=== PATIENT | female | born 1945 | race Caucasian/White ===

== ENCOUNTER 2017-05-26 23:23 | Emergency (ER) | payer MEDICARE, MEDICAID ==
[~2017-05-26] VITALS: Ht 165.1 cm; Wt 113.4 kg
[~2017-05-26 23:23] MED LIST: AC325T PO; AC500T PO; ALBU17AE3 INH; ALBU8.5H2 IH; ASCO500T20 PO; ASP81TEC PO; ATRV10T PO; BIMA2.5D4 OP; BRIM5DRO7 OS; CALC-760 PO; CALC-80 PO; CARB10DR OD; CARB15DR75 OD; CEFD300C3 PO; CEFP500T4 PO; CEFU500T PO; CEPH500C PO; CIPR500T78 PO; CLC500CT PO; CLIN-62 PO; CLIN300C3 PO; CLOT15CR5 TP; DILT180C PO; DILT180C55 PO; DLT120CCR PO; DLT90CCR PO; FLT05NA16; HYDR-34 PO; HYDR-3730 PO; HYDR-3816 PO; HYDR-707 PO; HYDR1TAB PO; LECI400C PO; LECITHIN 1200 MG PO; LEVO500T78 PO; LOSA25TA21 PO; MAGN200T3 PO; MAGNESIUM PO; MECL-124 PO; MELO-195 PO; MELO-198 PO; MELO15TA14 PO; METF500T4 PO; METH4TAB PO; METR500T17 PO; MNTL10T PO; MTF500T PO; MTP25TSR PO; MULT-974 PO; MULT1CAP27 PO; NITR-65 PO; NTR.4SL SL; OMEG1CAP51 PO; OMEG1CAP74 PO; OMG1KC PO; OXYC-12 PO; OXYC1TAB25 PO; PANT40TA PO; PENI500T PO; PNT40TEC PO; PRAS10TA6 PO; PRAV80TA2 PO; PRM25T PO; PRV20T PO; SCR1T1 PO; TIAZAC; [UNRECOGNIZED DRUG - CODE] PO; [UNRECOGNIZED DRUG - OTHER] PO
[2017-05-26] MEDS ORDERED: NS IV 1000 ML 1,000 ML IV ONE (23:39)
[2017-05-26] MEDS ORDERED: ACETAMINOPHEN 500 MG TAB (TYLENOL) PO PRN (23:45)
[2017-05-26 23:46] LABS: BILIRUBIN,URINE NEGATIVE (NEGATIVE); KETONES,URINE NEGATIVE (NEGATIVE); LEUKOCYTE ESTERASE ,URINE 2+ (NEGATIVE); NITRITE,URINE NEGATIVE (NEGATIVE); PH,URINE 6 (5-9); PROTEIN,URINE NEGATIVE (NEGATIVE); UROBILINOGEN,URINE NORMAL (NORMAL)
[2017-05-26 23:56] LABS: WBC,URINE 25-50 /HPF
[2017-05-26 23:56] LABS: BASOPHILS % (AUTO) 0 % (0-10); EOSINOPHILS # (AUTO) 0.1 10^3/uL (0.0-0.3); EOSINOPHILS % (AUTO) 1 % (0-10); LYMPHOCYTES # (AUTO) 0.9 X 10^3 (1.0-4.0); LYMPHOCYTES % (AUTO) 6 % (12-44); MEAN CORPUSCULAR HEMOGLOBIN 31 PG (25-34); MEAN CORPUSCULAR HGB CONC 34 G/DL (32-36); MEAN CORPUSCULAR VOLUME 91 FL (80-99); MEAN PLATELET VOLUME 8.8 FL (7.4-10.4); MONOCYTES # (AUTO) 0.8 X 10^3 (0.0-1.0); MONOCYTES % (AUTO) 5 % (0-12); NEUTROPHILS # (AUTO) 12.7 X 10^3 (1.8-7.8); NEUTROPHILS % (AUTO) 88 % (42-75); PLATELET COUNT 305 10^3/uL (130-400); RED BLOOD COUNT 4.61 10^6/uL (4.35-5.85); RED CELL DISTRIBUTION WIDTH 13.2 % (10.0-14.5); WHITE BLOOD COUNT 14.5 10^3/uL (4.3-11.0)
[2017-05-27 00:05] LABS: INR 0.9 (0.8-1.4); PROTHROMBIN TIME PATIENT 12.2 SEC (12.2-14.7)
[2017-05-27 00:12] LABS: BAND NEUTROPHILS 4 %; BASOPHILS % (MANUAL) 0 %; EOSINOPHILS % (MANUAL) 1 %; LYMPHOCYTES % (MANUAL) 3 %; NEUTROPHILS % (MANUAL) 89 %; REACTIVE LYMPHOCYTES 1 %
[2017-05-27 00:16] LABS: ALANINE AMINOTRANSFERASE 19 U/L (0-55); ANION GAP 14 MMOL/L (5-14); ASPARTATE AMINO TRANSFERASE 18 U/L (5-34); BILIRUBIN,TOTAL 0.8 MG/DL (0.1-1.0); BLOOD UREA NITROGEN 11 MG/DL (7-18); BUN/CREATININE RATIO 15; CALCIUM 9.3 MG/DL (8.5-10.1); CARBON DIOXIDE 21 MMOL/L (21-32); CHLORIDE 101 MMOL/L (98-107); CREATININE SERUM 0.71 MG/DL (0.60-1.30); GFR ESTIMATED > 60; GLUCOSE 164 MG/DL (70-105); POTASSIUM 4.2 MMOL/L (3.6-5.0); SODIUM 136 MMOL/L (135-145); TOTAL PROTEIN 7.1 GM/DL (6.4-8.2)
--- NOTE | 2017-05-27 00:18 | ED General ---
General Stated Complaint: VOMITING,BLOOD IN URINE,FEVER Source of Information: Patient, Family Exam Limitations: No Limitations History of Present Illness Time Seen by Provider: 23:35 Initial Comments Here with report of nausea and vomiting and difficulty with urination. Also reports fever today. Overall not been feeling well for the last 18-24 hours. States that she is feeling weak. Denies diarrhea. Does have increasing back pain that is typical for worse and normal. Also complains of headache. Timing/Duration: 12-24 Hours Severity: Moderate Associated Systoms: No Chest Pain, No Cough, Fever/Chills, Nausea/Vomiting, No Shortness of Air, Weakness Allergies and Home Medications Allergies Coded Allergies: sulfabenzamide (Unverified Allergy, Mild, 03/27/12) erythromycin base (Verified Allergy, Unknown, 10/17/06) penicillin G (Verified Allergy, Unknown, 10/17/06) nitrofurantoin (Verified Adverse Reaction, Unknown, 07/02/16) Possible cause of acute hepatitis Home Medications Acetaminophen 325 Mg Tab, 650 MG PO Q4H PRN for PAIN, (Reported) PRN PAIN Albuterol 8.5 Gm Hfa.aer.ad, 2 PUFF IH QID PRN for SHORTNESS OF BREATH, ( Reported) NEEDED FOR SHORTNESS OF BREATH Ascorbic Acid 500 Mg Tablet, 500 MG PO DAILY, (Reported) Aspirin 81 Mg Tabec, 81 MG PO DAILY, (Reported) Bimatoprost 2.5 Ml Drops, 2.5 ML OP DAILY, (Reported) Calcium Carbonate 500 Mg Tab.chew, 500-1,000 MG PO TID PRN for INDIGESTION, ( Reported) TAKES 1 TO 2 (500MG) TABLETS THREE TIMES DAILY AFTER MEALS NEEDED FOR INDIGESTION Calcium Carbonate/Vitamin D3 1 Each Tablet, 1 TAB PO DAILY, (Reported) Carboxymethylcellulose Sodium 15 Ml Drops, 1 DROP OD BID, (Reported) Cefuroxime Axetil 500 Mg Tablet, 500 MG PO BID, #14 Prescribed by: HEATHER UMANA on 09/14/16 1327 Diltiazem Hcl 180 Mg Cap.sr.24h, 180 MG PO DAILY, (Reported) Fluticasone Propionate 16 Gm [place], 2 SPRAYS NA BID PRN for ALLERGIES, (Reported ) Hydrocodone/Acetaminophen 1 Each Tablet, 1 EACH PO Q6H PRN for ABDOMINAL PAIN, # 30 Ref 0 Prescribed by: MARIN JIN on 08/28/15 2235 Losartan Potassium 25 Mg Tablet, 25 MG PO DAILY, (Reported) Magnesium 200 Mg Tablet, 200 MG PO HS, (Reported) Meloxicam 15 Mg Tablet, 15 MG PO HS, (Reported) Montelukast Sodium 10 Mg Tab, 10 MG PO HS, (Reported) Multivitamin 1 Each Tablet, 1 TAB PO DAILY, (Reported) Nitroglycerin 0.4 Mg Subl, SL UD PRN for CHEST PAIN, (Reported) 1 TABLET EVERY 5 MINUTES X 3 DOSES NEEEDED FOR CHEST PAIN [place] 3 Polyunsat Fatty Acids 1,000 Mg Cap, 1,000 MG PO HS, (Reported) [place]-3/Dha/Epa/Fish Oil 1,000 Mg Capsule, 2,000 MG PO DAILY, (Reported) TAKES 2 (1000MG) CAPSULE Pantoprazole Sodium 40 Mg Tablet.dr, 80 MG PO BID, (Reported) 40 MG IN AM 40 MG AT HS [Lecithin 1200MG] , 1,200 MG PO BID, (Reported) Constitutional: see HPI, chills, No diaphoresis, fever, weakness EENTM: no symptoms reported Respiratory: No cough, No short of breath Cardiovascular: No chest pain, No edema Gastrointestinal: No abdominal pain, No diarrhea, nausea, vomiting Genitourinary: see HPI, dysuria, hematuria Musculoskeletal: see HPI, back pain, muscle pain Skin: no symptoms reported All Other Systems Reviewed Negative Unless Noted: Yes Past Tjrghzy-Gnsdxi-Enczog Hx Patient Social History Alcohol Use: Denies Use Recreational Drug Use: No Smoking Status: Never a Smoker 2nd Hand Smoke Exposure: Yes Recent Foreign Travel: No Contact w/Someone Who Travel: No Recent Hopitalizations: No Immunizations Up To Date Tetanus Booster (TDap): Less than 5yrs Date of Pneumonia Vaccine: Jul 18, 2012 Date of Influenza Vaccine: Sep 04, 2015 Seasonal Allergies Seasonal Allergies: No Surgeries HX Surgeries: Yes (CATH 2011,[id number], D&C 80', CHOLY 78', UMB HERNIA REPAIR) Surgeries: Coronary Stent, Eye Surgery, Gallbladder Respiratory Hx Respiratory Disorders: Yes (WEARS CPAP AT HOME) Respiratory Disorders: Asthma, Sleep Apnea, COPD Cardiovascular Hx Cardiac Disorders: Yes (STENT x1) Cardiac Disorders: Coronary Artery Disease, High Cholesterol, Hypertension Neurological Hx Neurological Disorders: Yes Neurological Disorders: Headaches /Migraines 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 System Hx 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 Disorders: No Sexually Transmitted Disease: No HIV/AIDS: No Female 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 Disorders: 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 Genitourinary Hx Genitourinary Disorders: No Gastrointestinal Hx Gastrointestinal Disorders: Yes (SOME CONSTIPATION) Gastrointestinal Disorders: Abdominal Hernia, Gastroesophageal Reflux Musculoskeletal Hx Musculoskeletal Disorders: Yes (ARTHRITIS) Musculoskeletal Disorders: Rheumatoid Arthritis Endocrine Hx Endocrine Disorders: Yes Endocrine Disorders: Diabetes, Non-Insulin dep HEENT HX ENT Disorders: No HEENT Disorders: Glaucoma Cancer Hx Cancer: No Psychosocial Hx Psychiatric Problems: No Integumentary HX Skin/Integumentary Disorder: Yes Skin/Integumentary Disorders: Psoriasis Blood Transfusions Hx Blood Disorders: No Adverse Reaction to a Blood Tr: No Reviewed Nursing Assessment Reviewed/Agree w Nursing PMH: Yes Family Medical History Family Medial History: Cancer 03 MOTHER, Cataract 03 MOTHER, Chest pain 03 FATHER, Congenital heart disease 03 FATHER, Congestive heart failure 03 FATHER, Family history: Arthritis 03 MOTHER, Family history: Asthma 03 MOTHER, Family history: Cardiovascular disease 03 FATHER, Family history: Coronary thrombosis 03 MOTHER, Family history: Diabetes mellitus 09 SISTER Family history: Hypertension 03 FATHER, 03 MOTHER, 09 SISTER 09 SISTER 09 SISTER 09 SISTER Family history: Thyroid disorder 03 MOTHER, Headache 03 FATHER, 03 MOTHER, 09 SISTER 09 SISTER 09 SISTER 09 SISTER Hearing loss 09 SISTER Heart disease 03 FATHER, Hypercholesterolemia 03 FATHER, 09 SISTER Myocardial infarction 03 FATHER, Parkinson's disease 03 MOTHER, Psychotic disorder 09 SISTER Stroke 09 SISTER Visual impairment 03 FATHER, 03 MOTHER, 09 SISTER 09 SISTER 09 SISTER 09 SISTER Physical Exam-Suspected Sepsis Physical Exam Vital Signs Capillary Refill : General Appearance: No Apparent Distress, WD/WN HEENT: PERRL/EOMI, Pharynx Normal Neck: Non Tender, Supple Respiratory: Lungs Clear, Normal Breath Sounds Cardiovascular: Regular Rate, Rhythm, No Murmur Gastrointestinal: Non Tender, Soft Back: Normal Inspection, No CVA Tenderness, No Vertebral Tenderness Extremity: Non Tender, No Calf Tenderness Neurologic/Psychiatric: Alert, Oriented x3 Skin: normal color, warm/dry Focused Exam Lactic Acid Level Laboratory Tests Test 05/26/17 23:43 Lactic Acid Level 1.89 MMOL/L (0.50-2.00) Progress/Results/Core Measures Suspected Sepsis SIRS Temperature: Pulse: Respiratory Rate: Laboratory Tests 05/26/17 23:43: White Blood Count 14.5H Blood Pressure / Mean: Laboratory Tests 05/26/17 23:43: Creatinine 0.71, INR Comment 0.9, Platelet Count 305, Total Bilirubin 0.8 Results/Orders Lab Results Laboratory Tests Test 05/26/17 23:38 05/26/17 23:43 Range/Units Urine Color YELLOW Urine Clarity SLIGHTLY CLOUDY Urine pH 6 5-9 Urine Specific [place] 1.015 L 1.016-1.022 Urine Protein NEGATIVE NEGATIVE Urine Glucose (UA) NEGATIVE NEGATIVE Urine Ketones NEGATIVE NEGATIVE Urine Nitrite NEGATIVE NEGATIVE Urine Bilirubin NEGATIVE NEGATIVE Urine Urobilinogen NORMAL NORMAL MG/DL Urine Leukocyte Esterase 2+ H NEGATIVE Urine RBC (Auto) 1+ H NEGATIVE Urine RBC 0-2 /HPF Urine WBC 25-50 H /HPF Urine Squamous Epithelial Cells 10-25 H /HPF Urine Crystals NONE /LPF Urine Bacteria TRACE /HPF Urine Casts NONE /LPF Urine Mucus MODERATE H /LPF Urine Culture Indicated YES White Blood Count 14.5 H 4.3-11.0 10^3/uL Red Blood Count 4.61 4.35-5.85 10^6/uL Hemoglobin 14.1 11.5-16.0 G/DL Hematocrit 42 35-52 % Mean Corpuscular Volume 91 80-99 FL Mean Corpuscular Hemoglobin 31 25-34 PG Mean Corpuscular Hemoglobin Concent 34 32-36 G/DL Red Cell Distribution Width 13.2 10.0-14.5 % Platelet Count 305 130-400 10^3/uL Mean Platelet Volume 8.8 7.4-10.4 FL Neutrophils (%) (Auto) 88 H 42-75 % Lymphocytes (%) (Auto) 6 L 12-44 % Monocytes (%) (Auto) 5 0-12 % Eosinophils (%) (Auto) 1 0-10 % Basophils (%) (Auto) 0 0-10 % Neutrophils # (Auto) 12.7 H 1.8-7.8 X 10^3 Lymphocytes # (Auto) 0.9 L 1.0-4.0 X 10^3 Monocytes # (Auto) 0.8 0.0-1.0 X 10^3 Eosinophils # (Auto) 0.1 0.0-0.3 10^3/uL Basophils # (Auto) 0.0 0.0-0.1 10^3/uL Neutrophils % (Manual) 89 % Lymphocytes % (Manual) 3 % Monocytes % (Manual) 2 % Eosinophils % (Manual) 1 % Basophils % (Manual) 0 % Band Neutrophils 4 % Reactive Lymphocytes 1 % Blood Morphology Comment NORMAL Prothrombin Time 12.2 12.2-14.7 SEC INR Comment 0.9 0.8-1.4 Activated Partial Thromboplast Time 28 24-35 SEC Sodium Level 136 135-145 MMOL/L Potassium Level 4.2 3.6-5.0 MMOL/L Chloride Level 101 98-107 MMOL/L Carbon Dioxide Level 21 21-32 MMOL/L Anion Gap 14 5-14 MMOL/L Blood Urea Nitrogen 11 7-18 MG/DL Creatinine 0.71 0.60-1.30 MG/DL Estimat Glomerular Filtration Rate > 60 BUN/Creatinine Ratio 15 Glucose Level 164 H 70-105 MG/DL Lactic Acid Level 1.89 0.50-2.00 MMOL/L Calcium Level 9.3 8.5-10.1 MG/DL Total Bilirubin 0.8 0.1-1.0 MG/DL Aspartate Amino Transf (AST/SGOT) 18 5-34 U/L Alanine Aminotransferase (ALT/SGPT) 19 0-55 U/L Alkaline Phosphatase 71 40-136 U/L Total Protein 7.1 6.4-8.2 GM/DL Albumin 4.0 3.2-4.5 GM/DL My Orders Orders - TRAM JENSEN MD Cbc With Automated Diff (05/26/17 23:39) Comprehensive Metabolic Panel (05/26/17 23:39) Lactic Acid Analyzer (05/26/17 23:39) Blood Culture (05/26/17 23:39) Sputum Culture (05/26/17 23:39) Ua Culture If Indicated (05/26/17 23:39) Protime With Inr (05/26/17 23:39) Partial Thromboplastin Time (05/26/17 23:39) Chest 1 View, Ap/Pa Only (05/26/17 23:39) O2 (05/26/17 23:39) Acetaminophen Tablet (Tylenol Tablet) (05/26/17 23:45) Saline Lock/Iv-Start (05/26/17 23:39) Vital Signs Adult Sepsis Patie Q1HR (05/26/17 23:39) Remove Rings In Anticipation O (05/26/17 23:39) Ns Iv 1000 Ml (Sodium Chloride 0.9%) (05/26/17 23:39) Urine Culture (05/26/17 23:38) Manual Differential (05/26/17 23:43) Ceftriaxone Injection (Rocephin Injectio (05/27/17 01:00) Ketorolac Injection (Toradol Injection) (05/27/17 00:54) Medications Given in ED Current Medications Medications Dose Ordered Sig/Tyra Route Start Time Stop Time Status Last Admin Dose Admin Acetaminophen 1,000 mg ONCE PRN PO 05/26/17 23:45 05/26/17 23:53 DC 05/26/17 23:53 1,000 MG Ceftriaxone Sodium 1000 mg/ Sodium Chloride 50 ml @ 100 mls/hr ONCE ONCE IV 05/27/17 01:00 05/27/17 01:29 DC 05/27/17 01:08 100 MLS/HR Sodium Chloride 1,000 ml @ 0 mls/hr Q0M ONCE IV 05/26/17 23:39 05/26/17 23:42 DC 05/26/17 23:53 1,000 MLS/HR Vital Signs/I&O Capillary Refill : Progress Note : Progress Note Seen and evaluated. IV, labs, UA, normal saline 1 L bolus, lactic acid and blood cultures ordered. Tylenol 1 g by mouth given. Monitor patient. Rocephin 1 g IV for UTI. Toradol 30 mg IV for pain. Monitor patient. Improved at 0155: Discharged home with return precautions. Patient verbalize understanding instructions and agreement with plan. Diagnostic Imaging Diagonstic Imaging: Xray Plain Films/CT/US/NM/MRI: chest Comments No acute findings Reviewed: Reviewed by Me Departure Impression Impression: Primary Impression: Urinary tract infection Qualified Codes: N30.00 - Acute cystitis without hematuria Disposition: HOME, SELF-CARE Condition: Stable Departure-Patient Inst. Decision time for Depature: 01:57 Referrals: VERO VERDUGO DO (PCP) Primary Care Physician REESE HEBERT (Family) Primary Care Physician Patient Instructions: Low Back Pain (DC), Urinary Tract Infection, Adult (DC) Add. Discharge Instructions: Take medications as directed. Drink plenty of fluids. Follow-up with your DrYael in a few days for recheck. Return for worse pain, fever, vomiting, weakness, breathing problems or other concerns as needed. Scripts Hydrocodone/Acetaminophen (Hydrocodon -Acetaminophen 5-325) 1 Each Tablet 1 EACH PO Q4H Y for PAIN-MODERATE, #10 TAB 0 Refills Prov: TRAM JENSEN MD 05/27/17 Ciprofloxacin HCl (Ciprofloxacin HCl) 500 Mg Tablet 500 MG PO BID, #14 TAB Prov: TRAM JENSEN MD 05/27/17 TRAM JENSEN MD May 27, 2017 00:18
[2017-05-27] MEDS ORDERED: KETOROLAC 30 MG/ML VIAL IVP STA (00:54)
[2017-05-27] MEDS ORDERED: cefTRIAXone INJECTION 1,000 MG in NS (IVPB) 50 ML IV ONE (01:00)
[2017-05-27] MEDS ORDERED: HYDR-3812 PO (01:59)
[2017-05-27] MEDS ORDERED: CIPR500T4 PO (01:59)
[2017-05-27] MEDS ORDERED: RX-HYDROCODONE/APAP 5/325 MG #4 TAB PK PO PRN (02:00)
[2017-05-27 02:08] VITALS: BP 133/72
--- NOTE | 2017-05-27 07:02 | Diagnostic Imaging Report ---
INDICATION: Chest pain Portable chest 1:33 PM Heart size and pulmonary vascularity are normal. Lungs are clear. There are no effusions or pneumothoraces. IMPRESSION: Negative chest Dictated by: Dictated on workstation # [id number]
== END 2017-05-27 02:08 | disposition home or self-care (01) ==
LOC: EDUNIT# 23:23 → ER 23:26
DX: N39.0 Urinary tract infection, site not specified (principal); J44.9 Chronic obstructive pulmonary disease, unspecified; I25.10 Atherosclerotic heart disease of native coronary artery without angina pectoris; I10 Essential (primary) hypertension; E78.00 Pure hypercholesterolemia, unspecified; G43.909 Migraine, unspecified, not intractable, without status migrainosus; K21.9 Gastro-esophageal reflux disease without esophagitis; M06.9 Rheumatoid arthritis, unspecified; G47.30 Sleep apnea, unspecified; Z79.82 Long term (current) use of aspirin; Z82.49 Family history of ischemic heart disease and other diseases of the circulatory system; Z87.19 Personal history of other diseases of the digestive system; Z95.5 Presence of coronary angioplasty implant and graft
CPT/HCPCS: 36415; 71010; 80053; 81000; 83605; 85007; 85027; 85610; 85730; 87040; 87088; 96361; 96365; 96375

== ENCOUNTER 2018-02-13 22:33 | Emergency (ER) | payer MEDICARE, MEDICAID ==
[~2018-02-13] VITALS: Ht 165.1 cm; Wt 113.4 kg
[~2018-02-13 22:33] MED LIST changes: +ACET325T49 PO; +ACHD5005 PO; +ASCO500T7 PO; +ASPI-983 PO; -BIMA2.5D4 OP; +BIMA2.5D4 OU; +CALC-9 PO; +CALC500T3 PO; +CARB15DR74 OU; +CIPR500T4 PO; +FLUT16SP22 NS; +MAGN200T PO; +MAGN250T13 PO; +MELO15TA39 PO; +MONT10TA24 PO; +MULT-35 PO; +NITR0.4T39 SL; +PANT40TA3 PO; +RT-ALBUINH IH; +[UNRECOGNIZED DRUG - CODE] PO
--- OUTSIDE RECORDS SUMMARY | 2018-02-13 22:38 | XMS REPORT | Encounter Summary ---
Author Author [facility] Organization [facility] Address Unknown Phone Unavailable Care Team Providers Care Civil Lawyer Name Role Phone Aroldo Rios NP PCP Encounter Details Date Type Department Care Team Description 06/13/2017 [facility] [address] [place] [address] Social History Tobacco Use Types Packs/Day Years Used Date Never Smoker Smokeless Tobacco: Never Used Alcohol Use Drinks/Week oz/Week Comments No 0 Standard 0.0 drinks or equivalent Sex Assigned at Date Recorded Not on file as of this encounter Functional Status Functional Status Response Date of Assessment Does the patient have a hearing impairment: No 06/13/2017 Does the patient have a visual impairment: Yes 06/13/2017 Does the patient have impaired ambulation: Yes 06/13/2017 Does the patient have an activity of daily living No 06/13/2017 (ADL) impairment: Does the patient have an instrumental activity of No 06/13/2017 daily living (IADL) impairment: Cognitive Status Response Date of Assessment Does the patient have a cognitive impairment: No 06/13/2017 as of this encounter Plan of Treatment Date Type Specialty Care Team Description 06/13/2017 Procedure Pass Neurosurgery as of this encounter Visit Diagnoses Not on filein this encounter
--- OUTSIDE RECORDS SUMMARY | 2018-02-13 22:38 | XMS REPORT | Clinical Summary ---
Author Author [facility] Organization [facility] Address Unknown Phone Unavailable Care Team Providers Care Lamination Assembler Name Role Phone Aroldo Rios NP PCP Source Comments Some departments are not documenting in the electronic medical record. If you do not see the information that you expected, contact Release of Information in the Health Information Management department at [phone] for further assistance in locating additional records.[facility] Allergies Active Allergy Reactions Severity Noted Date Comments Ampicillin RASH, AGITATION Medium 01/03/2017 Sulfa (Sulfonamide UNKNOWN Low 01/03/2017 Antibiotics) Current Medications Prescription Sig. Disp. Refills Start End Date Status Date Magnesium 200 mg tab Take by mouth. Active FLAXSEED OIL (OMEGA 3 PO) Take by mouth. Active metFORMIN (GLUCOPHAGE) Take 500 mg by mouth Active 500 mg tabletIndications: twice daily with meals. 750 MG IN THE MORNING, Indications: 750 MG IN 500 MG AT BEDTIME. THE MORNING, 500 MG AT BEDTIME. meloxicam (MOBIC) 15 mg Take 15 mg by mouth Active tablet daily. acetaminophen (TYLENOL) Take 325 mg by mouth Active 325 mg tablet every 4 hours as needed for Pain. calcium carbonate (TUMS) Chew 500 mg by mouth Active 500 mg (200 mg elemental daily. calcium) chewable tablet Carboxymethylcellulose Place into or around Active Sodium drop eye(s). MULTIVITAMINS WITH Take by mouth. Active FLUORIDE (MULTI-VITAMIN PO) diltiazem CD (CARDIZEM Take 180 mg by mouth Active CD) 180 mg capsule daily. ascorbic acid (VITAMIN C) Take 500 mg by mouth Active 500 mg tablet daily. Lecithin 1,200 mg cap Take by mouth. Active BRIMONIDINE TARTRATE Place into or around Active (BRIMONIDINE OP) eye(s). pravastatin (PRAVACHOL) Take 20 mg by mouth at Active 20 mg tablet bedtime daily. nitroglycerin (NITRODUR) Apply 1 Patch to top of Active 0.4 mg/hr patch skin as directed daily. DOCOSAHEXANOIC ACID/EPA Take by mouth. Active (FISH OIL PO) aspirin 81 mg chewable Chew 81 mg by mouth Active tablet daily. Take with food. ALBUTEROL IN Inhale by mouth into the Active lungs. FLUTICASONE PROPIONATE Use as directed. Active (BULK) MISC montelukast (SINGULAIR) Take 10 mg by mouth at Active 10 mg tablet bedtime daily. ROSUVASTATIN CALCIUM Take by mouth. Active (CRESTOR PO) Active Problems Problem Noted Date Meningioma (HCC) 01/03/2017 Family History Medical History Relation Name Comments Hypertension Daughter Heart Failure Father Arthritis Mother Cancer Mother Hypertension Mother Melanoma Mother Stroke Mother Hypertension Son Relation Name Status Comments Daughter Father Mother Son Social History Tobacco Use Types Packs/Day Years Used Date Never Smoker Smokeless Tobacco: Never Used Alcohol Use Drinks/Week oz/Week Comments No 0 Standard 0.0 drinks or equivalent Sex Assigned at Date Recorded Not on file Last Filed Vital Signs Vital Sign Reading Time Taken Blood Pressure 156/96 06/13/2017 4:18 PM CDT Pulse 77 06/13/2017 4:18 PM CDT Temperature 36.4 C (97.5 F) 06/13/2017 4:18 PM CDT Respiratory Rate 20 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 Oxygen Saturation 98% 06/13/2017 4:18 PM CDT Inhaled Oxygen - - Concentration Weight 116.1 kg (256 lb) 06/13/2017 4:18 PM CDT Height 162.6 cm (5' 4") 06/13/2017 4:18 PM CDT Body Mass Index 43.94 06/13/2017 4:18 PM CDT Plan of Treatment Date Type Specialty Care Team Description 06/13/2017 Procedure Pass Neurosurgery Health Maintenance Due Date Last Done Comments HEPATITIS C SCREENING 1945 PHYSICAL (COMPREHENSIVE) 1952 EXAM PERTUSSIS VACCINE 1956 TETANUS VACCINE 1962 BREAST CANCER SCREENING 1985 COLORECTAL CANCER 1995 SCREENING SHINGLES VACCINE 2005 OSTEOPOROSIS SCREENING 2010 PREVNAR/PNEUMOVAX (#1) 2010 INFLUENZA VACCINE 08/06/2018 Results Not on filefrom Last 3 Months
--- OUTSIDE RECORDS SUMMARY | 2018-02-13 22:48 | XMS REPORT | Continuity of Care Document ---
Author Author [facility] Address Unknown Phone Unavailable Allergies Active Description Code Type Severity Reaction Onset Reported/Identified Relationship to Patient Clinical Status Yes erythromycin base [id number] Drug Allergy Unknown N/A 10/17/2006 Yes penicillin G [id number] Drug Allergy Unknown N/A 10/17/2006 Yes ampicillin Drug Allergy N/A N/A 03/23/2009 Yes erythromycin Drug Allergy N/ A N/A 03/23/2009 Yes ampicillin Drug Allergy 03/23/2009 Yes erythromycin Drug Allergy 03/23/2009 Yes sulfa drug Drug Allergy 05/13/2011 Yes sulfabenzamide [id number] Drug Allergy Mild N/A 03/27/2012 Yes nitrofurantoin [id number] Drug Allergy Unknown N/A 07/02/2016 Medications There is no data. Problems Date Dx Coded Attending Type Code Diagnosis Diagnosed By 08/07/2008 JAG NEWELL MD 401.1 ESSENTIAL HYPERTENSION BENIGN 08/07/2008 JAG NEWELL MD 786.07 WHEEZING 08/07/2008 JAG NEWELL MD 840.9 SPRAIN/STRAIN SHOULDER/ARM 08/07/2008 JAG NEWELL MD 401.1 ESSENTIAL HYPERTENSION BENIGN 08/07/2008 JAG NEWELL MD 786.07 WHEEZING 08/07/2008 JAG NEWELL MD 840.9 SPRAIN/STRAIN SHOULDER/ARM 08/07/2008 401.1 ESSENTIAL HYPERTENSION BENIGN 08/07/2008 786.07 WHEEZING 08/07/2008 840.9 SPRAIN/STRAIN SHOULDER/ARM 08/07/2008 JAG NEWELL MD 401.1 ESSENTIAL HYPERTENSION BENIGN 08/07/2008 JAG NEWELL MD 786.07 WHEEZING 08/07/2008 JAG NEWELL MD 840.9 SPRAIN/STRAIN SHOULDER/ARM 08/07/2008 401.1 ESSENTIAL HYPERTENSION BENIGN 08/07/2008 786.07 WHEEZING 08/07/2008 840.9 SPRAIN/STRAIN SHOULDER/ARM 08/07/2008 401.1 ESSENTIAL HYPERTENSION BENIGN 08/07/2008 786.07 WHEEZING 08/07/2008 840.9 SPRAIN/STRAIN SHOULDER/ARM 08/07/2008 401.1 ESSENTIAL HYPERTENSION BENIGN 08/07/2008 786.07 WHEEZING 08/07/2008 840.9 SPRAIN/STRAIN SHOULDER/ARM 08/07/2008 JAG NEWELL MD 401.1 ESSENTIAL HYPERTENSION BENIGN 08/07/2008 REECE THIBODEAUX, JAG 786.07 WHEEZING 08/07/2008 JAG NEWELL MD 840.9 SPRAIN/STRAIN SHOULDER/ARM 08/07/2008 401.1 ESSENTIAL HYPERTENSION BENIGN 08/07/2008 786.07 WHEEZING 08/07/2008 840.9 SPRAIN/STRAIN SHOULDER/ARM 08/07/2008 401.1 ESSENTIAL HYPERTENSION BENIGN 08/07/2008 786.07 WHEEZING 08/07/2008 840.9 SPRAIN/STRAIN SHOULDER/ARM 08/07/2008 401.1 ESSENTIAL HYPERTENSION BENIGN 08/07/2008 786.07 WHEEZING 08/07/2008 840.9 SPRAIN/STRAIN SHOULDER/ARM 08/07/2008 KARTIK GREY VERO K 401.1 ESSENTIAL HYPERTENSION BENIGN 08/07/2008 KARTIK GREY VERO K 786.07 WHEEZING 08/07/2008 VERDUGO DO VERO K 840.9 SPRAIN/STRAIN SHOULDER/ARM 08/07/2008 HAILE RENDON DDS 401.1 ESSENTIAL HYPERTENSION BENIGN 08/07/2008 HAILE RENDON DDS 786.07 WHEEZING 08/07/2008 HAILE RENDON DDS 840.9 SPRAIN/STRAIN SHOULDER/ARM 08/07/2008 KARTIK GREY VERO K 401.1 ESSENTIAL HYPERTENSION BENIGN 08/07/2008 KARTIK GREY VERO K 786.07 WHEEZING 08/07/2008 VERDUGO DO VERO K 840.9 SPRAIN/STRAIN SHOULDER/ARM 08/07/2008 REESE HEBERT APRN 401.1 ESSENTIAL HYPERTENSION BENIGN 08/07/2008 REESE HEBERT APRN 786.07 WHEEZING 08/07/2008 REESE HEBERT APRN 840.9 SPRAIN/STRAIN SHOULDER/ARM 08/07/2008 HAILE RENDON DDS 401.1 ESSENTIAL HYPERTENSION BENIGN 08/07/2008 HAILE RENDON DDS 786.07 WHEEZING 08/07/2008 HAILE RENDON DDS 840.9 SPRAIN/STRAIN SHOULDER/ARM 08/07/2008 VERDUGO DO, VERO K 401.1 ESSENTIAL HYPERTENSION BENIGN 08/07/2008 VERDUGO DO, VERO K 786.07 WHEEZING 08/07/2008 VERDUGO DO, VERO K 840.9 SPRAIN/STRAIN SHOULDER/ARM 08/07/2008 VERDUGO DO, VERO K 401.1 ESSENTIAL HYPERTENSION BENIGN 08/07/2008 VERDUGO DO, VERO K 786.07 WHEEZING 08/07/2008 VERDUGO DO, VERO K 840.9 SPRAIN/STRAIN SHOULDER/ARM 08/07/2008 REESE HEBERT APRN R 401.1 ESSENTIAL HYPERTENSION BENIGN 08/07/2008 REESE HEBERT APRN R 786.07 WHEEZING 08/07/2008 REESE HEBERT APRN R 840.9 SPRAIN/STRAIN SHOULDER/ARM 08/07/2008 REESE HEBERT APRN R 401.1 ESSENTIAL HYPERTENSION BENIGN 08/07/2008 REESE HEBERT APRN 786.07 WHEEZING 08/07/2008 REESE HEBERT APRN 840.9 SPRAIN/STRAIN SHOULDER/ARM 08/07/2008 KARTIK DO VERO K 401.1 ESSENTIAL HYPERTENSION BENIGN 08/07/2008 KARTIK DO, VERO K 786.07 WHEEZING 08/07/2008 VERDUGO DO VERO K 840.9 SPRAIN/STRAIN SHOULDER/ARM 08/07/2008 REESE HEBERT APRN R 401.1 ESSENTIAL HYPERTENSION BENIGN 08/07/2008 REESE HEBERT APRN R 786.07 WHEEZING 08/07/2008 REESE HEBERT APRN 840.9 SPRAIN/STRAIN SHOULDER/ARM 08/07/2008 VERDUGO DO, VERO K 401.1 ESSENTIAL HYPERTENSION BENIGN 08/07/2008 VERDUGO DO, VERO K 786.07 WHEEZING 08/07/2008 VERDUGO DO, VERO K 840.9 SPRAIN/STRAIN SHOULDER/ARM 08/07/2008 REESE HEBERT APRN R 401.1 ESSENTIAL HYPERTENSION BENIGN 08/07/2008 REESE HEBERT APRN R 786.07 WHEEZING 08/07/2008 REESE HEBERT APRN R 840.9 SPRAIN/STRAIN SHOULDER/ARM 08/07/2008 VERDUGO DO, VERO K 401.1 ESSENTIAL HYPERTENSION BENIGN 08/07/2008 VERDUGO DO VERO K 786.07 WHEEZING 08/07/2008 VERO VERDUGO DO 840.9 SPRAIN/STRAIN SHOULDER/ARM 08/07/2008 REESE HEBERT APRN 401.1 ESSENTIAL HYPERTENSION BENIGN 08/07/2008 REESE HEBERT APRN 786.07 WHEEZING 08/07/2008 REESE HEBERT APRN 840.9 SPRAIN/STRAIN SHOULDER/ARM 08/07/2008 DELLA AGUILAR MD 401.1 ESSENTIAL HYPERTENSION BENIGN 08/07/2008 DELLA AGUILAR MD 786.07 WHEEZING 08/07/2008 DELLA AGUILAR MD 840.9 SPRAIN/STRAIN SHOULDER/ARM 11/21/2008 JAG NEWELL MD 477.9 RHINITIS ALLERGIC 11/21/2008 JAG NEWELL MD 493.90 ASTHMA UNSPECIFIED 11/21/2008 JAG NEWELL MD 477.9 RHINITIS ALLERGIC 11/21/2008 JAG NEWELL MD 493.90 ASTHMA UNSPECIFIED 11/21/2008 477.9 RHINITIS ALLERGIC 11/21/2008 493.90 ASTHMA UNSPECIFIED 11/21/2008 JAG NEWELL MD 477.9 RHINITIS ALLERGIC 11/21/2008 JAG NEWELL MD 493.90 ASTHMA UNSPECIFIED 11/21/2008 477.9 RHINITIS ALLERGIC 11/21/2008 493.90 ASTHMA UNSPECIFIED 11/21/2008 477.9 RHINITIS ALLERGIC 11/21/2008 493.90 ASTHMA UNSPECIFIED 11/21/2008 477.9 RHINITIS ALLERGIC 11/21/2008 493.90 ASTHMA UNSPECIFIED 11/21/2008 JAG NEWELL MD 477.9 RHINITIS ALLERGIC 11/21/2008 JAG NEWELL MD 493.90 ASTHMA UNSPECIFIED 11/21/2008 477.9 RHINITIS ALLERGIC 11/21/2008 493.90 ASTHMA UNSPECIFIED 11/21/2008 477.9 RHINITIS ALLERGIC 11/21/2008 493.90 ASTHMA UNSPECIFIED 11/21/2008 477.9 RHINITIS ALLERGIC 11/21/2008 493.90 ASTHMA UNSPECIFIED 11/21/2008 VERO VERDUGO DO 477.9 RHINITIS ALLERGIC 11/21/2008 VERO VERDUGO DO 493.90 ASTHMA UNSPECIFIED 11/21/2008 HAILE RENDON DDS 477.9 RHINITIS ALLERGIC 11/21/2008 HAILE RENDON DDS 493.90 ASTHMA UNSPECIFIED 11/21/2008 VERDUGO DO, VERO K 477.9 RHINITIS ALLERGIC 11/21/2008 VERDUGO DO, VERO K 493.90 ASTHMA UNSPECIFIED 11/21/2008 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, REESE R 477.9 RHINITIS ALLERGIC 11/21/2008 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, REESE R 493.90 ASTHMA UNSPECIFIED 11/21/2008 JUSTICE DDS, HAILE D 477.9 RHINITIS ALLERGIC 11/21/2008 JUSTICE DDS, HALIE D 493.90 ASTHMA UNSPECIFIED 11/21/2008 VERDUGO DO, VERO K 477.9 RHINITIS ALLERGIC 11/21/2008 VERDUGO DO, VERO K 493.90 ASTHMA UNSPECIFIED 11/21/2008 VERDUGO DO, VERO K 477.9 RHINITIS ALLERGIC 11/21/2008 VERDUGO DO, VERO K 493.90 ASTHMA UNSPECIFIED 11/21/2008 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, REESE R 477.9 RHINITIS ALLERGIC 11/21/2008 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, REESE R 493.90 ASTHMA UNSPECIFIED 11/21/2008 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, REESE R 477.9 RHINITIS ALLERGIC 11/21/2008 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, REESE R 493.90 ASTHMA UNSPECIFIED 11/21/2008 VERDUGO DO, VERO K 477.9 RHINITIS ALLERGIC 11/21/2008 VERDUGO DO, VERO K 493.90 ASTHMA UNSPECIFIED 11/21/2008 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, REESE R 477.9 RHINITIS ALLERGIC 11/21/2008 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, REESE R 493.90 ASTHMA UNSPECIFIED 11/21/2008 VERDUGO DO, VERO K 477.9 RHINITIS ALLERGIC 11/21/2008 VERDUGO DO, VERO K 493.90 ASTHMA UNSPECIFIED 11/21/2008 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, REESE R 477.9 RHINITIS ALLERGIC 11/21/2008 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, REESE R 493.90 ASTHMA UNSPECIFIED 11/21/2008 VERDUGO DO, VERO K 477.9 RHINITIS ALLERGIC 11/21/2008 VERDUGO DO, VERO K 493.90 ASTHMA UNSPECIFIED 11/21/2008 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, REESE R 477.9 RHINITIS ALLERGIC 11/21/2008 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, REESE R 493.90 ASTHMA UNSPECIFIED 11/21/2008 LAUREN THIBODEAUX, DELLA 477.9 RHINITIS ALLERGIC 11/21/2008 LAUREN THIBODEAUX, DELLA 493.90 ASTHMA UNSPECIFIED 03/23/2009 JAG NEWELL MD 682.2 SKIN ABSCESS OF THE TRUNK - BACK 03/23/2009 JAG NEWELL MD 780.60 fever [as symptom] 03/23/2009 JAG NEWELL MD 682.2 SKIN ABSCESS OF THE TRUNK - BACK 03/23/2009 JAG NEWELL MD 780.60 fever [as symptom] 03/23/2009 682.2 SKIN ABSCESS OF THE TRUNK - BACK 03/23/2009 780.60 fever [as symptom] 03/23/2009 JAG NEWELL MD 682.2 SKIN ABSCESS OF THE TRUNK - BACK 03/23/2009 JAG NEWELL MD 780.60 fever [as symptom] 03/23/2009 682.2 SKIN ABSCESS OF THE TRUNK - BACK 03/23/2009 780.60 fever [as symptom] 03/23/2009 682.2 SKIN ABSCESS OF THE TRUNK - BACK 03/23/2009 780.60 fever [as symptom] 03/23/2009 682.2 SKIN ABSCESS OF THE TRUNK - BACK 03/23/2009 780.60 fever [as symptom] 03/23/2009 JAG NEWELL MD 682.2 SKIN ABSCESS OF THE TRUNK - BACK 03/23/2009 JAG NEWELL MD 780.60 fever [as symptom] 03/23/2009 682.2 SKIN ABSCESS OF THE TRUNK - BACK 03/23/2009 780.60 fever [as symptom] 03/23/2009 682.2 SKIN ABSCESS OF THE TRUNK - BACK 03/23/2009 780.60 fever [as symptom] 03/23/2009 682.2 SKIN ABSCESS OF THE TRUNK - BACK 03/23/2009 780.60 fever [as symptom] 03/23/2009 VERO VERDUGO DO 682.2 SKIN ABSCESS OF THE TRUNK - BACK 03/23/2009 VERO VERDUGO DO 780.60 fever [as symptom] 03/23/2009 HAILE RENDON DDS 682.2 SKIN ABSCESS OF THE TRUNK - BACK 03/23/2009 HAILE RENDON DDS 780.60 fever [as symptom] 03/23/2009 VERDUGO VERO GREY K 682.2 SKIN ABSCESS OF THE TRUNK - BACK 03/23/2009 VERDUGO KAREN GREYA K 780.60 fever [as symptom] 03/23/2009 REESE HEBERT APRN 682.2 SKIN ABSCESS OF THE TRUNK - BACK 03/23/2009 HEBERTREESE CROW APRN R 780.60 fever [as symptom] 03/23/2009 JUSTICE DDS, HAILE D 682.2 SKIN ABSCESS OF THE TRUNK - BACK 03/23/2009 JUSTICE DDS, HAILE D 780.60 fever [as symptom] 03/23/2009 VERDUGO DO, VERO K 682.2 SKIN ABSCESS OF THE TRUNK - BACK 03/23/2009 VERDUGO DO, VERO K 780.60 fever [as symptom] 03/23/2009 VERDUGO DO, VERO K 682.2 SKIN ABSCESS OF THE TRUNK - BACK 03/23/2009 VERDUGO DO, VERO K 780.60 fever [as symptom] 03/23/2009 HEBERT REESE GALEAS R 682.2 SKIN ABSCESS OF THE TRUNK - BACK 03/23/2009 HEBERT ADAL, REESE R 780.60 fever [as symptom] 03/23/2009 REESE HEBERT APRN R 682.2 SKIN ABSCESS OF THE TRUNK - BACK 03/23/2009 REESE HEBERT APRN R 780.60 fever [as symptom] 03/23/2009 VERDUGO DOKARENA K 682.2 SKIN ABSCESS OF THE TRUNK - BACK 03/23/2009 VERDUGO DO, VERO K 780.60 fever [as symptom] 03/23/2009 REESE HEBERT APRN R 682.2 SKIN ABSCESS OF THE TRUNK - BACK 03/23/2009 HEBERT REESE GALEAS R 780.60 fever [as symptom] 03/23/2009 VERDUGO DOKARENA K 682.2 SKIN ABSCESS OF THE TRUNK - BACK 03/23/2009 VERDUGO DO, VERO K 780.60 fever [as symptom] 03/23/2009 HEBERT REESE GALEAS R 682.2 SKIN ABSCESS OF THE TRUNK - BACK 03/23/2009 HEBERT ADAL, REESE R 780.60 fever [as symptom] 03/23/2009 VERDUGO DOKARENA K 682.2 SKIN ABSCESS OF THE TRUNK - BACK 03/23/2009 VERDUGO DO, VERO K 780.60 fever [as symptom] 03/23/2009 HEBERT REESE GALEAS R 682.2 SKIN ABSCESS OF THE TRUNK - BACK 03/23/2009 HEBERT REESE GALEAS R 780.60 fever [as symptom] 03/23/2009 DELLA AGUILAR MD 682.2 SKIN ABSCESS OF THE TRUNK - BACK 03/23/2009 DELLA AGUILAR MD 780.60 fever [as symptom] 03/27/2009 JAG NEWELL MD 682.9 CELLULITIS 03/27/2009 JAG NEWELL MD 682.9 CELLULITIS 03/27/2009 682.9 CELLULITIS 03/27/2009 JAG NEWELL MD 682.9 CELLULITIS 03/27/2009 682.9 CELLULITIS 03/27/2009 682.9 CELLULITIS 03/27/2009 682.9 CELLULITIS 03/27/2009 JAG NEWELL MD 682.9 CELLULITIS 03/27/2009 682.9 CELLULITIS 03/27/2009 682.9 CELLULITIS 03/27/2009 682.9 CELLULITIS 03/27/2009 VERO VERDUGO DO K 682.9 CELLULITIS 03/27/2009 JUSTICE NAJERA, HAILE Rivero 682.9 CELLULITIS 03/27/2009 VERDUGO VERO GREY K 682.9 CELLULITIS 03/27/2009 REESE HEBERT APRN R 682.9 CELLULITIS 03/27/2009 JUSTICE NAJERA, HAILE Rivero 682.9 CELLULITIS 03/27/2009 VERDUGO KAREN GREYA K 682.9 CELLULITIS 03/27/2009 KARTIK GREY, VERO K 682.9 CELLULITIS 03/27/2009 REESE HEBERT APRN R 682.9 CELLULITIS 03/27/2009 REESE HEBERT APRN 682.9 CELLULITIS 03/27/2009 VERO VERDUGO DO K 682.9 CELLULITIS 03/27/2009 REESE HEBERT APRN R 682.9 CELLULITIS 03/27/2009 VERDUGO VERO GREY K 682.9 CELLULITIS 03/27/2009 REESE HEBERT APRN 682.9 CELLULITIS 03/27/2009 VERO VERDUGO DO K 682.9 CELLULITIS 03/27/2009 REESE HEBERT APRN 682.9 CELLULITIS 03/27/2009 DELLA AGUILAR MD 682.9 CELLULITIS 04/06/2009 JAG NEWELL MD V58.30 ENCOUNTER FOR CHANGE OR REMOVAL OF NONSURGICAL WOUND DRESSING 04/06/2009 JAG NEWELL MD V58.30 ENCOUNTER FOR CHANGE OR REMOVAL OF NONSURGICAL WOUND DRESSING 04/06/2009 V58.30 ENCOUNTER FOR CHANGE OR REMOVAL OF NONSURGICAL WOUND DRESSING 04/06/2009 JAG NEWELL MD V58.30 ENCOUNTER FOR CHANGE OR REMOVAL OF NONSURGICAL WOUND DRESSING 04/06/2009 V58.30 ENCOUNTER FOR CHANGE OR REMOVAL OF NONSURGICAL WOUND DRESSING 04/06/2009 V58.30 ENCOUNTER FOR CHANGE OR REMOVAL OF NONSURGICAL WOUND DRESSING 04/06/2009 V58.30 ENCOUNTER FOR CHANGE OR REMOVAL OF NONSURGICAL WOUND DRESSING 04/06/2009 JAG NEWELL MD V58.30 ENCOUNTER FOR CHANGE OR REMOVAL OF NONSURGICAL WOUND DRESSING 04/06/2009 V58.30 ENCOUNTER FOR CHANGE OR REMOVAL OF NONSURGICAL WOUND DRESSING 04/06/2009 V58.30 ENCOUNTER FOR CHANGE OR REMOVAL OF NONSURGICAL WOUND DRESSING 04/06/2009 V58.30 ENCOUNTER FOR CHANGE OR REMOVAL OF NONSURGICAL WOUND DRESSING 04/06/2009 VERO VERDUGO DO V58.30 ENCOUNTER FOR CHANGE OR REMOVAL OF NONSURGICAL WOUND DRESSING 04/06/2009 HAILE RENDON DDS V58.30 ENCOUNTER FOR CHANGE OR REMOVAL OF NONSURGICAL WOUND DRESSING 04/06/2009 VERO VERDUGO DO V58.30 ENCOUNTER FOR CHANGE OR REMOVAL OF NONSURGICAL WOUND DRESSING 04/06/2009 REESE HEBERT APRN V58.30 ENCOUNTER FOR CHANGE OR REMOVAL OF NONSURGICAL WOUND DRESSING 04/06/2009 HAILE RENDON DDS V58.30 ENCOUNTER FOR CHANGE OR REMOVAL OF NONSURGICAL WOUND DRESSING 04/06/2009 VERO VERDUGO DO V58.30 ENCOUNTER FOR CHANGE OR REMOVAL OF NONSURGICAL WOUND DRESSING 04/06/2009 VERO VERDUGO DO V58.30 ENCOUNTER FOR CHANGE OR REMOVAL OF NONSURGICAL WOUND DRESSING 04/06/2009 REESE HEBERT APRN V58.30 ENCOUNTER FOR CHANGE OR REMOVAL OF NONSURGICAL WOUND DRESSING 04/06/2009 REESE HEBERT APRN V58.30 ENCOUNTER FOR CHANGE OR REMOVAL OF NONSURGICAL WOUND DRESSING 04/06/2009 VERO VERDUGO DO V58.30 ENCOUNTER FOR CHANGE OR REMOVAL OF NONSURGICAL WOUND DRESSING 04/06/2009 REESE HEBERT APRN V58.30 ENCOUNTER FOR CHANGE OR REMOVAL OF NONSURGICAL WOUND DRESSING 04/06/2009 VERO VERDUGO DO V58.30 ENCOUNTER FOR CHANGE OR REMOVAL OF NONSURGICAL WOUND DRESSING 04/06/2009 HEBERT REESE GALEAS V58.30 ENCOUNTER FOR CHANGE OR REMOVAL OF NONSURGICAL WOUND DRESSING 04/06/2009 VERO VERDUGO DO V58.30 ENCOUNTER FOR CHANGE OR REMOVAL OF NONSURGICAL WOUND DRESSING 04/06/2009 HEBERT REESE GALEAS V58.30 ENCOUNTER FOR CHANGE OR REMOVAL OF NONSURGICAL WOUND DRESSING 04/06/2009 DELLA AGUILAR MD V58.30 ENCOUNTER FOR CHANGE OR REMOVAL OF NONSURGICAL WOUND DRESSING 04/09/2009 JAG NEWELL MD 919.5 INSECT BITE INFECTED 04/09/2009 JAG NEWELL MD 919.5 INSECT BITE INFECTED 04/09/2009 919.5 INSECT BITE INFECTED 04/09/2009 JAG NEWELL MD 919.5 INSECT BITE INFECTED 04/09/2009 919.5 INSECT BITE INFECTED 04/09/2009 919.5 INSECT BITE INFECTED 04/09/2009 919.5 INSECT BITE INFECTED 04/09/2009 JAG NEWELL MD 919.5 INSECT BITE INFECTED 04/09/2009 919.5 INSECT BITE INFECTED 04/09/2009 919.5 INSECT BITE INFECTED 04/09/2009 919.5 INSECT BITE INFECTED 04/09/2009 VERDUGO DO, VERO K 919.5 INSECT BITE INFECTED 04/09/2009 HAILE RENDON DDS 919.5 INSECT BITE INFECTED 04/09/2009 VERDUGO DO, VERO K 919.5 INSECT BITE INFECTED 04/09/2009 HEBERT REESE GALEAS 919.5 INSECT BITE INFECTED 04/09/2009 HAILE RENDON DDS 919.5 INSECT BITE INFECTED 04/09/2009 VERDUGO DO, VERO K 919.5 INSECT BITE INFECTED 04/09/2009 VERDUGO DO, VERO K 919.5 INSECT BITE INFECTED 04/09/2009 HEBERT REESE GALEAS 919.5 INSECT BITE INFECTED 04/09/2009 HEBERT REESE GALEAS 919.5 INSECT BITE INFECTED 04/09/2009 VERDUGO DO, VERO K 919.5 INSECT BITE INFECTED 04/09/2009 HEBERT REESE GALEAS 919.5 INSECT BITE INFECTED 04/09/2009 VERDUGO DO, VERO K 919.5 INSECT BITE INFECTED 04/09/2009 REESE HEBERT APRN 919.5 INSECT BITE INFECTED 04/09/2009 VERO VERDUGO DO Connie 919.5 INSECT BITE INFECTED 04/09/2009 REESE HEBERT APRN 919.5 INSECT BITE INFECTED 04/09/2009 DELLA AGUILAR MD 919.5 INSECT BITE INFECTED 05/05/2009 JAG NEWELL MD 401.9 ESSENTIAL HYPERTENSION 05/05/2009 JAG NEWELL MD 599.0 URINARY TRACT INFECTION 05/05/2009 JAG NEWELL MD 788.41 URINARY FREQUENCY 05/05/2009 JAG NEWELL MD 788.63 URINARY URGENCY 05/05/2009 JAG NEWELL MD 401.9 ESSENTIAL HYPERTENSION 05/05/2009 JAG NEWELL MD 599.0 URINARY TRACT INFECTION 05/05/2009 JAG NEWELL MD 788.41 URINARY FREQUENCY 05/05/2009 JAG NEWELL MD 788.63 URINARY URGENCY 05/05/2009 401.9 ESSENTIAL HYPERTENSION 05/05/2009 599.0 URINARY TRACT INFECTION 05/05/2009 788.41 URINARY FREQUENCY 05/05/2009 788.63 URINARY URGENCY 05/05/2009 JAG NEWELL MD 401.9 ESSENTIAL HYPERTENSION 05/05/2009 JAG NEWELL MD 599.0 URINARY TRACT INFECTION 05/05/2009 JAG NEWELL MD 788.41 URINARY FREQUENCY 05/05/2009 JAG NEWELL MD 788.63 URINARY URGENCY 05/05/2009 401.9 ESSENTIAL HYPERTENSION 05/05/2009 599.0 URINARY TRACT INFECTION 05/05/2009 788.41 URINARY FREQUENCY 05/05/2009 788.63 URINARY URGENCY 05/05/2009 401.9 ESSENTIAL HYPERTENSION 05/05/2009 599.0 URINARY TRACT INFECTION 05/05/2009 788.41 URINARY FREQUENCY 05/05/2009 788.63 URINARY URGENCY 05/05/2009 401.9 ESSENTIAL HYPERTENSION 05/05/2009 599.0 URINARY TRACT INFECTION 05/05/2009 788.41 URINARY FREQUENCY 05/05/2009 788.63 URINARY URGENCY 05/05/2009 JAG NEWELL MD 401.9 ESSENTIAL HYPERTENSION 05/05/2009 JAG NEWELL MD 599.0 URINARY TRACT INFECTION 05/05/2009 JAG NEWELL MD 788.41 URINARY FREQUENCY 05/05/2009 JAG NEWELL MD 788.63 URINARY URGENCY 05/05/2009 401.9 ESSENTIAL HYPERTENSION 05/05/2009 599.0 URINARY TRACT INFECTION 05/05/2009 788.41 URINARY FREQUENCY 05/05/2009 788.63 URINARY URGENCY 05/05/2009 401.9 ESSENTIAL HYPERTENSION 05/05/2009 599.0 URINARY TRACT INFECTION 05/05/2009 788.41 URINARY FREQUENCY 05/05/2009 788.63 URINARY URGENCY 05/05/2009 401.9 ESSENTIAL HYPERTENSION 05/05/2009 599.0 URINARY TRACT INFECTION 05/05/2009 788.41 URINARY FREQUENCY 05/05/2009 788.63 URINARY URGENCY 05/05/2009 VERDUGO DO, VERO K 401.9 ESSENTIAL HYPERTENSION 05/05/2009 VERDUGO DO, VERO K 599.0 URINARY TRACT INFECTION 05/05/2009 VERDUGO DO, VERO K 788.41 URINARY FREQUENCY 05/05/2009 VERDUGO DO, VERO K 788.63 URINARY URGENCY 05/05/2009 JUSTICE DDS, HAILE D 401.9 ESSENTIAL HYPERTENSION 05/05/2009 JUSTICE DDS, HAILE D 599.0 URINARY TRACT INFECTION 05/05/2009 JUSTICE DDS, HAILE D 788.41 URINARY FREQUENCY 05/05/2009 JUSTICE DDS, HAILE D 788.63 URINARY URGENCY 05/05/2009 VERDUGO DO, VERO K 401.9 ESSENTIAL HYPERTENSION 05/05/2009 VERDUGO DO, VERO K 599.0 URINARY TRACT INFECTION 05/05/2009 VERDUGO DO, VERO K 788.41 URINARY FREQUENCY 05/05/2009 VERDUGO DO, VERO K 788.63 URINARY URGENCY 05/05/2009 REESE HEBERT APRN R 401.9 ESSENTIAL HYPERTENSION 05/05/2009 REESE HEBERT APRN R 599.0 URINARY TRACT INFECTION 05/05/2009 REESE HEBERT APRN R 788.41 URINARY FREQUENCY 05/05/2009 REESE HEBERT APRN R 788.63 URINARY URGENCY 05/05/2009 JUSTICE DDS, HAILE D 401.9 ESSENTIAL HYPERTENSION 05/05/2009 JUSTICE DDS, HAILE D 599.0 URINARY TRACT INFECTION 05/05/2009 JUSTICE DDS, HAILE D 788.41 URINARY FREQUENCY 05/05/2009 JUSTICE DDS, HAILE D 788.63 URINARY URGENCY 05/05/2009 VERDUGO DO, VERO K 401.9 ESSENTIAL HYPERTENSION 05/05/2009 VERDUGO DO, VERO K 599.0 URINARY TRACT INFECTION 05/05/2009 VERDUGO DO, VERO K 788.41 URINARY FREQUENCY 05/05/2009 VERDUGO DO, VERO K 788.63 URINARY URGENCY 05/05/2009 VERDUGO DO, VERO K 401.9 ESSENTIAL HYPERTENSION 05/05/2009 VERDUGO DO, VERO K 599.0 URINARY TRACT INFECTION 05/05/2009 VERDUGO DO, VERO K 788.41 URINARY FREQUENCY 05/05/2009 VERDUGO DO, VERO K 788.63 URINARY URGENCY 05/05/2009 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, REESE R 401.9 ESSENTIAL HYPERTENSION 05/05/2009 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, REESE R 599.0 URINARY TRACT INFECTION 05/05/2009 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, REESE R 788.41 URINARY FREQUENCY 05/05/2009 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, REESE R 788.63 URINARY URGENCY 05/05/2009 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, REESE R 401.9 ESSENTIAL HYPERTENSION 05/05/2009 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, REESE R 599.0 URINARY TRACT INFECTION 05/05/2009 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, REESE R 788.41 URINARY FREQUENCY 05/05/2009 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, REESE R 788.63 URINARY URGENCY 05/05/2009 VERDUGO DO, VERO K 401.9 ESSENTIAL HYPERTENSION 05/05/2009 VERDUGO DO, VERO K 599.0 URINARY TRACT INFECTION 05/05/2009 VERDUGO DO, VERO K 788.41 URINARY FREQUENCY 05/05/2009 VERDUGO DO, VERO K 788.63 URINARY URGENCY 05/05/2009 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, REESE R 401.9 ESSENTIAL HYPERTENSION 05/05/2009 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, REESE R 599.0 URINARY TRACT INFECTION 05/05/2009 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, REESE R 788.41 URINARY FREQUENCY 05/05/2009 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, REESE R 788.63 URINARY URGENCY 05/05/2009 VERDUGO DO, VERO K 401.9 ESSENTIAL HYPERTENSION 05/05/2009 VERDUGO DO, VERO K 599.0 URINARY TRACT INFECTION 05/05/2009 VERDUGO DO, VERO K 788.41 URINARY FREQUENCY 05/05/2009 VERDUGO DO, VERO K 788.63 URINARY URGENCY 05/05/2009 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, REESE R 401.9 ESSENTIAL HYPERTENSION 05/05/2009 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, REESE R 599.0 URINARY TRACT INFECTION 05/05/2009 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, REESE R 788.41 URINARY FREQUENCY 05/05/2009 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, REESE R 788.63 URINARY URGENCY 05/05/2009 VERDUGO DO, VERO K 401.9 ESSENTIAL HYPERTENSION 05/05/2009 VERDUGO DO, VERO K 599.0 URINARY TRACT INFECTION 05/05/2009 VERDUGO DO, VERO K 788.41 URINARY FREQUENCY 05/05/2009 VERDUGO DO, VERO K 788.63 URINARY URGENCY 05/05/2009 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, REESE R 401.9 ESSENTIAL HYPERTENSION 05/05/2009 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, REESE R 599.0 URINARY TRACT INFECTION 05/05/2009 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, REESE R 788.41 URINARY FREQUENCY 05/05/2009 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, REESE R 788.63 URINARY URGENCY 05/05/2009 DELLA AGUILAR MD 401.9 ESSENTIAL HYPERTENSION 05/05/2009 DELLA AGUILAR MD 599.0 URINARY TRACT INFECTION 05/05/2009 DELLA AGUILAR MD 788.41 URINARY FREQUENCY 05/05/2009 DELLA AGUILAR MD 788.63 URINARY URGENCY 01/14/2010 JAG NEWELL MD 46Matilde TONSILLITIS 01/14/2010 JAG NEWELL MD 719.41 joint pain, localized in the shoulder 01/14/2010 JAG NEWELL MD 786.2 cough 01/14/2010 JAG NWEELL MD 46Matilde TONSILLITIS 01/14/2010 JAG NEWELL MD 719.41 joint pain, localized in the shoulder 01/14/2010 JAG NEWELL MD 786.2 cough 01/14/2010 463 TONSILLITIS 01/14/2010 719.41 joint pain, localized in the shoulder 01/14/2010 786.2 cough 01/14/2010 JAG NEWELL MD 46Matilde TONSILLITIS 01/14/2010 JAG NEWELL MD 719.41 joint pain, localized in the shoulder 01/14/2010 JAG NEWELL MD 786.2 cough 01/14/2010 463 TONSILLITIS 01/14/2010 719.41 joint pain, localized in the shoulder 01/14/2010 786.2 cough 01/14/2010 463 TONSILLITIS 01/14/2010 719.41 joint pain, localized in the shoulder 01/14/2010 786.2 cough 01/14/2010 463 TONSILLITIS 01/14/2010 719.41 joint pain, localized in the shoulder 01/14/2010 786.2 cough 01/14/2010 JAG NEWELL MD 463 TONSILLITIS 01/14/2010 JAG NEWELL MD 719.41 joint pain, localized in the shoulder 01/14/2010 JAG NEWELL MD 786.2 cough 01/14/2010 463 TONSILLITIS 01/14/2010 719.41 joint pain, localized in the shoulder 01/14/2010 786.2 cough 01/14/2010 463 TONSILLITIS 01/14/2010 719.41 joint pain, localized in the shoulder 01/14/2010 786.2 cough 01/14/2010 463 TONSILLITIS 01/14/2010 719.41 joint pain, localized in the shoulder 01/14/2010 786.2 cough 01/14/2010 VERDUGO DO, VERO K 463 TONSILLITIS 01/14/2010 VERDUGO DO VERO K 719.41 joint pain, localized in the shoulder 01/14/2010 VERDUGO DO, VERO K 786.2 cough 01/14/2010 JUSTICE DDS, HAILE Rivero 463 TONSILLITIS 01/14/2010 JUSTICE DAVISS, HAILE Rivero 719.41 joint pain, localized in the shoulder 01/14/2010 JUSTICE DDS, HAILE Rivero 786.2 cough 01/14/2010 VERDUGO DO VERO K 463 TONSILLITIS 01/14/2010 VERDUGO DO VERO K 719.41 joint pain, localized in the shoulder 01/14/2010 VERDUGO DO, VERO K 786.2 cough 01/14/2010 REESE HEBERT APRN 463 TONSILLITIS 01/14/2010 REESE HEBERT APRN 719.41 joint pain, localized in the shoulder 01/14/2010 REESE HEBERT APRN 786.2 cough 01/14/2010 JUSTICE DAVISS, HAILE D 463 TONSILLITIS 01/14/2010 JUSTICE DAVISS, HAILE Rivero 719.41 joint pain, localized in the shoulder 01/14/2010 JUSTICE DAVISS, HAILE Rivero 786.2 cough 01/14/2010 VERDUGO DO, VERO K 463 TONSILLITIS 01/14/2010 VERDUGO DO, VERO K 719.41 joint pain, localized in the shoulder 01/14/2010 VERDUGO DO, VERO K 786.2 cough 01/14/2010 VERDUGO DO, VERO K 463 TONSILLITIS 01/14/2010 VERDUGO DO, VERO K 719.41 joint pain, localized in the shoulder 01/14/2010 VERDUGO DO, VERO K 786.2 cough 01/14/2010 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, REESE R 463 TONSILLITIS 01/14/2010 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, REESE R 719.41 joint pain, localized in the shoulder 01/14/2010 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, REESE R 786.2 cough 01/14/2010 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, REESE R 463 TONSILLITIS 01/14/2010 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, REESE R 719.41 joint pain, localized in the shoulder 01/14/2010 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, REESE R 786.2 cough 01/14/2010 VERDUGO DO, VERO K 463 TONSILLITIS 01/14/2010 VERDUGO DO, VERO K 719.41 joint pain, localized in the shoulder 01/14/2010 VERDUGO DO, VERO K 786.2 cough 01/14/2010 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, REESE R 463 TONSILLITIS 01/14/2010 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, REESE R 719.41 joint pain, localized in the shoulder 01/14/2010 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, REESE R 786.2 cough 01/14/2010 VERDUGO DO, VERO K 463 TONSILLITIS 01/14/2010 VERDUGO DO, VERO K 719.41 joint pain, localized in the shoulder 01/14/2010 VERDUGO DO, VERO K 786.2 cough 01/14/2010 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, REESE R 463 TONSILLITIS 01/14/2010 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, REESE R 719.41 joint pain, localized in the shoulder 01/14/2010 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, REESE R 786.2 cough 01/14/2010 VERDUGO DO, VERO K 463 TONSILLITIS 01/14/2010 VERDUGO DO, VERO K 719.41 joint pain, localized in the shoulder 01/14/2010 VERO VERDUGO DO 786.2 cough 01/14/2010 REESE HEBERT APRN R 463 TONSILLITIS 01/14/2010 EMILEE GALEAS, REESE Astudillo 719.41 joint pain, localized in the shoulder 01/14/2010 REESE HEBERT APRN 786.2 cough 01/14/2010 DELLA AGUILAR MD 463 TONSILLITIS 01/14/2010 DELLA AGUILAR MD 719.41 joint pain, localized in the shoulder 01/14/2010 DELLA AGUILAR MD 786.2 cough 03/23/2010 JAG NEWELL MD 278.00 OBESITY UNSPECIFIED 03/23/2010 JAG NEWELL MD 780.4 DIZZINESS AND VERTIGO 03/23/2010 JAG NEWELL MD 278.00 OBESITY UNSPECIFIED 03/23/2010 JAG NEWELL MD 780.4 DIZZINESS AND VERTIGO 03/23/2010 278.00 OBESITY UNSPECIFIED 03/23/2010 780.4 DIZZINESS AND VERTIGO 03/23/2010 JAG NEWELL MD 278.00 OBESITY UNSPECIFIED 03/23/2010 JAG NEWELL MD 780.4 DIZZINESS AND VERTIGO 03/23/2010 278.00 OBESITY UNSPECIFIED 03/23/2010 780.4 DIZZINESS AND VERTIGO 03/23/2010 278.00 OBESITY UNSPECIFIED 03/23/2010 780.4 DIZZINESS AND VERTIGO 03/23/2010 278.00 OBESITY UNSPECIFIED 03/23/2010 780.4 DIZZINESS AND VERTIGO 03/23/2010 JAG NEWELL MD 278.00 OBESITY UNSPECIFIED 03/23/2010 JAG NEWELL MD 780.4 DIZZINESS AND VERTIGO 03/23/2010 278.00 OBESITY UNSPECIFIED 03/23/2010 780.4 DIZZINESS AND VERTIGO 03/23/2010 278.00 OBESITY UNSPECIFIED 03/23/2010 780.4 DIZZINESS AND VERTIGO 03/23/2010 278.00 OBESITY UNSPECIFIED 03/23/2010 780.4 DIZZINESS AND VERTIGO 03/23/2010 VERO VERDUGO DO 278.00 OBESITY UNSPECIFIED 03/23/2010 VERO VERDUGO DO 780.4 DIZZINESS AND VERTIGO 03/23/2010 HAILE RENDON DDS 278.00 OBESITY UNSPECIFIED 03/23/2010 HAILE RENDON DDS 780.4 DIZZINESS AND VERTIGO 03/23/2010 VERDUGO DO, VERO K 278.00 OBESITY UNSPECIFIED 03/23/2010 VERDUGO DO, VERO K 780.4 DIZZINESS AND VERTIGO 03/23/2010 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, REESE R 278.00 OBESITY UNSPECIFIED 03/23/2010 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, REESE R 780.4 DIZZINESS AND VERTIGO 03/23/2010 JUSTICE DDS, HAILE D 278.00 OBESITY UNSPECIFIED 03/23/2010 JUSTICE DDS, HAILE D 780.4 DIZZINESS AND VERTIGO 03/23/2010 VERDUGO DO, VERO K 278.00 OBESITY UNSPECIFIED 03/23/2010 VERDUGO DO, VERO K 780.4 DIZZINESS AND VERTIGO 03/23/2010 VERDUGO DO, VERO K 278.00 OBESITY UNSPECIFIED 03/23/2010 VERDUGO DO, VERO K 780.4 DIZZINESS AND VERTIGO 03/23/2010 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, REESE R 278.00 OBESITY UNSPECIFIED 03/23/2010 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, REESE R 780.4 DIZZINESS AND VERTIGO 03/23/2010 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, REESE R 278.00 OBESITY UNSPECIFIED 03/23/2010 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, REESE R 780.4 DIZZINESS AND VERTIGO 03/23/2010 VERDUGO DO, VERO K 278.00 OBESITY UNSPECIFIED 03/23/2010 VERDUGO DO, VERO K 780.4 DIZZINESS AND VERTIGO 03/23/2010 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, REESE R 278.00 OBESITY UNSPECIFIED 03/23/2010 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, REESE R 780.4 DIZZINESS AND VERTIGO 03/23/2010 VERDUGO DO, VERO K 278.00 OBESITY UNSPECIFIED 03/23/2010 VERDUGO DO, VERO K 780.4 DIZZINESS AND VERTIGO 03/23/2010 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, REESE R 278.00 OBESITY UNSPECIFIED 03/23/2010 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, REESE R 780.4 DIZZINESS AND VERTIGO 03/23/2010 VERDUGO DO, VERO K 278.00 OBESITY UNSPECIFIED 03/23/2010 VERDUGO DO, VERO K 780.4 DIZZINESS AND VERTIGO 03/23/2010 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, REESE R 278.00 OBESITY UNSPECIFIED 03/23/2010 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, REESE R 780.4 DIZZINESS AND VERTIGO 03/23/2010 DELLA AGUILAR MD 278.00 OBESITY UNSPECIFIED 03/23/2010 DELLA AGUILAR MD 780.4 DIZZINESS AND VERTIGO 04/26/2010 REECE THIBODEAUX, JAG 388.70 EAR ACHE 04/26/2010 JAG NEWELL MD 388.70 EAR ACHE 04/26/2010 388.70 EAR ACHE 04/26/2010 REECE THIBODEAUX, JAG 388.70 EAR ACHE 04/26/2010 388.70 EAR ACHE 04/26/2010 388.70 EAR ACHE 04/26/2010 388.70 EAR ACHE 04/26/2010 JAG NEWELL MD 388.70 EAR ACHE 04/26/2010 388.70 EAR ACHE 04/26/2010 388.70 EAR ACHE 04/26/2010 388.70 EAR ACHE 04/26/2010 VERDUGO DO, VERO K 388.70 EAR ACHE 04/26/2010 HAILE RENDON DDS 388.70 EAR ACHE 04/26/2010 VERDUGO DO, VERO K 388.70 EAR ACHE 04/26/2010 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, REESE R 388.70 EAR ACHE 04/26/2010 HAILE RENDON DDS 388.70 EAR ACHE 04/26/2010 VERDUGO DO, VERO K 388.70 EAR ACHE 04/26/2010 VERDUGO DO, VERO K 388.70 EAR ACHE 04/26/2010 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, REESE R 388.70 EAR ACHE 04/26/2010 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, REESE R 388.70 EAR ACHE 04/26/2010 VERDUGO DO, VERO K 388.70 EAR ACHE 04/26/2010 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, REESE R 388.70 EAR ACHE 04/26/2010 VERDUGO DO, VERO K 388.70 EAR ACHE 04/26/2010 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, REESE R 388.70 EAR ACHE 04/26/2010 VERDUGO DO, VERO K 388.70 EAR ACHE 04/26/2010 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, REESE R 388.70 EAR ACHE 04/26/2010 DELLA AGUILAR MD 388.70 EAR ACHE 05/25/2010 Ot 034.0 05/25/2010 Ot 462 10/21/2011 JAG NEWELL MD 465.9 UPPER RESPIRATORY INFECTION 10/21/2011 JAG NEWELL MD 465.9 UPPER RESPIRATORY INFECTION 10/21/2011 465.9 UPPER RESPIRATORY INFECTION 10/21/2011 JAG NEWELL MD 465.9 UPPER RESPIRATORY INFECTION 10/21/2011 465.9 UPPER RESPIRATORY INFECTION 10/21/2011 465.9 UPPER RESPIRATORY INFECTION 10/21/2011 465.9 UPPER RESPIRATORY INFECTION 10/21/2011 JAG NEWELL MD 465.9 UPPER RESPIRATORY INFECTION 10/21/2011 465.9 UPPER RESPIRATORY INFECTION 10/21/2011 465.9 UPPER RESPIRATORY INFECTION 10/21/2011 465.9 UPPER RESPIRATORY INFECTION 10/21/2011 VERDUGO DO, VERO K 465.9 UPPER RESPIRATORY INFECTION 10/21/2011 JUSTICE DDS, HAILE D 465.9 UPPER RESPIRATORY INFECTION 10/21/2011 VERDUGO DO, VERO K 465.9 UPPER RESPIRATORY INFECTION 10/21/2011 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, REESE R 465.9 UPPER RESPIRATORY INFECTION 10/21/2011 JUSTICE DDS, HAILE D 465.9 UPPER RESPIRATORY INFECTION 10/21/2011 VERDUGO DO, VERO K 465.9 UPPER RESPIRATORY INFECTION 10/21/2011 VERDUGO DO, VERO K 465.9 UPPER RESPIRATORY INFECTION 10/21/2011 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, REESE R 465.9 UPPER RESPIRATORY INFECTION 10/21/2011 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, REESE R 465.9 UPPER RESPIRATORY INFECTION 10/21/2011 VERDUGO DO, VERO K 465.9 UPPER RESPIRATORY INFECTION 10/21/2011 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, REESE R 465.9 UPPER RESPIRATORY INFECTION 10/21/2011 VERDUGO DO, VERO K 465.9 UPPER RESPIRATORY INFECTION 10/21/2011 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, REESE R 465.9 UPPER RESPIRATORY INFECTION 10/21/2011 VERDUGO DO, VERO K 465.9 UPPER RESPIRATORY INFECTION 10/21/2011 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, REESE R 465.9 UPPER RESPIRATORY INFECTION 10/21/2011 DELLA AGUILAR MD 465.9 UPPER RESPIRATORY INFECTION 01/19/2012 JAG NEWELL MD 493.92 ASTHMA (ACUTE) EXACERBATION 01/19/2012 JAG NEWELL MD 493.92 ASTHMA (ACUTE) EXACERBATION 01/19/2012 493.92 ASTHMA (ACUTE ) EXACERBATION 01/19/2012 JAG NEWELL MD 493.92 ASTHMA (ACUTE) EXACERBATION 01/19/2012 493.92 ASTHMA (ACUTE ) EXACERBATION 01/19/2012 493.92 ASTHMA (ACUTE ) EXACERBATION 01/19/2012 493.92 ASTHMA (ACUTE ) EXACERBATION 01/19/2012 JAG NEWELL MD 493.92 ASTHMA (ACUTE) EXACERBATION 01/19/2012 493.92 ASTHMA (ACUTE ) EXACERBATION 01/19/2012 493.92 ASTHMA (ACUTE ) EXACERBATION 01/19/2012 493.92 ASTHMA (ACUTE ) EXACERBATION 01/19/2012 VERO VERDUGO DO 493.92 ASTHMA (ACUTE) EXACERBATION 01/19/2012 HAILE RENDON DDS 493.92 ASTHMA (ACUTE) EXACERBATION 01/19/2012 VERO VERDUGO DO 493.92 ASTHMA (ACUTE) EXACERBATION 01/19/2012 REESE HEBERT APRN 493.92 ASTHMA (ACUTE) EXACERBATION 01/19/2012 HAILE RENDON DDS 493.92 ASTHMA (ACUTE) EXACERBATION 01/19/2012 VERO VERDUGO DO 493.92 ASTHMA (ACUTE) EXACERBATION 01/19/2012 VERO VERDUGO DO 493.92 ASTHMA (ACUTE) EXACERBATION 01/19/2012 REESE HEBERT APRN 493.92 ASTHMA (ACUTE) EXACERBATION 01/19/2012 REESE HEBERT APRN 493.92 ASTHMA (ACUTE) EXACERBATION 01/19/2012 VERO VERDUGO DO 493.92 ASTHMA (ACUTE) EXACERBATION 01/19/2012 REESE HEBERT APRN 493.92 ASTHMA (ACUTE) EXACERBATION 01/19/2012 VERO VERDUGO DO 493.92 ASTHMA (ACUTE) EXACERBATION 01/19/2012 REESE HEBERT APRN 493.92 ASTHMA (ACUTE) EXACERBATION 01/19/2012 VERO VERDUGO DO 493.92 ASTHMA (ACUTE) EXACERBATION 01/19/2012 REESE HEBERT APRN 493.92 ASTHMA (ACUTE) EXACERBATION 01/19/2012 DELLA AGUILAR MD 493.92 ASTHMA (ACUTE) EXACERBATION 03/28/2012 Ot 041.02 BACTERIAL INFECTION DUE TO STREPTOCOCCUS 03/28/2012 Ot 250.00 DIAB NIKITA WO COMPL, TYPE II OR UNSPEC TY 03/28/2012 Ot 272.4 HYPERLIPIDEMIA NEC/NOS 03/28/2012 Ot 278.00 OBESITY, NOS 03/28/2012 Ot 300.00 ANXIETY STATE NOS 03/28/2012 Ot 401.9 HYPERTENSION NOS 03/28/2012 Ot 414.01 CORONARY ATHEROSCLEROSIS OF [place] CORON 03/28/2012 Ot 477.9 ALLERGIC RHINITIS NOS 03/28/2012 Ot 496 CHR AIRWAY OBSTRUCT NEC 03/28/2012 Ot 553.1 UMBILICAL HERNIA 03/28/2012 Ot 599.0 URIN TRACT INFECTION NOS 03/28/2012 Ot 716.90 ARTHROPATHY NOS-UNSPEC 03/28/2012 Ot V85.41 BODY MASS INDEX 40.0-44.9, ADULT 04/04/2012 JAG NEWELL MD 250.00 DIABETES MELLITUS TYPE 2 04/04/2012 JAG NEWELL MD 272.4 HYPERLIPIDEMIA 04/04/2012 JAG NEWELL MD 414.00 ASYMPTOMATIC CORONARY ARTERIOSCLEROSIS 04/04/2012 JAG NEWELL MD 250.00 DIABETES MELLITUS TYPE 2 - UNCOMPLICATED, CONTROLLED 04/04/2012 JAG NEWELL MD 272.4 HYPERLIPIDEMIA 04/04/2012 JAG NEWELL MD 414.00 ASYMPTOMATIC CORONARY ARTERIOSCLEROSIS 04/04/2012 250.00 DIABETES MELLITUS TYPE 2 - UNCOMPLICATED, CONTROLLED 04/04/2012 272.4 HYPERLIPIDEMIA 04/04/2012 414.00 ASYMPTOMATIC CORONARY ARTERIOSCLEROSIS 04/04/2012 JAG NEWELL MD 250.00 DIABETES MELLITUS TYPE 2 - UNCOMPLICATED, CONTROLLED 04/04/2012 AJG NEWELL MD 272.4 HYPERLIPIDEMIA 04/04/2012 JAG NEWELL MD 414.00 ASYMPTOMATIC CORONARY ARTERIOSCLEROSIS 04/04/2012 250.00 DIABETES MELLITUS TYPE 2 - UNCOMPLICATED, CONTROLLED 04/04/2012 272.4 HYPERLIPIDEMIA 04/04/2012 414.00 ASYMPTOMATIC CORONARY ARTERIOSCLEROSIS 04/04/2012 250.00 DIABETES MELLITUS TYPE 2 - UNCOMPLICATED, CONTROLLED 04/04/2012 272.4 HYPERLIPIDEMIA 04/04/2012 414.00 ASYMPTOMATIC CORONARY ARTERIOSCLEROSIS 04/04/2012 250.00 DIABETES MELLITUS TYPE 2 - UNCOMPLICATED, CONTROLLED 04/04/2012 272.4 HYPERLIPIDEMIA 04/04/2012 414.00 ASYMPTOMATIC CORONARY ARTERIOSCLEROSIS 04/04/2012 JAG NEWELL MD 250.00 DIABETES MELLITUS TYPE 2 - UNCOMPLICATED, CONTROLLED 04/04/2012 JAG NEWELL MD 272.4 HYPERLIPIDEMIA 04/04/2012 JAG NEWELL MD 414.00 ASYMPTOMATIC CORONARY ARTERIOSCLEROSIS 04/04/2012 250.00 DIABETES MELLITUS TYPE 2 - UNCOMPLICATED, CONTROLLED 04/04/2012 272.4 HYPERLIPIDEMIA 04/04/2012 414.00 ASYMPTOMATIC CORONARY ARTERIOSCLEROSIS 04/04/2012 250.00 DIABETES MELLITUS TYPE 2 - UNCOMPLICATED, CONTROLLED 04/04/2012 272.4 HYPERLIPIDEMIA 04/04/2012 414.00 ASYMPTOMATIC CORONARY ARTERIOSCLEROSIS 04/04/2012 250.00 DIABETES MELLITUS TYPE 2 - UNCOMPLICATED, CONTROLLED 04/04/2012 272.4 HYPERLIPIDEMIA 04/04/2012 414.00 ASYMPTOMATIC CORONARY ARTERIOSCLEROSIS 04/04/2012 VERDUGO DO, VERO K 250.00 DIABETES MELLITUS TYPE 2 - UNCOMPLICATED, CONTROLLED 04/04/2012 VERDUGO DO, VERO K 272.4 HYPERLIPIDEMIA 04/04/2012 VERDUGO DO, VERO K 414.00 ASYMPTOMATIC CORONARY ARTERIOSCLEROSIS 04/04/2012 JUSTICE DDS, HAILE D 250.00 DIABETES MELLITUS TYPE 2 - UNCOMPLICATED, CONTROLLED 04/04/2012 JUSTICE DDS, HAILE D 272.4 HYPERLIPIDEMIA 04/04/2012 JUSTICE DDS, HAILE D 414.00 ASYMPTOMATIC CORONARY ARTERIOSCLEROSIS 04/04/2012 VERDUGO DO, VERO K 250.00 DIABETES MELLITUS TYPE 2 - UNCOMPLICATED, CONTROLLED 04/04/2012 VERDUGO DO, VERO K 272.4 HYPERLIPIDEMIA 04/04/2012 VERDUGO DO, VERO K 414.00 ASYMPTOMATIC CORONARY ARTERIOSCLEROSIS 04/04/2012 HEBERT ADAL REESE R 250.00 DIABETES MELLITUS TYPE 2 - UNCOMPLICATED, CONTROLLED 04/04/2012 HEBERT REESE GALEAS R 272.4 HYPERLIPIDEMIA 04/04/2012 HEBERT REESE GALEAS R 414.00 ASYMPTOMATIC CORONARY ARTERIOSCLEROSIS 04/04/2012 JUSTICE DDS, HAILE D 250.00 DIABETES MELLITUS TYPE 2 - UNCOMPLICATED, CONTROLLED 04/04/2012 JUSTICE DDS, HAILE D 272.4 HYPERLIPIDEMIA 04/04/2012 JUSTICE DDS, HAILE D 414.00 ASYMPTOMATIC CORONARY ARTERIOSCLEROSIS 04/04/2012 VERDUGO DO, VERO K 250.00 DIABETES MELLITUS TYPE 2 - UNCOMPLICATED, CONTROLLED 04/04/2012 VERDUGO DO, VERO K 272.4 HYPERLIPIDEMIA 04/04/2012 VERDUGO DO, VERO K 414.00 ASYMPTOMATIC CORONARY ARTERIOSCLEROSIS 04/04/2012 VERDUGO DO, VERO K 250.00 DIABETES MELLITUS TYPE 2 - UNCOMPLICATED, CONTROLLED 04/04/2012 VERDUGO DO, VERO K 272.4 HYPERLIPIDEMIA 04/04/2012 VERDUGO DO, VERO K 414.00 ASYMPTOMATIC CORONARY ARTERIOSCLEROSIS 04/04/2012 HEBERTTRISTIN GALEAS REESE R 250.00 DIABETES MELLITUS TYPE 2 - UNCOMPLICATED, CONTROLLED 04/04/2012 REESE HEBERT APRN R 272.4 HYPERLIPIDEMIA 04/04/2012 HEBERT ADAL REESE R 414.00 ASYMPTOMATIC CORONARY ARTERIOSCLEROSIS 04/04/2012 HEBERT ADAL REESE R 250.00 DIABETES MELLITUS TYPE 2 - UNCOMPLICATED, CONTROLLED 04/04/2012 HEBERT REESE GALEAS R 272.4 HYPERLIPIDEMIA 04/04/2012 HEBERTTRISTIN GALEAS REESE R 414.00 ASYMPTOMATIC CORONARY ARTERIOSCLEROSIS 04/04/2012 VERDUGO DO, VERO K 250.00 DIABETES MELLITUS TYPE 2 - UNCOMPLICATED, CONTROLLED 04/04/2012 VERDUGO DO, VERO K 272.4 HYPERLIPIDEMIA 04/04/2012 VERDUGO DO, VERO K 414.00 ASYMPTOMATIC CORONARY ARTERIOSCLEROSIS 04/04/2012 HEBERT ADAL REESE R 250.00 DIABETES MELLITUS TYPE 2 - UNCOMPLICATED, CONTROLLED 04/04/2012 HEBERT ADAL REESE R 272.4 HYPERLIPIDEMIA 04/04/2012 HEBERT ADAL REESE R 414.00 ASYMPTOMATIC CORONARY ARTERIOSCLEROSIS 04/04/2012 VERDUGO DO, VERO K 250.00 DIABETES MELLITUS TYPE 2 - UNCOMPLICATED, CONTROLLED 04/04/2012 VERDUGO DO, VERO K 272.4 HYPERLIPIDEMIA 04/04/2012 VERDUGO DO, VERO K 414.00 ASYMPTOMATIC CORONARY ARTERIOSCLEROSIS 04/04/2012 HEBERT ADAL ERESE R 250.00 DIABETES MELLITUS TYPE 2 - UNCOMPLICATED, CONTROLLED 04/04/2012 HEBERT REESE GALEAS R 272.4 HYPERLIPIDEMIA 04/04/2012 HEBERT REESE GALEAS R 414.00 ASYMPTOMATIC CORONARY ARTERIOSCLEROSIS 04/04/2012 VERDUGO DO, VERO K 250.00 DIABETES MELLITUS TYPE 2 - UNCOMPLICATED, CONTROLLED 04/04/2012 VERDUGO DO, VERO K 272.4 HYPERLIPIDEMIA 04/04/2012 VERDUGO DO, VERO K 414.00 ASYMPTOMATIC CORONARY ARTERIOSCLEROSIS 04/04/2012 HEBERT ADAL REESE R 250.00 DIABETES MELLITUS TYPE 2 - UNCOMPLICATED, CONTROLLED 04/04/2012 HEBERT REESE GALEAS R 272.4 HYPERLIPIDEMIA 04/04/2012 HEBERTREESE CROW APRN R 414.00 ASYMPTOMATIC CORONARY ARTERIOSCLEROSIS 04/04/2012 DELLA AGUILAR MD 250.00 DIABETES MELLITUS TYPE 2 - UNCOMPLICATED, CONTROLLED 04/04/2012 DELLA AGUILAR MD 272.4 HYPERLIPIDEMIA 04/04/2012 DELLA AGUILAR MD 414.00 ASYMPTOMATIC CORONARY ARTERIOSCLEROSIS 05/11/2012 JAG NEWELL MD 786.09 difficulty breathing (dyspnea) 05/11/2012 JAG NEWELL MD 787.91 diarrhea 05/11/2012 JAG NEWELL MD 786.09 difficulty breathing (dyspnea) 05/11/2012 JAG NEWELL MD 787.91 diarrhea 05/11/2012 786.09 difficulty breathing (dyspnea) 05/11/2012 787.91 diarrhea 05/11/2012 JAG NEWELL MD 786.09 difficulty breathing (dyspnea) 05/11/2012 JAG NEWELL MD 787.91 diarrhea 05/11/2012 786.09 difficulty breathing (dyspnea) 05/11/2012 787.91 diarrhea 05/11/2012 786.09 difficulty breathing (dyspnea) 05/11/2012 787.91 diarrhea 05/11/2012 786.09 difficulty breathing (dyspnea) 05/11/2012 787.91 diarrhea 05/11/2012 JAG NEWELL MD 786.09 difficulty breathing (dyspnea) 05/11/2012 JAG NEWELL MD 787.91 diarrhea 05/11/2012 786.09 difficulty breathing (dyspnea) 05/11/2012 787.91 diarrhea 05/11/2012 786.09 difficulty breathing (dyspnea) 05/11/2012 787.91 diarrhea 05/11/2012 786.09 difficulty breathing (dyspnea) 05/11/2012 787.91 diarrhea 05/11/2012 VERDUGO DOKARENA K 786.09 difficulty breathing (dyspnea) 05/11/2012 VERDUGO DO VERO K 787.91 diarrhea 05/11/2012 JUSTICE DDS, HAILE Rivero 786.09 difficulty breathing (dyspnea) 05/11/2012 JUSTICE DAVISS, HAILE Rivero 787.91 diarrhea 05/11/2012 VERDUGO DO, VERO K 786.09 difficulty breathing (dyspnea) 05/11/2012 VERDUGO DO VERO K 787.91 diarrhea 05/11/2012 REESE HEBERT APRN 786.09 difficulty breathing (dyspnea) 05/11/2012 REESE HEBERT APRN 787.91 diarrhea 05/11/2012 JUSTICE DDS, HAILE Rivero 786.09 difficulty breathing (dyspnea) 05/11/2012 JUSTICE DAVISS, HAILE Rivero 787.91 diarrhea 05/11/2012 VERDUGO DOKARENA K 786.09 difficulty breathing (dyspnea) 05/11/2012 VERDUGO DOKARENA K 787.91 diarrhea 05/11/2012 VERDUGO DO VEOR K 786.09 difficulty breathing (dyspnea) 05/11/2012 VERDUGO DO VERO K 787.91 diarrhea 05/11/2012 REESE HEBERT APRN 786.09 difficulty breathing (dyspnea) 05/11/2012 REESE HEBERT APRN 787.91 diarrhea 05/11/2012 EMILEE MCCOLLUMREESE Paez R 786.09 difficulty breathing (dyspnea) 05/11/2012 EMILEE MCCOLLUMREESE Paez R 787.91 diarrhea 05/11/2012 VERDUGO DO, VERO K 786.09 difficulty breathing (dyspnea) 05/11/2012 VERDUGO DO, VERO K 787.91 diarrhea 05/11/2012 EMILEE MCCOLLUMREESE Paez R 786.09 difficulty breathing (dyspnea) 05/11/2012 EMILEE MCCOLLUMREESE Paez R 787.91 diarrhea 05/11/2012 VERDUGO DO, VERO K 786.09 difficulty breathing (dyspnea) 05/11/2012 VERDUGO DO, VERO K 787.91 diarrhea 05/11/2012 EMILEE MCCOLLUMREESE Paez R 786.09 difficulty breathing (dyspnea) 05/11/2012 EMILEE MCCOLLUMREESE Paez R 787.91 diarrhea 05/11/2012 VERDUGO DO, VERO K 786.09 difficulty breathing (dyspnea) 05/11/2012 VERDUGO DO, VERO K 787.91 diarrhea 05/11/2012 EMILEE MCCOLLUMREESE Paez R 786.09 difficulty breathing (dyspnea) 05/11/2012 EMILEE MCCOLLUMREESE Paez R 787.91 diarrhea 05/11/2012 DELLA AGUILAR MD 786.09 difficulty breathing (dyspnea) 05/11/2012 DELLA AGUILAR MD 787.91 diarrhea 08/09/2012 Ot 250.00 DIAB NIKITA WO COMPL, TYPE II OR UNSPEC TY 08/09/2012 Ot 272.4 HYPERLIPIDEMIA NEC/NOS 08/09/2012 Ot 278.00 OBESITY, NOS 08/09/2012 Ot 401.9 HYPERTENSION NOS 08/09/2012 Ot 414.01 CORONARY ATHEROSCLEROSIS OF [place] CORON 08/09/2012 Ot 496 CHR AIRWAY OBSTRUCT NEC 08/09/2012 Ot 716.90 ARTHROPATHY NOS-UNSPEC 08/09/2012 Ot V12.04 PERSONAL HIST OF METHICILLIN RESISTANT S 08/09/2012 Ot V45.82 PERCUTANEOUS TRANSLUM CORON ANGIOPLASTY 08/09/2012 Ot V85.42 BODY MASS INDEX 45.0-49.9, ADULT 09/13/2012 REECE THIBODEAUX, JAG 680.9 FURUNCLE 09/13/2012 JAG NEWELL MD 680.9 FURUNCLE 09/13/2012 680.9 FURUNCLE 09/13/2012 JAG NEWELL MD 680.9 FURUNCLE 09/13/2012 680.9 FURUNCLE 09/13/2012 680.9 FURUNCLE 09/13/2012 680.9 FURUNCLE 09/13/2012 JAG NEWELL MD 680.9 FURUNCLE 09/13/2012 680.9 FURUNCLE 09/13/2012 680.9 FURUNCLE 09/13/2012 680.9 FURUNCLE 09/13/2012 VERDUGO DO, VERO K 680.9 FURUNCLE 09/13/2012 JUSTICE NAJERA, HAILE Rivero 680.9 FURUNCLE 09/13/2012 VERDUGO DO, VERO K 680.9 FURUNCLE 09/13/2012 REESE HEBERT APRN R 680.9 FURUNCLE 09/13/2012 JUSTICE NAJERA, HAILE Rivero 680.9 FURUNCLE 09/13/2012 VERDUGO DO, VERO K 680.9 FURUNCLE 09/13/2012 VERDUGO DO, VERO K 680.9 FURUNCLE 09/13/2012 REESE HEBERT APRN R 680.9 FURUNCLE 09/13/2012 REESE HEBERT APRN R 680.9 FURUNCLE 09/13/2012 VERDUGO DO, VERO K 680.9 FURUNCLE 09/13/2012 REESE HEBERT APRN R 680.9 FURUNCLE 09/13/2012 VERDUGO DO, VERO K 680.9 FURUNCLE 09/13/2012 REESE HEBERT APRN 680.9 FURUNCLE 09/13/2012 VERDUGO DO, VERO K 680.9 FURUNCLE 09/13/2012 REESE HEBERT APRN 680.9 FURUNCLE 09/13/2012 DELLA AGUILAR MD 680.9 FURUNCLE 11/14/2012 JAG NEWELL MD 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 11/14/2012 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 11/14/2012 JAG NEWELL MD 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 11/14/2012 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 11/14/2012 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 11/14/2012 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 11/14/2012 ERECE THIBODEAUX, JAG 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 11/14/2012 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 11/14/2012 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 11/14/2012 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 11/14/2012 VERO VERDUGO DO K 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 11/14/2012 JUSTICE DAVISS, HAILE Rivero 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 11/14/2012 VERO VERDUGO DO K 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 11/14/2012 REESE HEBERT APRN 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 11/14/2012 JUSTICE NAJERA, HAILE Rivero 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 11/14/2012 VERO VERDUGO DO K 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 11/14/2012 VERO VERDUGO DO K 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 11/14/2012 REESE HEBERT APRN 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 11/14/2012 REESE HEBERT APRN 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 11/14/2012 VERO VERDUGO DO K 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3 SKIN ABSCESS OF THE RIGHT AXILLA 12/18/2012 682.3 SKIN ABSCESS OF THE RIGHT AXILLA 12/18/2012 JAG NEWELL MD 682.3 SKIN ABSCESS OF THE RIGHT AXILLA 12/18/2012 682.3 SKIN ABSCESS OF THE RIGHT AXILLA 12/18/2012 682.3 SKIN ABSCESS OF THE RIGHT AXILLA 12/18/2012 682.3 SKIN ABSCESS OF THE RIGHT AXILLA 12/18/2012 VERO VERDUGO DO 682.3 SKIN ABSCESS OF THE RIGHT AXILLA 12/18/2012 JUSTICE NAJERA, HAILE Rivero 682.3 SKIN ABSCESS OF THE RIGHT AXILLA 12/18/2012 VERO VERDUGO DO K 682.3 SKIN ABSCESS OF THE RIGHT AXILLA 12/18/2012 REESE HEBERT APRN 682.3 SKIN ABSCESS OF THE RIGHT AXILLA 12/18/2012 JUSTICE NAJERA, HAILE Rivero 682.3 SKIN ABSCESS OF THE RIGHT AXILLA 12/18/2012 VERO VERDUGO DO K 682.3 SKIN ABSCESS OF THE RIGHT AXILLA 12/18/2012 VERO VERDUGO DO K 682.3 SKIN ABSCESS OF THE RIGHT AXILLA 12/18/2012 REESE HEBERT APRN 682.3 SKIN ABSCESS OF THE RIGHT AXILLA 12/18/2012 REESE HEBERT APRN 682.3 SKIN ABSCESS OF THE RIGHT AXILLA 12/18/2012 VERO VERDUGO DO K 682.3 SKIN ABSCESS OF THE RIGHT AXILLA 12/18/2012 REESE HEBERT APRN 682.3 SKIN ABSCESS OF THE RIGHT AXILLA 12/18/2012 VERO VERDUGO DO 682.3 SKIN ABSCESS OF THE RIGHT AXILLA 12/18/2012 REESE HEBERT APRN 682.3 SKIN ABSCESS OF THE RIGHT AXILLA 12/18/2012 VERO VERDUGO DO 682.3 SKIN ABSCESS OF THE RIGHT AXILLA 12/18/2012 REESE HEBERT APRN 682.3 SKIN ABSCESS OF THE RIGHT AXILLA 12/18/2012 DELLA AGUILAR MD 682.3 SKIN ABSCESS OF THE RIGHT AXILLA 01/09/2013 782.7 Ecchymosis Spontaneous 01/09/2013 782.7 Ecchymosis Spontaneous 01/09/2013 JAG NEWELL MD 782.7 Ecchymosis Spontaneous 01/09/2013 782.7 Ecchymosis Spontaneous 01/09/2013 782.7 Ecchymosis Spontaneous 01/09/2013 782.7 Ecchymosis Spontaneous 01/09/2013 VERO VERDUGO DO K 782.7 Ecchymosis Spontaneous 01/09/2013 HAILE RENDON DDS 782.7 Ecchymosis Spontaneous 01/09/2013 KARTIK GREY, VERO K 782.7 Ecchymosis Spontaneous 01/09/2013 REESE HEBERT APRN 782.7 Ecchymosis Spontaneous 01/09/2013 HAILE RENDON DDS 782.7 Ecchymosis Spontaneous 01/09/2013 VERO VERDUGO DO K 782.7 Ecchymosis Spontaneous 01/09/2013 KARTIK GREY, VERO K 782.7 Ecchymosis Spontaneous 01/09/2013 REESE HEBERT APRN 782.7 Ecchymosis Spontaneous 01/09/2013 REESE HEBERT APRN 782.7 Ecchymosis Spontaneous 01/09/2013 VERO VERDUGO DO K 782.7 Ecchymosis Spontaneous 01/09/2013 REESE HEBERT APRN 782.7 Ecchymosis Spontaneous 01/09/2013 VERO VERDUGO DO 782.7 Ecchymosis Spontaneous 01/09/2013 REESE HEBERT APRN 782.7 Ecchymosis Spontaneous 01/09/2013 VERO VERDUGO DO 782.7 Ecchymosis Spontaneous 01/09/2013 REESE HEBERT APRN 782.7 Ecchymosis Spontaneous 01/09/2013 DELLA AGUILAR MD 782.7 Ecchymosis Spontaneous 02/01/2013 Ot 327.23 OBSTRUCTIVE SLEEP APNEA (ADULT) (PEDIATR 03/04/2013 GIACOMO LINDO MD Ot 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 03/04/2013 GIACOMO LINDO MD Ot 842.10 SPRAIN OF HAND NOS 03/04/2013 GIACOMO LINDO MD Ot 959.01 HEAD INJURY, NOS 03/04/2013 GIACOMO LINDO MD Ot E000.8 OTHER EXTERNAL CAUSE STATUS 03/04/2013 GIACOMO LINDO MD Ot E849.0 ACCIDENT IN HOME 03/04/2013 GIACOMO LINDO MD Ot E888.9 FALL NOS 03/12/2013 794.09 ABNORMAL BRAIN SCAN 03/12/2013 794.09 ABNORMAL BRAIN SCAN 03/12/2013 794.09 ABNORMAL BRAIN SCAN 03/12/2013 VERO VERDUGO DO 794.09 ABNORMAL BRAIN SCAN 03/12/2013 HAILE RENDON DDS 794.09 ABNORMAL BRAIN SCAN 03/12/2013 VERO VERDUGO DO 794.09 ABNORMAL BRAIN SCAN 03/12/2013 REESE HEBERT APRN 794.09 ABNORMAL BRAIN SCAN 03/12/2013 HAILE RENDON DDS 794.09 ABNORMAL BRAIN SCAN 03/12/2013 VERO VERDUGO DO 794.09 ABNORMAL BRAIN SCAN 03/12/2013 VERO VERDUGO DO 794.09 ABNORMAL BRAIN SCAN 03/12/2013 REESE HEBERT APRN 794.09 ABNORMAL BRAIN SCAN 03/12/2013 REESE HEBERT APRN 794.09 ABNORMAL BRAIN SCAN 03/12/2013 VERO VERDUGO DO 794.09 ABNORMAL BRAIN SCAN 03/12/2013 REESE HEBERT APRN 794.09 ABNORMAL BRAIN SCAN 03/12/2013 VERO VERDUGO DO 794.09 ABNORMAL BRAIN SCAN 03/12/2013 REESE HEBERT APRN 794.09 ABNORMAL BRAIN SCAN 03/12/2013 VERO VERDUGO DO 794.09 ABNORMAL BRAIN SCAN 03/12/2013 REESE HEBERT APRN 794.09 ABNORMAL BRAIN SCAN 03/12/2013 DELLA AGUILAR MD 794.09 ABNORMAL BRAIN SCAN 04/17/2013 JENIFER NELSON MD Ot 240.9 GOITER NOS 04/17/2013 JENIFER NELSON MD Ot 250.00 DIAB NIKITA WO COMPL, TYPE II OR UNSPEC TY 04/17/2013 JENIFER NELSON MD Ot 272.4 HYPERLIPIDEMIA NEC/NOS 04/17/2013 JENIFER NELSON MD Ot 278.00 OBESITY, NOS 04/17/2013 JENIFER NELSON MD Ot 327.23 OBSTRUCTIVE SLEEP APNEA (ADULT) (PEDIATR 04/17/2013 JENIFER NELSON MD Ot 401.9 HYPERTENSION NOS 04/17/2013 JENIFER NELSON MD Ot 414.01 CORONARY ATHEROSCLEROSIS OF [place] CORON 04/17/2013 JENIFER NELSON MD Ot 496 CHR AIRWAY OBSTRUCT NEC 04/17/2013 JENIFER NELSON MD Ot 535.50 UNSP GASTRITIS GASTRODUODENITIS W/O ME 04/17/2013 JENIFER NELSON MD Ot 716.90 ARTHROPATHY NOS-UNSPEC 04/17/2013 JENIFER NELSON MD Ot 786.50 CHEST PAIN NOS 04/17/2013 JENIFER NELSON MD Ot 789.06 ABDOMINAL PAIN, EPIGASTRIC 04/17/2013 JENIFER NELSON MD Ot V45.82 PERCUTANEOUS TRANSLUM CORON ANGIOPLASTY 04/17/2013 JENIFER NELSON MD Ot V58.63 LONG-TERM(CURRENT)USE OF ANTIPLATELET/AN 04/17/2013 JENIFER NELSON MD Ot V58.66 LONG-TERM (CURRENT) USE OF ASPIRIN 04/17/2013 JENIFER NELSON MD, Ot V58.69 OT MED,LT,CURRENT USE 04/17/2013 JENIFER NELSON MD Ot V85.42 BODY MASS INDEX 45.0-49.9, ADULT 05/07/2013 241.1 NONTOXIC MULTINODULAR GOITER 05/07/2013 241.1 NONTOXIC MULTINODULAR GOITER 05/07/2013 VERO VERDUGO DO 241.1 NONTOXIC MULTINODULAR GOITER 05/07/2013 HIALE RENDON DDS 241.1 NONTOXIC MULTINODULAR GOITER 05/07/2013 VERO VERDUGO DO 241.1 NONTOXIC MULTINODULAR GOITER 05/07/2013 REESE HEBERT APRN 241.1 NONTOXIC MULTINODULAR GOITER 05/07/2013 HAILE RENDON DDS 241.1 NONTOXIC MULTINODULAR GOITER 05/07/2013 VERO VERDUGO DO 241.1 NONTOXIC MULTINODULAR GOITER 05/07/2013 VERO VERDUGO DO 241.1 NONTOXIC MULTINODULAR GOITER 05/07/2013 HEBERTREESE Moya APRN R 241.1 NONTOXIC MULTINODULAR GOITER 05/07/2013 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, 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 R 241.1 NONTOXIC MULTINODULAR GOITER 05/07/2013 VERDUGO , VERO K 241.1 NONTOXIC MULTINODULAR GOITER 05/07/2013 HEBERT ADAL, REESE R 241.1 NONTOXIC MULTINODULAR GOITER 05/07/2013 KARTIK GREY VERO K 241.1 NONTOXIC MULTINODULAR GOITER 05/07/2013 HEBERT REESE GALEAS R 241.1 NONTOXIC MULTINODULAR GOITER 05/07/2013 VERDUGO DO VERO K 241.1 NONTOXIC MULTINODULAR GOITER 05/07/2013 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REESE Paez R 241.1 NONTOXIC MULTINODULAR GOITER 05/07/2013 DELLA AGUILAR MD 241.1 NONTOXIC MULTINODULAR GOITER 09/02/2013 CHRISTOPHER THIBODEAUX, GARCÍA T Ot 530.81 ESOPHAGEAL REFLUX 09/02/2013 CHRISTOPHER THIBODEAUX, GARCÍA Lorenzana Ot 787.1 HEARTBURN 10/28/2013 KARTIK GREY VERO K 553.1 UMBILICAL HERNIA 10/28/2013 HEBERT REESE GALEAS R 553.1 UMBILICAL HERNIA 10/28/2013 JUSTICE NAJERA, HAILE Rivero 553.1 UMBILICAL HERNIA 10/28/2013 VERDUGO DO VERO K 553.1 UMBILICAL HERNIA 10/28/2013 KARTIK GREY VERO K 553.1 UMBILICAL HERNIA 10/28/2013 HEBERTREESE CROW APRN R 553.1 UMBILICAL HERNIA 10/28/2013 HEBERT REESE GALEAS R 553.1 UMBILICAL HERNIA 10/28/2013 KARTIK GREY VERO K 553.1 UMBILICAL HERNIA 10/28/2013 HEBERT ADAL REESE R 553.1 UMBILICAL HERNIA 10/28/2013 KARTIK GREY VERO K 553.1 UMBILICAL HERNIA 10/28/2013 HEBERT REESE GALEAS R 553.1 UMBILICAL HERNIA 10/28/2013 KARTIK GREY VERO K 553.1 UMBILICAL HERNIA 10/28/2013 HEBERTREESE CROW APRN R 553.1 UMBILICAL HERNIA 10/28/2013 DELLA AGUILAR MD 553.1 UMBILICAL HERNIA 01/14/2014 KARTIK GREY VERO K Ot 250.00 DIAB NIKITA WO COMPL, TYPE II OR UNSPEC TY 01/14/2014 KARTIK GREY VERO K Ot 272.4 HYPERLIPIDEMIA NEC/NOS 01/14/2014 KARTIK GREY VERO K Ot 278.00 OBESITY, NOS 01/14/2014 KARTIK GREY VERO K Ot 327.23 OBSTRUCTIVE SLEEP APNEA (ADULT) (PEDIATR 01/14/2014 KARTIK GREY VERO K Ot 401.9 HYPERTENSION NOS 01/14/2014 KARTIK GREY VERO K Ot 496 CHR AIRWAY OBSTRUCT NEC 01/14/2014 KARTIK GREY VERO K Ot 530.81 ESOPHAGEAL REFLUX 01/14/2014 KARTIK GREY VERO K Ot 716.90 ARTHROPATHY NOS-UNSPEC 01/14/2014 KARTIK GREY VERO K Ot 786.09 RESPIRATORY ABNORM NEC 01/14/2014 KARTIK GREY VERO K Ot 786.59 CHEST PAIN NEC 01/14/2014 KARTIK GREY VERO Connie Ot V17.3 FAM HX-ISCHEM HEART DIS 01/14/2014 KARTIK GREY EVRO K Ot V45.82 PERCUTANEOUS TRANSLUM CORON ANGIOPLASTY 01/14/2014 KARTIK GREY VERO K Ot V85.42 BODY MASS INDEX 45.0-49.9, ADULT 01/29/2014 JUSTICE DAVISS, HAILE Rivero 789.07 ABDOMINAL PAIN GENERALIZED 01/29/2014 VERO VERDUGO DO 789.07 ABDOMINAL PAIN GENERALIZED 01/29/2014 KAREN VERDUGO DOA Connie 789.07 ABDOMINAL PAIN GENERALIZED 01/29/2014 REESE HEBERT APRN 789.07 ABDOMINAL PAIN GENERALIZED 01/29/2014 REESE HEBERT APRN 789.07 ABDOMINAL PAIN GENERALIZED 01/29/2014 VERO VERDUGO DO 789.07 ABDOMINAL PAIN GENERALIZED 01/29/2014 REESE HEBERT APRN 789.07 ABDOMINAL PAIN GENERALIZED 01/29/2014 VERO VERDUGO DO 789.07 ABDOMINAL PAIN GENERALIZED 01/29/2014 REESE HEBERT APRN 789.07 ABDOMINAL PAIN GENERALIZED 01/29/2014 VERO VERDUGO DO 789.07 ABDOMINAL PAIN GENERALIZED 01/29/2014 REESE HEBERT APRN 789.07 ABDOMINAL PAIN GENERALIZED 01/29/2014 DELLA AGUILAR MD 789.07 ABDOMINAL PAIN GENERALIZED 05/29/2014 JOHNIE TAYLOR MD Ot 553.1 UMBILICAL HERNIA 05/29/2014 JOHNIE TAYLOR MD Ot V58.69 OTH MED,LT,CURRENT USE 06/15/2014 GARCÍA WHITE MD Ot 250.00 DIAB NIKITA WO COMPL, TYPE II OR UNSPEC TY 06/15/2014 GARCÍA WHITE MD Ot 401.9 HYPERTENSION NOS 06/15/2014 GARCÍA WHITE MD Ot 414.01 CORONARY ATHEROSCLEROSIS OF [place] CORON 06/15/2014 GARCÍA WHITE MD Ot 486 PNEUMONIA, ORGANISM NOS 06/15/2014 GARCÍA WHITE MD Ot 496 CHR AIRWAY OBSTRUCT NEC 06/15/2014 GARCÍA WHITE MD Ot 530.81 ESOPHAGEAL REFLUX 06/15/2014 GARCÍA WHITE MD Ot 682.2 CELLULITIS OF TRUNK 06/15/2014 GARCÍA WHITE MD Ot 696.1 OTHER PSORIASIS 06/15/2014 GARCÍA WHITE MD Ot 714.0 RHEUMATOID ARTHRITIS 06/15/2014 GARCÍA WHITE MD Ot 780.57 UNSPECIFIED SLEEP APNEA 06/15/2014 GARCÍA WHITE MD Ot 786.2 COUGH 06/15/2014 GARCÍA WHITE MD Ot 998.59 OTH POSTOPER INFECTION 06/15/2014 GARCÍA WHITE MD Ot V45.82 PERCUTANEOUS TRANSLUM CORON ANGIOPLASTY 06/15/2014 GARCÍA WHITE MD Ot V45.89 POSTSURGICAL STATES NEC 11/05/2014 JOHNIE TAYLOR MD Ot 879.2 11/05/2014 JOHNIE TAYLOR MD Ot E000.8 11/05/2014 JOHNIE TAYLOR MD Ot E928.9 11/14/2014 VERO VERDUGO DO 487.1 INFLUENZA 11/14/2014 REESE HEBERT APRN 487.1 INFLUENZA 11/14/2014 DELLA AGUILAR MD 487.1 INFLUENZA 01/05/2015 REESE HEBERT APRN 919.4 INSECT BITE NONVENOMOUS OF OTHER MULTIPLE AND UNSPECIFIED SITES WITHOUT INFECTION 01/05/2015 LAUREN THIBODEAUX DELLA 919.4 INSECT BITE NONVENOMOUS OF OTHER MULTIPLE AND UNSPECIFIED SITES WITHOUT INFECTION 01/15/2015 Ot 041.11 METHICILLIN SUSCEPTIBLE STAPHYLOCOCCUS A 01/15/2015 Ot 250.00 DIAB NIKITA WO COMPL, TYPE II OR UNSPEC TY 01/15/2015 Ot 272.0 PURE HYPERCHOLESTEROLEM 01/15/2015 Ot 401.9 HYPERTENSION NOS 01/15/2015 Ot 414.01 CORONARY ATHEROSCLEROSIS OF [place] CORON 01/15/2015 Ot 530.81 ESOPHAGEAL REFLUX 01/15/2015 Ot 996.69 INFEC INFLAM REACT DUE INTRN PROSTHTIC D 01/15/2015 Ot V45.82 PERCUTANEOUS TRANSLUM CORON ANGIOPLASTY 01/21/2015 Ot 250.00 DIAB NIKITA WO COMPL, TYPE II OR UNSPEC TY 01/21/2015 Ot 272.4 HYPERLIPIDEMIA NEC/NOS 01/21/2015 Ot 278.00 OBESITY, NOS 01/21/2015 Ot 365.9 GLAUCOMA NOS 01/21/2015 Ot 414.01 CORONARY ATHEROSCLEROSIS OF [place] CORON 01/21/2015 Ot 496 CHR AIRWAY OBSTRUCT NEC 01/21/2015 Ot 530.81 ESOPHAGEAL REFLUX 01/21/2015 Ot 714.0 RHEUMATOID ARTHRITIS 01/21/2015 Ot 786.50 CHEST PAIN NOS 01/21/2015 Ot V45.82 PERCUTANEOUS TRANSLUM CORON ANGIOPLASTY 01/21/2015 Ot V85.41 BODY MASS INDEX 40.0-44.9, ADULT 01/21/2015 Ot 250.00 01/21/2015 Ot 272.4 01/21/2015 Ot 278.00 01/21/2015 Ot 365.9 01/21/2015 Ot 414.01 01/21/2015 Ot 496 01/21/2015 Ot 530.81 01/21/2015 Ot 714.0 01/21/2015 Ot 786.50 01/21/2015 Ot V45.82 01/21/2015 Ot V85.41 07/03/2015 Ot 272.4 07/03/2015 Ot 401.9 07/03/2015 Ot 414.00 07/03/2015 Ot 272.4 07/03/2015 Ot 414.01 07/03/2015 ANTIONE LALA Ot 272.4 07/03/2015 ANTIONE LALA Ot 278.00 07/03/2015 ANTIONE LALA Ot 401.9 07/03/2015 QUINTIN PA, ANTIONE K Ot 414.00 07/03/2015 PULIDO-MARY ALICE PA, ANTIONE K Ot 424.0 07/03/2015 TESS-MARY ALICE PA, ANTIONE K Ot 496 07/03/2015 LINDA VELASCO APRN Ot 225.2 07/03/2015 SHER THIBODEAUX, TAKAAKI Ot 553.1 07/03/2015 SHER THIBODEAUX, TAKAAKI Ot V72.83 07/03/2015 SHER THIBODEAUX, TAKAAKI Ot V74.8 07/03/2015 SHER THIBODEAUX, TAKAAKI Ot 250.00 07/03/2015 SHER THIBODEAUX, TAKAAKI Ot 553.1 07/03/2015 SHER THIBODEAUX, TAKAAKI Ot 791.9 07/03/2015 SHER THIBODEAUX, TAKAAKI Ot V72.63 07/03/2015 SHER THIBODEAUX, TAKAAKI Ot V74.8 07/03/2015 SHER THIBODEAUX, TAKAAKI Ot 879.2 07/03/2015 SHER THIBODEAUX, TAKAAKI Ot E000.8 07/03/2015 SHER THIBODEAUX, TAKAAKI Ot E928.9 07/03/2015 Ot 998.83 07/03/2015 Ot V72.63 07/03/2015 Ot V72.83 07/03/2015 Ot V74.8 07/23/2015 TESS-MARY ALICE PA, ANTIONE K Ot 272.4 07/23/2015 TESS-MARY ALICE PA, ANTIONE Connie Ot 327.23 07/23/2015 QUINTIN PA, ANTIONE Connie Ot 401.9 07/23/2015 TESS-MARY ALICE PA, ANTIONE K Ot 414.00 08/03/2015 TESS-MARY ALICE PA, ANTIONE K Ot 272.4 08/03/2015 PULIDO-MARY ALICE PA, ANTIONE K Ot 327.23 08/03/2015 PULIDO-MARY ALICE PA, ANTIONE K Ot 401.9 08/03/2015 TESS-MARY ALICE PA, ANTIONE K Ot 414.00 08/28/2015 MARIN JIN DO Ot K29.70 GASTRITIS, UNSPECIFIED, WITHOUT BLEEDING 08/28/2015 MARIN JIN DO Ot R07.89 OTHER CHEST PAIN 08/28/2015 MARIN JIN DO Ot R07.9 CHEST PAIN, UNSPECIFIED 08/28/2015 DAVINMARIN BETTS DO Ot T39.015A ADVERSE EFFECT OF ASPIRIN, INITIAL ENCOU 09/08/2015 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 Ot I10 ESSENTIAL (PRIMARY) HYPERTENSION 09/08/2015 HEATHER UMANA APRN Ot J02.0 STREPTOCOCCAL PHARYNGITIS 10/24/2015 MARIN JIN DO Ot G43.909 MIGRAINE, UNSP, NOT INTRACTABLE, WITHOUT 12/29/2015 MIKEY THIBODEAUX, TRAM Rivero Ot I51.7 CARDIOMEGALY 12/29/2015 MIKEY THIBODEAUX, TRAM Rivero Ot R07.89 OTHER CHEST PAIN 03/09/2016 ANTIONE LALA Ot F41.8 OTHER SPECIFIED ANXIETY DISORDERS 03/09/2016 ANTIONE LALA Ot F41.8 OTHER SPECIFIED ANXIETY DISORDERS 03/10/2016 ANTIONE LALA Ot F41.8 OTHER SPECIFIED ANXIETY DISORDERS 03/10/2016 ANTIONE LALA Ot I10 ESSENTIAL (PRIMARY) HYPERTENSION 03/10/2016 ANTIONE LALA Ot I25.10 ATHSCL HEART DISEASE OF [place] CORONARY 03/10/2016 ANTIONE LALA Ot R07.89 OTHER CHEST PAIN 03/10/2016 ANTIONE LALA Ot F41.8 OTHER SPECIFIED ANXIETY DISORDERS 03/10/2016 ANTIONE LALA Ot I10 ESSENTIAL (PRIMARY) HYPERTENSION 03/10/2016 ANTIONE LALA Ot I25.10 ATHSCL HEART DISEASE OF [place] CORONARY 03/10/2016 ANTIONE LALA Ot R07.89 OTHER CHEST PAIN 03/29/2016 ANTIONE LALA Ot F41.8 OTHER SPECIFIED ANXIETY DISORDERS 03/29/2016 ANTIONE LALA Ot I10 ESSENTIAL (PRIMARY) HYPERTENSION 03/29/2016 ANTIONE LALA Ot I25.10 ATHSCL HEART DISEASE OF [place] CORONARY 03/29/2016 ANTIONE LALA Ot R07.89 OTHER CHEST PAIN 04/06/2016 ANTIONE LALA Ot F41.8 OTHER SPECIFIED ANXIETY DISORDERS 04/06/2016 ANTIONE LALA Ot I10 ESSENTIAL (PRIMARY) HYPERTENSION 04/06/2016 ANTIONE LALA Ot I25.10 ATHSCL HEART DISEASE OF [place] CORONARY 04/06/2016 ANTIONE LALA Ot R07.89 OTHER CHEST PAIN 06/21/2016 GARCÍA WHITE MD Ot I10 ESSENTIAL (PRIMARY) HYPERTENSION 06/21/2016 GARCÍA WHITE MD Ot N39.0 URINARY TRACT INFECTION, SITE NOT SPECIF 06/21/2016 GARCÍA WHITE MD Ot R42 DIZZINESS AND GIDDINESS 06/21/2016 Ot 272.4 HYPERLIPIDEMIA NEC/NOS 06/21/2016 Ot 401.9 HYPERTENSION NOS 06/21/2016 Ot 414.00 CORON ATHEROSCLER NOS TYPE VESSEL, NATIV 06/21/2016 Ot 272.4 HYPERLIPIDEMIA NEC/NOS 06/21/2016 Ot 414.01 CORONARY ATHEROSCLEROSIS OF [place] CORON 06/21/2016 ANTIONE LALA Ot 272.4 HYPERLIPIDEMIA NEC/NOS 06/21/2016 ANTIONE LALA Ot 278.00 OBESITY, NOS 06/21/2016 ANTIONE LALA Ot 401.9 HYPERTENSION NOS 06/21/2016 ANTIONE LALA Ot 414.00 CORON ATHEROSCLER NOS TYPE VESSEL, NATIV 06/21/2016 ANTIONE LALA Ot 424.0 MITRAL VALVE DISORDER 06/21/2016 ANTIONE LALA Ot 496 CHR AIRWAY OBSTRUCT NEC 06/21/2016 LINDA VELASCO APRN Ot 225.2 DALIA MERI CEREBR MENINGES 06/21/2016 JOHNIE TAYLOR MD Ot 553.1 UMBILICAL HERNIA 06/21/2016 JOHNIE TAYLOR MD Ot V72.83 EXAM PRE-OPERATIVE NEC 06/21/2016 JOHNIE TAYLOR MD Ot V74.8 SCREEN-BACTERIAL DIS NEC 06/21/2016 JOHNIE TAYLOR MD Ot 250.00 DIAB NIKITA WO COMPL, TYPE II OR UNSPEC TY 06/21/2016 JOHNIE TAYLOR MD Ot 553.1 UMBILICAL HERNIA 06/21/2016 JOHNIE TAYLOR MD Ot 791.9 ABN URINE FINDINGS NEC 06/21/2016 JOHNIE TAYLOR MD Ot V72.63 PRE-PROCEDURAL LABORATORY EXAMINATION 06/21/2016 JOHNIE TAYLOR MD Ot V74.8 SCREEN-BACTERIAL DIS NEC 06/21/2016 JOHNIE TAYLOR MD Ot 879.2 OPN WND ANTERIOR ABDOMEN 06/21/2016 JOHNIE TAYLOR MD Ot E000.8 OTHER EXTERNAL CAUSE STATUS 06/21/2016 JOHNIE TAYLOR MD Ot E928.9 ACCIDENT NOS 06/21/2016 Ot 998.83 NON-HEALING SURG WOUND 06/21/2016 Ot V72.63 PRE- PROCEDURAL LABORATORY EXAMINATION 06/21/2016 Ot V72.83 EXAM PRE- OPERATIVE NEC 06/21/2016 Ot V74.8 SCREEN- BACTERIAL DIS NEC 06/21/2016 ANTIONE LALA Ot 272.4 HYPERLIPIDEMIA NEC/NOS 06/21/2016 ANTIONE LALA Ot 327.23 OBSTRUCTIVE SLEEP APNEA (ADULT) (PEDIATR 06/21/2016 ANTIONE LALA Ot 401.9 HYPERTENSION NOS 06/21/2016 ANTIONE LALA Ot 414.00 CORON ATHEROSCLER NOS TYPE VESSEL, NATIV 06/21/2016 ANTIONE LALA Ot F41.8 OTHER SPECIFIED ANXIETY DISORDERS 06/21/2016 ANTIONE LALA Ot I10 ESSENTIAL (PRIMARY) HYPERTENSION 06/21/2016 ANTIONE LALA Ot I25.10 ATHSCL HEART DISEASE OF [place] CORONARY 06/21/2016 ANTIONE LALA Ot R07.89 OTHER CHEST PAIN 06/21/2016 Ot 272.4 HYPERLIPIDEMIA NEC/NOS 06/21/2016 Ot 401.9 HYPERTENSION NOS 06/21/2016 Ot 414.00 CORON ATHEROSCLER NOS TYPE VESSEL, NATIV 06/21/2016 Ot 272.4 HYPERLIPIDEMIA NEC/NOS 06/21/2016 Ot 414.01 CORONARY ATHEROSCLEROSIS OF [place] CORON 06/21/2016 ANTIONE LALA Ot 272.4 HYPERLIPIDEMIA NEC/NOS 06/21/2016 ANTIONE LALA Ot 278.00 OBESITY, NOS 06/21/2016 ANTIONE LALA Ot 401.9 HYPERTENSION NOS 06/21/2016 ANTIONE LALA Ot 414.00 CORON ATHEROSCLER NOS TYPE VESSEL, NATIV 06/21/2016 ANTIONE LALA Ot 424.0 MITRAL VALVE DISORDER 06/21/2016 ANTIONE LALA Ot 496 CHR AIRWAY OBSTRUCT NEC 06/21/2016 LINDA VELASCO APRN Ot 225.2 DALIA MERI CEREBR MENINGES 06/21/2016 JOHNIE TAYLOR MD Ot 553.1 UMBILICAL HERNIA 06/21/2016 JOHNIE TAYLOR MD Ot V72.83 EXAM PRE-OPERATIVE NEC 06/21/2016 JOHNIE TAYLOR MD Ot V74.8 SCREEN-BACTERIAL DIS NEC 06/21/2016 JOHNIE TAYLOR MD Ot 250.00 DIAB NIKITA WO COMPL, TYPE II OR UNSPEC TY 06/21/2016 JOHNIE TAYLOR MD Ot 553.1 UMBILICAL HERNIA 06/21/2016 JOHNIE TAYLOR MD Ot 791.9 ABN URINE FINDINGS NEC 06/21/2016 JOHNIE TAYLOR MD Ot V72.63 PRE-PROCEDURAL LABORATORY EXAMINATION 06/21/2016 JOHNIE TAYLOR MD Ot V74.8 SCREEN-BACTERIAL DIS NEC 06/21/2016 JOHNIE TAYLOR MD Ot 879.2 OPN WND ANTERIOR ABDOMEN 06/21/2016 JOHNIE TAYLOR MD Ot E000.8 OTHER EXTERNAL CAUSE STATUS 06/21/2016 JOHNIE TAYLOR MD Ot E928.9 ACCIDENT NOS 06/21/2016 Ot 998.83 NON-HEALING SURG WOUND 06/21/2016 Ot V72.63 PRE- PROCEDURAL LABORATORY EXAMINATION 06/21/2016 Ot V72.83 EXAM PRE- OPERATIVE NEC 06/21/2016 Ot V74.8 SCREEN- BACTERIAL DIS NEC 06/21/2016 ANTIONE LALA Ot 272.4 HYPERLIPIDEMIA NEC/NOS 06/21/2016 ANTIONE LALA Ot 327.23 OBSTRUCTIVE SLEEP APNEA (ADULT) (PEDIATR 06/21/2016 ANTIONE LALA Ot 401.9 HYPERTENSION NOS 06/21/2016 ANTIONE LALA Ot 414.00 CORON ATHEROSCLER NOS TYPE VESSEL, NATIV 06/21/2016 ANTIONE LALA Ot F41.8 OTHER SPECIFIED ANXIETY DISORDERS 06/21/2016 ANTIONE LALA Ot I10 ESSENTIAL (PRIMARY) HYPERTENSION 06/21/2016 ANTIONE LALA Ot I25.10 ATHSCL HEART DISEASE OF [place] CORONARY 06/21/2016 ANTIONE LALA Ot R07.89 OTHER CHEST PAIN 06/22/2016 CHRISTOPHER THIBODEAUX, GARCÍA Lorenzana Ot I10 ESSENTIAL (PRIMARY) HYPERTENSION 06/22/2016 CHRISTOPHER THIBODEAUX, GARCÍA Lorenzana Ot N39.0 URINARY TRACT INFECTION, SITE NOT SPECIF 06/22/2016 CHRISTOPHER THIBODEAUX, GARCÍA Lorenzana Ot R42 DIZZINESS AND GIDDINESS 06/29/2016 Ot 272.4 HYPERLIPIDEMIA NEC/NOS 06/29/2016 Ot 401.9 HYPERTENSION NOS 06/29/2016 Ot 414.00 CORON ATHEROSCLER NOS TYPE VESSEL, NATIV 06/29/2016 Ot 272.4 HYPERLIPIDEMIA NEC/NOS 06/29/2016 Ot 414.01 CORONARY ATHEROSCLEROSIS OF [place] CORON 06/29/2016 ANTIONE LALA Ot 272.4 HYPERLIPIDEMIA NEC/NOS 06/29/2016 ANTIONE LALA Ot 278.00 OBESITY, NOS 06/29/2016 ANTIONE LALA Ot 401.9 HYPERTENSION NOS 06/29/2016 ANTIONE LALA Ot 414.00 CORON ATHEROSCLER NOS TYPE VESSEL, NATIV 06/29/2016 ANTIONE LALA Ot 424.0 MITRAL VALVE DISORDER 06/29/2016 ANTIONE LALA Ot 496 CHR AIRWAY OBSTRUCT NEC 06/29/2016 LINDA VELASCO APRN Ot 225.2 DALIA MERI CEREBR MENINGES 06/29/2016 SHER THIBODEAUX, JOHNIE Ot 553.1 UMBILICAL HERNIA 06/29/2016 SHER THIBODEAUX, JOHNIE Ot V72.83 EXAM PRE-OPERATIVE NEC 06/29/2016 SHER THIBODEAUX, JOHNIE Ot V74.8 SCREEN-BACTERIAL DIS NEC 06/29/2016 SHER THIBODEAUX, JOHNEI Ot 250.00 DIAB NIKITA WO COMPL, TYPE II OR UNSPEC TY 06/29/2016 JOHNIE TAYLOR MD Ot 553.1 UMBILICAL HERNIA 06/29/2016 JOHNIE TAYLOR MD Ot 791.9 ABN URINE FINDINGS NEC 06/29/2016 JOHNIE TAYLOR MD Ot V72.63 PRE-PROCEDURAL LABORATORY EXAMINATION 06/29/2016 JOHNIE TAYLOR MD Ot V74.8 SCREEN-BACTERIAL DIS NEC 06/29/2016 JOHNIE TAYLOR MD Ot 879.2 OPN WND ANTERIOR ABDOMEN 06/29/2016 JOHNIE TAYLOR MD Ot E000.8 OTHER EXTERNAL CAUSE STATUS 06/29/2016 JOHNIE TAYLOR MD Ot E928.9 ACCIDENT NOS 06/29/2016 Ot 998.83 NON-HEALING SURG WOUND 06/29/2016 Ot V72.63 PRE- PROCEDURAL LABORATORY EXAMINATION 06/29/2016 Ot V72.83 EXAM PRE- OPERATIVE NEC 06/29/2016 Ot V74.8 SCREEN- BACTERIAL DIS NEC 06/29/2016 ANTIONE LALA Ot 272.4 HYPERLIPIDEMIA NEC/NOS 06/29/2016 ANTIONE LALA Ot 327.23 OBSTRUCTIVE SLEEP APNEA (ADULT) (PEDIATR 06/29/2016 ANTIONE LALA Ot 401.9 HYPERTENSION NOS 06/29/2016 ANTIONE LALA Ot 414.00 CORON ATHEROSCLER NOS TYPE VESSEL, NATIV 06/29/2016 ANTIONE LALA Ot F41.8 OTHER SPECIFIED ANXIETY DISORDERS 06/29/2016 ANTIONE LALA Ot I10 ESSENTIAL (PRIMARY) HYPERTENSION 06/29/2016 ANTIONE LALA Ot I25.10 ATHSCL HEART DISEASE OF [place] CORONARY 06/29/2016 ANTIONE LALA Ot R07.89 OTHER CHEST PAIN 06/30/2016 Ot 272.4 HYPERLIPIDEMIA NEC/NOS 06/30/2016 Ot 401.9 HYPERTENSION NOS 06/30/2016 Ot 414.00 CORON ATHEROSCLER NOS TYPE VESSEL, NATIV 06/30/2016 Ot 272.4 HYPERLIPIDEMIA NEC/NOS 06/30/2016 Ot 414.01 CORONARY ATHEROSCLEROSIS OF [place] CORON 06/30/2016 ANTIONE LALA Ot 272.4 HYPERLIPIDEMIA NEC/NOS 06/30/2016 ANTIONE LALA Ot 278.00 OBESITY, NOS 06/30/2016 ANTIONE LALA Ot 401.9 HYPERTENSION NOS 06/30/2016 ANTIONE LALA Ot 414.00 CORON ATHEROSCLER NOS TYPE VESSEL, NATIV 06/30/2016 ANTIONE LALA Ot 424.0 MITRAL VALVE DISORDER 06/30/2016 ANTIONE LALA Ot 496 CHR AIRWAY OBSTRUCT NEC 06/30/2016 LINDA VELASCO APRN Ot 225.2 DALIA MERI CEREBR MENINGES 06/30/2016 JOHNIE TAYLOR MD Ot 553.1 UMBILICAL HERNIA 06/30/2016 JOHNIE TAYLOR MD Ot V72.83 EXAM PRE-OPERATIVE NEC 06/30/2016 JOHNIE TAYLOR MD Ot V74.8 SCREEN-BACTERIAL DIS NEC 06/30/2016 JOHNIE TAYLOR MD Ot 250.00 DIAB NIKITA WO COMPL, TYPE II OR UNSPEC TY 06/30/2016 JOHNIE TAYLOR MD Ot 553.1 UMBILICAL HERNIA 06/30/2016 JOHNIE TAYLOR MD Ot 791.9 ABN URINE FINDINGS NEC 06/30/2016 JOHNIE TAYLOR MD Ot V72.63 PRE-PROCEDURAL LABORATORY EXAMINATION 06/30/2016 JOHNIE TAYLOR MD Ot V74.8 SCREEN-BACTERIAL DIS NEC 06/30/2016 JOHNIE TAYLOR MD Ot 879.2 OPN WND ANTERIOR ABDOMEN 06/30/2016 JOHNIE TAYLOR MD Ot E000.8 OTHER EXTERNAL CAUSE STATUS 06/30/2016 JOHNIE TAYLOR MD Ot E928.9 ACCIDENT NOS 06/30/2016 Ot 998.83 NON-HEALING SURG WOUND 06/30/2016 Ot V72.63 PRE- PROCEDURAL LABORATORY EXAMINATION 06/30/2016 Ot V72.83 EXAM PRE- OPERATIVE NEC 06/30/2016 Ot V74.8 SCREEN- BACTERIAL DIS NEC 06/30/2016 ANTIONE LALA Ot 272.4 HYPERLIPIDEMIA NEC/NOS 06/30/2016 ANTIONE LALA Ot 327.23 OBSTRUCTIVE SLEEP APNEA (ADULT) (PEDIATR 06/30/2016 ANTIONE LALA Ot 401.9 HYPERTENSION NOS 06/30/2016 QUINTIN LEON ANTIONE K Ot 414.00 CORON ATHEROSCLER NOS TYPE VESSEL, NATIV 06/30/2016 QUINTIN LEON ANTIONE K Ot F41.8 OTHER SPECIFIED ANXIETY DISORDERS 06/30/2016 QUINTIN LEON ANTIONE K Ot I10 ESSENTIAL (PRIMARY) HYPERTENSION 06/30/2016 QUINTIN LEON ANTIONE K Ot I25.10 ATHSCL HEART DISEASE OF [place] CORONARY 06/30/2016 QUINTIN LEON ANTIONE K Ot R07.89 OTHER CHEST PAIN 07/01/2016 QUINTIN LEON ANTIONE K Ot F41.8 OTHER SPECIFIED ANXIETY DISORDERS 07/01/2016 QUINTIN LEON ANTIONE K Ot I10 ESSENTIAL (PRIMARY) HYPERTENSION 07/01/2016 QUINTIN LEON ANTIONE K Ot I25.10 ATHSCL HEART DISEASE OF [place] CORONARY 07/01/2016 QUINTIN LEON ANTIONE K Ot R07.89 OTHER CHEST PAIN 07/02/2016 Ot 272.4 HYPERLIPIDEMIA NEC/NOS 07/02/2016 Ot 401.9 HYPERTENSION NOS 07/02/2016 Ot 414.00 CORON ATHEROSCLER NOS TYPE VESSEL, NATIV 07/02/2016 Ot 272.4 HYPERLIPIDEMIA NEC/NOS 07/02/2016 Ot 414.01 CORONARY ATHEROSCLEROSIS OF [place] CORON 07/02/2016 QUINTIN LEON ANTIONE K Ot 272.4 HYPERLIPIDEMIA NEC/NOS 07/02/2016 QUINTIN LEON ANTIONE K Ot 278.00 OBESITY, NOS 07/02/2016 QUINTIN LEON ANTIONE K Ot 401.9 HYPERTENSION NOS 07/02/2016 QUINTIN LEON ANTIONE Connie Ot 414.00 CORON ATHEROSCLER NOS TYPE VESSEL, NATIV 07/02/2016 QUINTIN LEON ANTIONE K Ot 424.0 MITRAL VALVE DISORDER 07/02/2016 QUINTIN LEON ANTIONE K Ot 496 CHR AIRWAY OBSTRUCT NEC 07/02/2016 LINDA VELASCO APRN Ot 225.2 DALIA MERI CEREBR MENINGES 07/02/2016 SHER THIBODEAUX, JOHNIE Ot 553.1 UMBILICAL HERNIA 07/02/2016 SHER THIBODEAUX, JOHNIE Ot V72.83 EXAM PRE-OPERATIVE NEC 07/02/2016 JOHNIE TAYLOR MD Ot V74.8 SCREEN-BACTERIAL DIS NEC 07/02/2016 JOHNIE TAYLOR MD Ot 250.00 DIAB NIKITA WO COMPL, TYPE II OR UNSPEC TY 07/02/2016 JOHNIE TAYLOR MD Ot 553.1 UMBILICAL HERNIA 07/02/2016 JOHNIE TAYLOR MD Ot 791.9 ABN URINE FINDINGS NEC 07/02/2016 JOHNIE TAYLOR MD Ot V72.63 PRE-PROCEDURAL LABORATORY EXAMINATION 07/02/2016 JOHNIE TAYLOR MD Ot V74.8 SCREEN-BACTERIAL DIS NEC 07/02/2016 JOHNIE TAYLOR MD Ot 879.2 OPN WND ANTERIOR ABDOMEN 07/02/2016 JOHNIE TAYLOR MD Ot E000.8 OTHER EXTERNAL CAUSE STATUS 07/02/2016 JOHNIE TAYLOR MD Ot E928.9 ACCIDENT NOS 07/02/2016 Ot 998.83 NON-HEALING SURG WOUND 07/02/2016 Ot V72.63 PRE- PROCEDURAL LABORATORY EXAMINATION 07/02/2016 Ot V72.83 EXAM PRE- OPERATIVE NEC 07/02/2016 Ot V74.8 SCREEN- BACTERIAL DIS NEC 07/02/2016 ANTIONE LALA Ot 272.4 HYPERLIPIDEMIA NEC/NOS 07/02/2016 ANTIONE LALA Ot 327.23 OBSTRUCTIVE SLEEP APNEA (ADULT) (PEDIATR 07/02/2016 ANTIONE LALA Ot 401.9 HYPERTENSION NOS 07/02/2016 ANTIONE LALA Ot 414.00 CORON ATHEROSCLER NOS TYPE VESSEL, NATIV 07/02/2016 ANTIONE LALA Ot F41.8 OTHER SPECIFIED ANXIETY DISORDERS 07/02/2016 ANTIONE LALA Ot I10 ESSENTIAL (PRIMARY) HYPERTENSION 07/02/2016 ANTIONE LALA Ot I25.10 ATHSCL HEART DISEASE OF [place] CORONARY 07/02/2016 ANTIONE LALA Ot R07.89 OTHER CHEST PAIN 07/02/2016 ANTIONE LALA Ot F41.8 OTHER SPECIFIED ANXIETY DISORDERS 07/02/2016 ANTIONE LALA Ot I10 ESSENTIAL (PRIMARY) HYPERTENSION 07/02/2016 ANTIONE LALA Ot I25.10 ATHSCL HEART DISEASE OF [place] CORONARY 07/02/2016 ANTIONE LALA Ot R07.89 OTHER CHEST PAIN 07/02/2016 GARCÍA WHITE MD Ot B17.9 ACUTE VIRAL HEPATITIS, UNSPECIFIED 07/02/2016 GARCÍA WHITE MD Ot J02.9 ACUTE PHARYNGITIS, UNSPECIFIED 07/02/2016 GARCÍA WHITE MD Ot K42.9 UMBILICAL HERNIA WITHOUT OBSTRUCTION OR 07/02/2016 GARCÍA WIHTE MD Ot 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 07/02/2016 GARCÍA WHITE MD Ot K57.30 DVRTCLOS OF LG INT W/O PERFORATION OR AB 07/02/2016 GARCÍA WHITE MD Ot K76.0 FATTY (CHANGE OF) LIVER, NOT ELSEWHERE C 07/02/2016 GARCÍA WHITE MD Ot M79.1 MYALGIA 07/02/2016 GARCÍA WHITE MD Ot R10.11 RIGHT UPPER QUADRANT PAIN 07/02/2016 GARCÍA WHITE MD Ot R68.83 CHILLS (WITHOUT FEVER) 07/02/2016 GARCÍA WHITE MD Ot Z90.49 ACQUIRED ABSENCE OF OTHER SPECIFIED PART 07/02/2016 TRAM JENSEN MD Ot B17.9 ACUTE VIRAL HEPATITIS, UNSPECIFIED 07/02/2016 TRAM JENSEN MD Ot B34.9 VIRAL INFECTION, UNSPECIFIED 07/02/2016 TRAM JENSEN MD Ot M79.1 MYALGIA 07/04/2016 GARCÍA WHITE MD Ot B17.9 ACUTE VIRAL HEPATITIS, UNSPECIFIED 07/04/2016 GARCÍA WHITE MD Ot J02.9 ACUTE PHARYNGITIS, UNSPECIFIED 07/04/2016 GARCÍA WHITE MD Ot K42.9 UMBILICAL HERNIA WITHOUT OBSTRUCTION OR 07/04/2016 GARCÍA WHITE MD Ot 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 07/04/2016 GARCÍA WHITE MD Ot K57.30 DVRTCLOS OF LG INT W/O PERFORATION OR AB 07/04/2016 GARCÍA WHITE MD Ot K76.0 FATTY (CHANGE OF) LIVER, NOT ELSEWHERE C 07/04/2016 GARCÍA WHITE MD Ot M79.1 MYALGIA 07/04/2016 GARCÍA WHITE MD Ot R10.11 RIGHT UPPER QUADRANT PAIN 07/04/2016 GARCÍA WHITE MD Ot R68.83 CHILLS (WITHOUT FEVER) 07/04/2016 GARCÍA WHITE MD Ot Z90.49 ACQUIRED ABSENCE OF OTHER SPECIFIED PART 07/04/2016 TRAM JENSEN MD Ot B17.9 ACUTE VIRAL HEPATITIS, UNSPECIFIED 07/04/2016 TRAM JENSEN MD, Ot B34.9 VIRAL INFECTION, UNSPECIFIED 07/04/2016 TRAM JENSEN MD, Ot M79.1 MYALGIA 07/12/2016 ANTIONE LALA Ot F41.8 OTHER SPECIFIED ANXIETY DISORDERS 07/12/2016 ANTIONE LALA Ot I10 ESSENTIAL (PRIMARY) HYPERTENSION 07/12/2016 ANTIONE LALA Ot I25.10 ATHSCL HEART DISEASE OF [place] CORONARY 07/12/2016 ANTIONE LALA Ot R07.89 OTHER CHEST PAIN 07/14/2016 TRAM JENSEN MD Ot B17.9 ACUTE VIRAL HEPATITIS, UNSPECIFIED 07/14/2016 TRAM JENSEN MD Ot B34.9 VIRAL INFECTION, UNSPECIFIED 07/14/2016 TRAM JENSEN MD Ot M79.1 MYALGIA 07/20/2016 ANTIONE LALA Ot F41.8 OTHER SPECIFIED ANXIETY DISORDERS 07/20/2016 ANTIONE LALA Ot I10 ESSENTIAL (PRIMARY) HYPERTENSION 07/20/2016 ANTIONE LALA Ot I25.10 ATHSCL HEART DISEASE OF [place] CORONARY 07/20/2016 ANTIONE LALA Ot R07.89 OTHER CHEST PAIN 08/03/2016 ANTIONE LALA Ot F41.8 OTHER SPECIFIED ANXIETY DISORDERS 08/03/2016 ANTIONE LALA Ot I10 ESSENTIAL (PRIMARY) HYPERTENSION 08/03/2016 ANTIONE LALA Ot I25.10 ATHSCL HEART DISEASE OF [place] CORONARY 08/03/2016 ANTIONE LALA Ot R07.89 OTHER CHEST PAIN 08/03/2016 JENIFER NELSON MD Ot B17.9 ACUTE VIRAL HEPATITIS, UNSPECIFIED 08/03/2016 JENIFER NELSON MD Ot E11.9 TYPE 2 DIABETES MELLITUS WITHOUT COMPLIC 08/03/2016 JENIFER NELSON MD Ot E66.9 OBESITY, UNSPECIFIED 08/03/2016 JENIFER NELSON MD Ot E78.5 HYPERLIPIDEMIA, UNSPECIFIED 08/03/2016 JENIFER NELSON MD Ot F41.9 ANXIETY DISORDER, UNSPECIFIED 08/03/2016 JENIFER NELSON MD Ot I10 ESSENTIAL (PRIMARY) HYPERTENSION 08/03/2016 JENIFER NELSON MD Ot I25.10 ATHSCL HEART DISEASE OF [place] CORONARY 08/03/2016 JENIFER NELSON MD Ot J44.9 CHRONIC OBSTRUCTIVE PULMONARY DISEASE, U 08/03/2016 JENIFER NELSON MD Ot R07.89 OTHER CHEST PAIN 08/03/2016 JENIFER NELSON MD Ot R94.39 ABNORMAL RESULT OF OTHER CARDIOVASCULAR 08/03/2016 JENIFER NELSON MD Ot Z68.42 BODY MASS INDEX (BMI) 45.0-49.9, ADULT 08/03/2016 JENIFER NELSON MD Ot Z79.899 OTHER SENIOR LIVING (CURRENT) DRUG THERAPY 08/03/2016 JENIFER NELSON MD Ot Z95.5 PRESENCE OF CORONARY ANGIOPLASTY IMPLANT 08/06/2016 TRAM JENSEN MD Ot B17.9 ACUTE VIRAL HEPATITIS, UNSPECIFIED 08/06/2016 TRAM JENSEN MD Ot B34.9 VIRAL INFECTION, UNSPECIFIED 08/06/2016 TRAM JENSEN MD Ot M79.1 MYALGIA 08/18/2016 JENIFER NELSON MD Ot B17.9 ACUTE VIRAL HEPATITIS, UNSPECIFIED 08/18/2016 JENIFER NELSON MD Ot E11.9 TYPE 2 DIABETES MELLITUS WITHOUT COMPLIC 08/18/2016 JENIFER NELSON MD Ot E66.9 OBESITY, UNSPECIFIED 08/18/2016 JENIFER NELSON MD Ot E78.5 HYPERLIPIDEMIA, UNSPECIFIED 08/18/2016 JENIFER NELSON MD Ot F41.9 ANXIETY DISORDER, UNSPECIFIED 08/18/2016 JENIFER NELSON MD Ot I10 ESSENTIAL (PRIMARY) HYPERTENSION 08/18/2016 JENIFER NELSON MD Ot I25.10 ATHSCL HEART DISEASE OF [place] CORONARY 08/18/2016 JENIFER NELSON MD Ot J44.9 CHRONIC OBSTRUCTIVE PULMONARY DISEASE, U 08/18/2016 JENIFER NELSON MD Ot R07.89 OTHER CHEST PAIN 08/18/2016 JENIFER NELSON MD Ot R94.39 ABNORMAL RESULT OF OTHER CARDIOVASCULAR 08/18/2016 JENIFER NELSON MD Ot Z68.42 BODY MASS INDEX (BMI) 45.0-49.9, ADULT 08/18/2016 JENIFER NELSON MD Ot Z79.899 OTHER SENIOR LIVING (CURRENT) DRUG THERAPY 08/18/2016 JENIFER NELSON MD Ot Z95.5 PRESENCE OF CORONARY ANGIOPLASTY IMPLANT 08/18/2016 JENIFER NELSON MD Ot B17.9 ACUTE VIRAL HEPATITIS, UNSPECIFIED 08/18/2016 JENIFER NELSON MD Ot E11.9 TYPE 2 DIABETES MELLITUS WITHOUT COMPLIC 08/18/2016 JENIFER NELSON MD Ot E66.9 OBESITY, UNSPECIFIED 08/18/2016 JENIFER NELSON MD Ot E78.5 HYPERLIPIDEMIA, UNSPECIFIED 08/18/2016 JENIFER NELSON MD Ot F41.9 ANXIETY DISORDER, UNSPECIFIED 08/18/2016 JENIFER NELSON MD Ot I10 ESSENTIAL (PRIMARY) HYPERTENSION 08/18/2016 JENIFER NELSON MD Ot I25.10 ATHSCL HEART DISEASE OF [place] CORONARY 08/18/2016 JENIFER NELSON MD Ot J44.9 CHRONIC OBSTRUCTIVE PULMONARY DISEASE, U 08/18/2016 JENIFER NELSON MD Ot R07.89 OTHER CHEST PAIN 08/18/2016 JENIFER NELSON MD Ot R94.39 ABNORMAL RESULT OF OTHER CARDIOVASCULAR 08/18/2016 JENIFER NELSON MD Ot Z68.42 BODY MASS INDEX (BMI) 45.0-49.9, ADULT 08/18/2016 JENIFER NELSON MD Ot Z79.899 OTHER SENIOR LIVING (CURRENT) DRUG THERAPY 08/18/2016 JENIFER NELSON MD Ot Z95.5 PRESENCE OF CORONARY ANGIOPLASTY IMPLANT 09/14/2016 HEATHER UMANA APRN Ot D32.9 BENIGN NEOPLASM OF [place], UNSPECIFIED 09/14/2016 HEATHER UMANA APRN Ot E11.9 TYPE 2 DIABETES MELLITUS WITHOUT COMPLIC 09/14/2016 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 Ot I10 ESSENTIAL (PRIMARY) HYPERTENSION 09/14/2016 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 Ot I16.0 HYPERTENSIVE URGENCY 09/14/2016 HEATHER UMANA APRN Ot J44.9 CHRONIC OBSTRUCTIVE PULMONARY DISEASE, U 09/14/2016 HEATHER UMANA APRN Ot N39.0 URINARY TRACT INFECTION, SITE NOT SPECIF 09/14/2016 HEATHER UMANA APRN Ot R20.0 ANESTHESIA OF SKIN 09/14/2016 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 Ot Z79.82 URBAN RENEWAL MANAGER (CURRENT) USE OF ASPIRIN 09/14/2016 HEATHER UMANA APRN Ot Z79.899 OTHER URBAN RENEWAL MANAGER (CURRENT) DRUG THERAPY 09/15/2016 HEATHER UMANA APRN Ot D32.9 BENIGN NEOPLASM OF [place], UNSPECIFIED 09/15/2016 HEATHER UMAAN APRN Ot E11.9 TYPE 2 DIABETES MELLITUS WITHOUT COMPLIC 09/15/2016 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 Ot I10 ESSENTIAL (PRIMARY) HYPERTENSION 09/15/2016 HEATHER UMANA APRN Ot I16.0 HYPERTENSIVE URGENCY 09/15/2016 HEATHER UMANA APRN Ot J44.9 CHRONIC OBSTRUCTIVE PULMONARY DISEASE, U 09/15/2016 HEATHER UMANA APRN Ot N39.0 URINARY TRACT INFECTION, SITE NOT SPECIF 09/15/2016 HEATHER UMANA APRN Ot R20.0 ANESTHESIA OF SKIN 09/15/2016 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 Ot Z79.82 SENIOR LIVING (CURRENT) USE OF ASPIRIN 09/15/2016 HEATHER UMANA APRN Ot Z79.899 OTHER SENIOR LIVING (CURRENT) DRUG THERAPY 09/21/2016 REESE HEBERT Ot G93.9 DISORDER OF BRAIN, UNSPECIFIED 09/21/2016 REESE HEBERT Ot G93.9 DISORDER OF BRAIN, UNSPECIFIED 09/22/2016 MIKEY THIBODEAUX, TRAM Rivero Ot B17.9 ACUTE VIRAL HEPATITIS, UNSPECIFIED 09/22/2016 MIKEY THIBODEAUX, TRAM Rivero Ot B34.9 VIRAL INFECTION, UNSPECIFIED 09/22/2016 MIKEY THIBODEAUX, TRAM Rivero Ot M79.1 MYALGIA 09/24/2016 HEATHER UMANA APRN Ot D32.9 BENIGN NEOPLASM OF [place], UNSPECIFIED 09/24/2016 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 Ot E11.9 TYPE 2 DIABETES MELLITUS WITHOUT COMPLIC 09/24/2016 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 Ot I10 ESSENTIAL (PRIMARY) HYPERTENSION 09/24/2016 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 Ot I16.0 HYPERTENSIVE URGENCY 09/24/2016 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 Ot J44.9 CHRONIC OBSTRUCTIVE PULMONARY DISEASE, U 09/24/2016 HEATHER UMANA APRN Ot N39.0 URINARY TRACT INFECTION, SITE NOT SPECIF 09/24/2016 HEATHER UMANA APRN Ot R20.0 ANESTHESIA OF SKIN 09/24/2016 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 Ot Z79.82 URBAN RENEWAL MANAGER (CURRENT) USE OF ASPIRIN 09/24/2016 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 Ot Z79.899 OTHER SENIOR LIVING (CURRENT) DRUG THERAPY 09/27/2016 HEATHER UMANA APRN Ot D32.9 BENIGN NEOPLASM OF MENINGES, UNSPECIFIED 09/27/2016 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 Ot E11.9 TYPE 2 DIABETES MELLITUS WITHOUT COMPLIC 09/27/2016 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 Ot I10 ESSENTIAL (PRIMARY) HYPERTENSION 09/27/2016 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 Ot I16.0 HYPERTENSIVE URGENCY 09/27/2016 HEATHER UMANA APRN Ot J44.9 CHRONIC OBSTRUCTIVE PULMONARY DISEASE, U 09/27/2016 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 Ot N39.0 URINARY TRACT INFECTION, SITE NOT SPECIF 09/27/2016 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 Ot R20.0 ANESTHESIA OF SKIN 09/27/2016 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 Ot Z79.82 URBAN RENEWAL MANAGER (CURRENT) USE OF ASPIRIN 09/27/2016 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 Ot Z79.899 OTHER SENIOR LIVING (CURRENT) DRUG THERAPY 10/11/2016 REESE HEBERT CFNP Ot G93.9 DISORDER OF BRAIN, UNSPECIFIED 10/25/2016 HEBERTREESE CFNP Ot G93.9 DISORDER OF BRAIN, UNSPECIFIED 05/26/2017 Ot 272.4 HYPERLIPIDEMIA NEC/NOS 05/26/2017 Ot 401.9 HYPERTENSION NOS 05/26/2017 Ot 414.00 CORON ATHEROSCLER NOS TYPE VESSEL, NATIV 05/26/2017 Ot 272.4 HYPERLIPIDEMIA NEC/NOS 05/26/2017 Ot 414.01 CORONARY ATHEROSCLEROSIS OF [place] CORON 05/26/2017 ANTIONE LALA Ot 272.4 HYPERLIPIDEMIA NEC/NOS 05/26/2017 ANTIONE LALA Ot 278.00 OBESITY, NOS 05/26/2017 ANTIONE LALA Ot 401.9 HYPERTENSION NOS 05/26/2017 ANTIONE LALA Ot 414.00 CORON ATHEROSCLER NOS TYPE VESSEL, NATIV 05/26/2017 ANTIONE LALA Ot 424.0 MITRAL VALVE DISORDER 05/26/2017 ANTIONE LALA Ot 496 CHR AIRWAY OBSTRUCT NEC 05/26/2017 LINDA VELASCO APRN Ot 225.2 DALIA MERI CEREBR MENINGES 05/26/2017 JOHNIE TAYLOR MD Ot 553.1 UMBILICAL HERNIA 05/26/2017 JOHNIE TAYLOR MD Ot V72.83 EXAM PRE-OPERATIVE NEC 05/26/2017 JOHNIE TAYLOR MD Ot V74.8 SCREEN-BACTERIAL DIS NEC 05/26/2017 JOHNIE TAYLOR MD Ot 250.00 DIAB NIKITA WO COMPL, TYPE II OR UNSPEC TY 05/26/2017 JOHNIE TAYLOR MD Ot 553.1 UMBILICAL HERNIA 05/26/2017 JOHNIE TAYLOR MD Ot 791.9 ABN URINE FINDINGS NEC 05/26/2017 JOHNIE TAYLOR MD Ot V72.63 PRE-PROCEDURAL LABORATORY EXAMINATION 05/26/2017 JOHNIE TAYLOR MD Ot V74.8 SCREEN-BACTERIAL DIS NEC 05/26/2017 JOHNIE TAYLOR MD Ot 879.2 OPN WND ANTERIOR ABDOMEN 05/26/2017 JOHNIE TAYLOR MD Ot E000.8 OTHER EXTERNAL CAUSE STATUS 05/26/2017 JOHNIE TAYLOR MD Ot E928.9 ACCIDENT NOS 05/26/2017 Ot 998.83 NON-HEALING SURG WOUND 05/26/2017 Ot V72.63 PRE- PROCEDURAL LABORATORY EXAMINATION 05/26/2017 Ot V72.83 EXAM PRE- OPERATIVE NEC 05/26/2017 Ot V74.8 SCREEN- BACTERIAL DIS NEC 05/26/2017 ANTIONE LALA Ot 272.4 HYPERLIPIDEMIA NEC/NOS 05/26/2017 ANTIONE LALA Ot 327.23 OBSTRUCTIVE SLEEP APNEA (ADULT) (PEDIATR 05/26/2017 ANTIONE LALA Ot 401.9 HYPERTENSION NOS 05/26/2017 ANTIONE LALA Ot 414.00 CORON ATHEROSCLER NOS TYPE VESSEL, NATIV 05/26/2017 ANTIONE LALA Ot F41.8 OTHER SPECIFIED ANXIETY DISORDERS 05/26/2017 ANTIONE LALA Ot I10 ESSENTIAL (PRIMARY) HYPERTENSION 05/26/2017 ANTIONE LALA Ot I25.10 ATHSCL HEART DISEASE OF [place] CORONARY 05/26/2017 ANTIONE LALA Ot R07.89 OTHER CHEST PAIN 05/26/2017 ANTIONE LALA Ot F41.8 OTHER SPECIFIED ANXIETY DISORDERS 05/26/2017 ANTIONE LALA Ot I10 ESSENTIAL (PRIMARY) HYPERTENSION 05/26/2017 ANTIONE LALA Ot I25.10 ATHSCL HEART DISEASE OF [place] CORONARY 05/26/2017 ANTIONE LALA Ot R07.89 OTHER CHEST PAIN 05/26/2017 REESE HEBERT Ot G93.9 DISORDER OF BRAIN, UNSPECIFIED 05/27/2017 TRAM JENSEN MD Ot E78.00 PURE HYPERCHOLESTEROLEMIA, UNSPECIFIED 05/27/2017 TRAM JENSEN MD Ot G43.909 MIGRAINE, UNSP, NOT INTRACTABLE, WITHOUT 05/27/2017 TRAM JENSEN MD Ot G47.30 SLEEP APNEA, UNSPECIFIED 05/27/2017 TRAM JENSEN MD Ot I10 ESSENTIAL (PRIMARY) HYPERTENSION 05/27/2017 TRAM JENSEN MD Ot I25.10 ATHSCL HEART DISEASE OF [place] CORONARY 05/27/2017 TRAM JENSEN MD, Ot J44.9 CHRONIC OBSTRUCTIVE PULMONARY DISEASE, U 05/27/2017 TRAM JENSEN MD, Ot K21.9 GASTRO-ESOPHAGEAL REFLUX DISEASE WITHOUT 05/27/2017 TRAM JENSEN MD Ot M06.9 RHEUMATOID ARTHRITIS, UNSPECIFIED 05/27/2017 TRAM JENSEN MD Ot N39.0 URINARY TRACT INFECTION, SITE NOT SPECIF 05/27/2017 TRAM JENSEN MD Ot R11.2 NAUSEA WITH VOMITING, UNSPECIFIED 05/27/2017 TRAM JENSEN MD Ot Z79.82 URBAN RENEWAL MANAGER (CURRENT) USE OF ASPIRIN 05/27/2017 TRAM JENSEN MD, Ot Z82.49 FAMILY HX OF [place] HEART DIS AND OTH DI 05/27/2017 TRAM JENSEN MD Ot Z87.19 PERSONAL HISTORY OF OTHER DISEASES OF 05/27/2017 TRAM JENSEN MD Ot Z95.5 PRESENCE OF CORONARY ANGIOPLASTY IMPLANT 05/30/2017 TRAM JENSEN MD Ot E78.00 PURE HYPERCHOLESTEROLEMIA, UNSPECIFIED 05/30/2017 TRAM JENSEN MD Ot G43.909 MIGRAINE, UNSP, NOT INTRACTABLE, WITHOUT 05/30/2017 TRAM JENSEN MD Ot G47.30 SLEEP APNEA, UNSPECIFIED 05/30/2017 TRAM JENSEN MD Ot I10 ESSENTIAL (PRIMARY) HYPERTENSION 05/30/2017 TRAM JENSEN MD Ot I25.10 ATHSCL HEART DISEASE OF [place] CORONARY 05/30/2017 TRAM JENSEN MD, Ot J44.9 CHRONIC OBSTRUCTIVE PULMONARY DISEASE, U 05/30/2017 TRAM JENSEN MD Ot K21.9 GASTRO-ESOPHAGEAL REFLUX DISEASE WITHOUT 05/30/2017 TRAM JENSEN MD Ot M06.9 RHEUMATOID ARTHRITIS, UNSPECIFIED 05/30/2017 TRAM JENSEN MD Ot N39.0 URINARY TRACT INFECTION, SITE NOT SPECIF 05/30/2017 TRAM JENSEN MD Ot R11.2 NAUSEA WITH VOMITING, UNSPECIFIED 05/30/2017 TRAM JENSEN MD Ot Z79.82 URBAN RENEWAL MANAGER (CURRENT) USE OF ASPIRIN 05/30/2017 TRAM JENSEN MD, Ot Z82.49 FAMILY HX OF [place] HEART DIS AND OTH DI 05/30/2017 TRAM JENSEN MD, Ot Z87.19 PERSONAL HISTORY OF OTHER DISEASES OF TH 05/30/2017 TRAM JENSEN MD, Ot Z95.5 PRESENCE OF CORONARY ANGIOPLASTY IMPLANT 08/21/2017 CAHDWICK العلي MD Ot E11.9 TYPE 2 DIABETES MELLITUS WITHOUT COMPLIC 08/21/2017 CHADWICK العلي MD Ot E66.9 OBESITY, UNSPECIFIED 08/21/2017 CHADWICK العلي MD, Ot E78.5 HYPERLIPIDEMIA, UNSPECIFIED 08/21/2017 CHADWICK العلي MD, Ot G47.30 SLEEP APNEA, UNSPECIFIED 08/21/2017 CHADWICK العلي MD, Ot I10 ESSENTIAL (PRIMARY) HYPERTENSION 08/21/2017 CHADWICK العلي MD Ot I25.10 ATHSCL HEART DISEASE OF [place] CORONARY 08/21/2017 CHADWICK العلي MD Ot I51.7 CARDIOMEGALY 08/21/2017 CHADWICK العلي MD, Ot J44.9 CHRONIC OBSTRUCTIVE PULMONARY DISEASE, U 08/21/2017 CHADWICK العلي MD, Ot K21.9 GASTRO-ESOPHAGEAL REFLUX DISEASE WITHOUT 08/21/2017 CHADWICK العلي MD, Ot K42.9 UMBILICAL HERNIA WITHOUT OBSTRUCTION OR 08/21/2017 CHADWICK العلي MD Ot R07.9 CHEST PAIN, UNSPECIFIED 08/21/2017 CHADWICK العلي MD, Ot Z79.82 SENIOR LIVING (CURRENT) USE OF ASPIRIN 08/21/2017 CHADWICK العلي MD, Ot Z79.899 OTHER SENIOR LIVING (CURRENT) DRUG THERAPY 08/21/2017 CHADWICK العلي MD, Ot Z95.5 PRESENCE OF CORONARY ANGIOPLASTY IMPLANT 08/21/2017 CHADWICK العلي MD, Ot E11.9 TYPE 2 DIABETES MELLITUS WITHOUT COMPLIC 08/21/2017 CHADWICK العلي MD, Ot E66.9 OBESITY, UNSPECIFIED 08/21/2017 CHADWICK العلي MD, Ot E78.5 HYPERLIPIDEMIA, UNSPECIFIED 08/21/2017 CHADWICK العلي MD, Ot G47.30 SLEEP APNEA, UNSPECIFIED 08/21/2017 CHADWICK العلي MD, Ot I10 ESSENTIAL (PRIMARY) HYPERTENSION 08/21/2017 CHADWICK العلي MD, Ot I25.10 ATHSCL HEART DISEASE OF [place] CORONARY 08/21/2017 CHADWICK العلي MD Ot I51.7 CARDIOMEGALY 08/21/2017 CHADWICK العلي MD, Ot J44.9 CHRONIC OBSTRUCTIVE PULMONARY DISEASE, U 08/21/2017 CHADWICK العلي MD, Ot K21.9 GASTRO-ESOPHAGEAL REFLUX DISEASE WITHOUT 08/21/2017 CHADWICK العلي MD, Ot K42.9 UMBILICAL HERNIA WITHOUT OBSTRUCTION OR 08/21/2017 CHADWICK العلي MD, Ot R07.9 CHEST PAIN, UNSPECIFIED 08/21/2017 CHADWICK العلي MD, Ot Z79.82 URBAN RENEWAL MANAGER (CURRENT) USE OF ASPIRIN 08/21/2017 CHADWICK العلي MD, Ot Z79.899 OTHER URBAN RENEWAL MANAGER (CURRENT) DRUG THERAPY 08/21/2017 CHADWICK العلي MD, Ot Z95.5 PRESENCE OF CORONARY ANGIOPLASTY IMPLANT 09/12/2017 JOHNIE TAYLOR MD, Ot K43.9 VENTRAL HERNIA WITHOUT OBSTRUCTION OR GA 09/12/2017 JOHNIE TAYLOR MD Ot Z01.818 ENCOUNTER FOR OTHER PREPROCEDURAL EXAMIN 09/14/2017 JOHNIE TAYLOR MD, Ot D32.0 BENIGN NEOPLASM OF CEREBRAL MENINGES 09/14/2017 JOHNIE TAYLOR MD Ot E11.9 TYPE 2 DIABETES MELLITUS WITHOUT COMPLIC 09/14/2017 JOHNIE TAYLOR MD Ot E66.01 MORBID (SEVERE) OBESITY DUE TO EXCESS CA 09/14/2017 JOHNIE TAYLOR MD Ot E78.00 PURE HYPERCHOLESTEROLEMIA, UNSPECIFIED 09/14/2017 JOHNIE TAYLOR MD, Ot G43.909 MIGRAINE, UNSP, NOT INTRACTABLE, WITHOUT 09/14/2017 JOHNIE TAYLOR MD Ot G47.33 OBSTRUCTIVE SLEEP APNEA (ADULT) (PEDIATR 09/14/2017 JOHNIE TAYLOR MD Ot I10 ESSENTIAL (PRIMARY) HYPERTENSION 09/14/2017 JOHNIE TAYLOR MD, Ot I25.10 ATHSCL HEART DISEASE OF [place] CORONARY 09/14/2017 JOHNIE TAYLOR MD, Ot J44.9 CHRONIC OBSTRUCTIVE PULMONARY DISEASE, U 09/14/2017 JOHNIE TAYLOR MD, Ot J45.909 UNSPECIFIED ASTHMA, UNCOMPLICATED 09/14/2017 JOHNIE TAYLOR MD, Ot K21.9 GASTRO-ESOPHAGEAL REFLUX DISEASE WITHOUT 09/14/2017 JOHNIE TAYLOR MD, Ot K43.2 INCISIONAL HERNIA WITHOUT OBSTRUCTION OR 09/14/2017 JOHNIE TAYLOR MD, Ot K57.30 DVRTCLOS OF LG INT W/O PERFORATION OR AB 09/14/2017 JOHNIE TAYLOR MD, Ot K64.1 SECOND DEGREE HEMORRHOIDS 09/14/2017 JOHNIE TAYLOR MD, Ot Z12.11 ENCOUNTER FOR SCREENING FOR MALIGNANT NE 09/14/2017 JOHNIE TAYLOR MD, Ot Z68.41 BODY MASS INDEX (BMI) 40.0-44.9, ADULT 09/14/2017 JOHNIE TAYLOR MD, Ot Z79.84 SENIOR LIVING (CURRENT) USE OF ORAL HYPOGLYC 09/14/2017 JOHNIE TAYLOR MD, Ot Z79.899 OTHER SENIOR LIVING (CURRENT) DRUG THERAPY 09/14/2017 JOHNIE TAYLOR MD, Ot Z95.5 PRESENCE OF CORONARY ANGIOPLASTY IMPLANT 09/17/2017 JOHNIE TAYLOR MD, Ot D32.0 BENIGN NEOPLASM OF CEREBRAL MENINGES 09/17/2017 JOHNIE TAYLOR MD, Ot E11.9 TYPE 2 DIABETES MELLITUS WITHOUT COMPLIC 09/17/2017 JOHNIE TAYLOR MD, Ot E66.01 MORBID (SEVERE) OBESITY DUE TO EXCESS CA 09/17/2017 JOHNIE TAYLOR MD Ot E78.00 PURE HYPERCHOLESTEROLEMIA, UNSPECIFIED 09/17/2017 JOHNIE TAYLOR MD, Ot G43.909 MIGRAINE, UNSP, NOT INTRACTABLE, WITHOUT 09/17/2017 JOHNIE TAYLOR MD, Ot G47.33 OBSTRUCTIVE SLEEP APNEA (ADULT) (PEDIATR 09/17/2017 JOHNIE TAYLOR MD Ot I10 ESSENTIAL (PRIMARY) HYPERTENSION 09/17/2017 JOHNIE TAYLOR MD, Ot I25.10 ATHSCL HEART DISEASE OF [place] CORONARY 09/17/2017 JOHNIE TAYLOR MD, Ot J44.9 CHRONIC OBSTRUCTIVE PULMONARY DISEASE, U 09/17/2017 JOHNIE TAYLOR MD, Ot J45.909 UNSPECIFIED ASTHMA, UNCOMPLICATED 09/17/2017 JOHNIE TAYLOR MD, Ot K21.9 GASTRO-ESOPHAGEAL REFLUX DISEASE WITHOUT 09/17/2017 JOHNIE TAYLOR MD, Ot K43.2 INCISIONAL HERNIA WITHOUT OBSTRUCTION OR 09/17/2017 JOHNIE TAYLOR MD, Ot K57.30 DVRTCLOS OF LG INT W/O PERFORATION OR AB 09/17/2017 JOHNIE TAYLOR MD, Ot K64.1 SECOND DEGREE HEMORRHOIDS 09/17/2017 JOHNIE TAYLOR MD, Ot Z12.11 ENCOUNTER FOR SCREENING FOR MALIGNANT NE 09/17/2017 JOHNIE TAYLOR MD, Ot Z68.41 BODY MASS INDEX (BMI) 40.0-44.9, ADULT 09/17/2017 JOHNIE TAYLOR MD, Ot Z79.84 URBAN RENEWAL MANAGER (CURRENT) USE OF ORAL HYPOGLYC 09/17/2017 JOHNIE TAYLOR MD, Ot Z79.899 OTHER SENIOR LIVING (CURRENT) DRUG THERAPY 09/17/2017 JOHNIE TAYLOR MD, Ot Z95.5 PRESENCE OF CORONARY ANGIOPLASTY IMPLANT 10/05/2017 JOHNIE TAYLOR MD, Ot D32.0 BENIGN NEOPLASM OF CEREBRAL MENINGES 10/05/2017 JOHNIE TAYLOR MD, Ot E11.9 TYPE 2 DIABETES MELLITUS WITHOUT COMPLIC 10/05/2017 JOHNIE TAYLOR MD Ot E66.01 MORBID (SEVERE) OBESITY DUE TO EXCESS CA 10/05/2017 JOHNIE TAYLOR MD, Ot E78.00 PURE HYPERCHOLESTEROLEMIA, UNSPECIFIED 10/05/2017 JOHNIE TAYLOR MD, Ot G43.909 MIGRAINE, UNSP, NOT INTRACTABLE, WITHOUT 10/05/2017 JOHNIE TAYLOR MD, Ot G47.33 OBSTRUCTIVE SLEEP APNEA (ADULT) (PEDIATR 10/05/2017 JOHNIE TAYLOR MD Ot I10 ESSENTIAL (PRIMARY) HYPERTENSION 10/05/2017 JOHNIE TAYLOR MD, Ot I25.10 ATHSCL HEART DISEASE OF [place] CORONARY 10/05/2017 JOHNIE TAYLOR MD, Ot J44.9 CHRONIC OBSTRUCTIVE PULMONARY DISEASE, U 10/05/2017 JOHNIE TAYLOR MD, Ot J45.909 UNSPECIFIED ASTHMA, UNCOMPLICATED 10/05/2017 JOHNIE TAYLOR MD, Ot K21.9 GASTRO-ESOPHAGEAL REFLUX DISEASE WITHOUT 10/05/2017 JOHNIE TAYLOR MD, Ot K43.2 INCISIONAL HERNIA WITHOUT OBSTRUCTION OR 10/05/2017 JOHNIE TAYLOR MD, Ot K57.30 DVRTCLOS OF LG INT W/O PERFORATION OR AB 10/05/2017 JOHNIE TAYLOR MD, Ot K64.1 SECOND DEGREE HEMORRHOIDS 10/05/2017 JOHNIE TAYLOR MD, Ot Z12.11 ENCOUNTER FOR SCREENING FOR MALIGNANT NE 10/05/2017 JOHNIE TAYLOR MD, Ot Z68.41 BODY MASS INDEX (BMI) 40.0-44.9, ADULT 10/05/2017 JOHNIE TAYLOR MD, Ot Z79.84 SENIOR LIVING (CURRENT) USE OF ORAL HYPOGLYC 10/05/2017 JOHNIE TAYLOR MD, Ot Z79.899 OTHER SENIOR LIVING (CURRENT) DRUG THERAPY 10/05/2017 JOHNIE TAYLOR MD, Ot Z95.5 PRESENCE OF CORONARY ANGIOPLASTY IMPLANT Procedures Code Description Performed By Performed On 00.40 PROCEDURE ON SINGLE VESSEL 03/27/2012 00.45 INSERTION OF ONE VASCULAR STENT 03/27/2012 00.66 PERCUTANEOUS TRANSLUMINAL CORONARY ANGIO 03/27/2012 36.07 INSRT OF DRUG-ELUTING CORON ARTERY STENT 03/27/2012 37.22 LEFT HEART CARDIAC CATH 03/27/2012 88.53 LT HEART ANGIOCARDIOGRAM 03/27/2012 88.56 CORONAR ARTERIOGR-2 CATH 03/27/2012 99.20 INJECT/INFUSE PLATELET INHIBITOR 03/27/2012 37.22 LEFT HEART CARDIAC CATH 08/08/2012 88.53 LT HEART ANGIOCARDIOGRAM 08/08/2012 88.56 CORONAR ARTERIOGR-2 CATH 08/08/2012 92407 I/D SIMPLE ABSCESS 12/18/2012 72955 CULTURE WOUND (AEROBIC) 12/18/2012 16769 ROUTINE VENIPUNCTURE 01/09/2013 65361 CBC 01/09/2013 72144 INR (IN HOUSE) 01/09/2013 86582 ROUTINE VENIPUNCTURE 01/15/2013 88050 CBC 01/15/2013 69244 MRI BRAIN W/O & W/DYE 08/22/2013 Neurology Kendra Delarosa 08/22/2013 General S [facility]as Taylor 10/28/2013 85556 A1C (IN-HOUSE) 10/28/2013 35119 A1C (IN-HOUSE) 02/24/2014 39560 ROUTINE VENIPUNCTURE 02/25/2014 14102 CBC 02/25/2014 [id number] GFR CALC (RESULT ONLY) 02/25/2014 91918 CMP 02/25/2014 29870 LIPID PANEL 02/25/2014 Cardiolog Jenifer Nelson 03/27/2014 87989 A1C (IN-HOUSE) 07/08/2014 11020 A1C (IN-HOUSE) 10/15/2014 41787 INFLUENZA A & B (IN-HOUSE) 11/14/2014 54.3 DESTRUCT ABD WALL LESION 01/15/2015 90139 A1C (IN-HOUSE) 02/04/2015 Results Test Result Range Complete blood count (CBC) with automated white blood cell (WBC) differential - 06/20/16 23:40 Blood leukocytes automated count (number/volume) 8.6 10*3/uL 4.3-11.0 Blood erythrocytes automated count (number/volume) 4.42 10*6/uL 4.35-5.85 Venous blood hemoglobin measurement (mass/volume) 13.9 g/dL 11.5-16.0 Blood hematocrit (volume fraction) 41 % 35-52 Automated erythrocyte mean corpuscular volume 92 [foz_us] 80-99 Automated erythrocyte mean corpuscular hemoglobin (mass per erythrocyte) 31 pg 25-34 Automated erythrocyte mean corpuscular hemoglobin concentration measurement ( mass/volume) 34 g/dL 32-36 Automated erythrocyte distribution width ratio 12.5 % 10.0-14.5 Automated blood platelet count (count/volume) 290 10*3/uL 130-400 Automated blood platelet mean volume measurement 8.8 [foz_us] 7.4-10.4 Automated blood neutrophils/100 leukocytes 53 % 42-75 Automated blood lymphocytes/100 leukocytes 32 % 12-44 Blood monocytes/100 leukocytes 8 % 0-12 Automated blood eosinophils/100 leukocytes 6 % 0-10 Automated blood basophils/100 leukocytes 0 % 0-10 Blood neutrophils automated count (number/volume) 4.6 10*3 1.8-7.8 Blood lymphocytes automated count (number/volume) 2.8 10*3 1.0-4.0 Blood monocytes automated count (number/volume) 0.7 10*3 0.0-1.0 Automated eosinophil count 0.5 10*3/uL 0.0-0.3 Automated blood basophil count (count/volume) 0.0 10*3/uL 0.0-0.1 Comprehensive metabolic panel - 06/20/16 23:40 Serum or plasma sodium measurement (moles/volume) 138 mmol/L 135-145 Serum or plasma potassium measurement (moles/volume) 4.1 mmol/L 3.6-5.0 Serum or plasma chloride measurement (moles/volume) 104 mmol/L 98-107 Carbon dioxide 24 mmol/L 21-32 Serum or plasma anion gap determination (moles/volume) 10 mmol/L 5-14 Serum or plasma urea nitrogen measurement (mass/volume) 12 mg/dL 7-18 Serum or plasma creatinine measurement (mass/volume) 0.76 mg/dL 0.60-1.30 Serum or plasma urea nitrogen/creatinine mass ratio 16 NRG Serum or plasma creatinine measurement with calculation of estimated glomerular filtration rate > NRG Serum or plasma glucose measurement (mass/volume) 187 mg/dL 70-105 Serum or plasma calcium measurement (mass/volume) 9.4 mg/dL 8.5-10.1 Serum or plasma total bilirubin measurement (mass/volume) 0.4 mg/dL 0.1-1.0 Serum or plasma alkaline phosphatase measurement (enzymatic activity/volume) 61 U/L 40-136 Serum or plasma aspartate aminotransferase measurement (enzymatic activity/ volume) 25 U/L 5-34 Serum or plasma alanine aminotransferase measurement (enzymatic activity/volume ) 23 U/L 0-55 Serum or plasma protein measurement (mass/volume) 6.6 g/dL 6.4-8.2 Serum or plasma albumin measurement (mass/volume) 4.0 g/dL 3.2-4.5 Magnesium - 06/20/16 23:40 Magnesium 2.3 mg/dL 1.8-2.4 Serum or plasma lithium measurement (moles/volume) - 06/20/16 23:40 BNP level 20.2 pg/mL <100.0 Serum or plasma troponin i.cardiac measurement (mass/volume) - 06/20/16 23:40 Serum or plasma troponin i.cardiac measurement (mass/volume) < ng/ mL <0.30 Serum or plasma thyrotropin measurement by detection limit <=0.05 miu/l (units/ volume) - 06/20/16 23:40 Serum or plasma thyrotropin measurement by detection limit <=0.05 miu/l (units/ volume) 1.63 u[iU]/mL 0.35-4.94 Complete urinalysis with reflex to culture - 06/21/16 00:35 Urine color determination YELLOW NRG Urine clarity determination CLEAR NRG Urine pH measurement by test strip 6.5 5-9 Specific gravity of urine by test strip 1.015 1.016- 1.022 Urine protein assay by test strip, semi-quantitative NEGATIVE NEGATIVE Urine glucose detection by automated test strip NEGATIVE NEGATIVE Erythrocytes detection in urine sediment by light microscopy 1+ NEGATIVE Urine ketones detection by automated test strip NEGATIVE NEGATIVE Urine nitrite detection by test strip NEGATIVE NEGATIVE Urine total bilirubin detection by test strip NEGATIVE NEGATIVE Urine urobilinogen measurement by automated test strip (mass/volume) NORMAL NORMAL Urine leukocyte esterase detection by dipstick 3+ NEGATIVE Automated urine sediment erythrocyte count by microscopy (number/high power field) [HPF] NRG Automated urine sediment leukocyte count by microscopy (number/high power field ) [HPF] NRG Bacteria detection in urine sediment by light microscopy MODERATE NRG Squamous epithelial cells detection in urine sediment by light microscopy 5-10 NRG Crystals detection in urine sediment by light microscopy NONE NRG Casts detection in urine sediment by light microscopy NONE NRG Mucus detection in urine sediment by light microscopy MODERATE NRG Complete urinalysis with reflex to culture YES NRG Bacterial urine culture - 06/21/16 00:35 Bacterial urine culture [id number] NRG COLONY COUNT 10,000/ML - 100,000/ML NRG FTX;REPORTABLE SENSITIVITY REPORTED AT 06-23-16 NR URINE CULTURE RESULTS PLUS NRG Bacterial susceptibility panel - 06/21/16 00:35 Gentamicin susceptibility test by minimum inhibitory concentration < = NRG Trimethoprim/sulfamethoxazole susceptibility test by minimum inhibitoryconcentration <= NRG Ampicillin susceptibility test by minimum inhibitory concentration > = NRG Tobramycin susceptibility test by minimum inhibitory concentration < = NRG Cefazolin susceptibility test by minimum inhibitory concentration > = NRG Ceftriaxone susceptibility test by minimum inhibitory concentration <= NRG Ampicillin/sulbactam susceptibility test by minimum inhibitory concentration 8 NRG Piperacillin/tazobactam susceptibility test by minimum inhibitory concentration <= NRG Ciprofloxacin susceptibility test by minimum inhibitory concentration <= NRG Meropenem susceptibility test by minimum inhibitory concentration < = NRG Nitrofurantoin susceptibility test by minimum inhibitory concentration 128 NRG Aztreonam susceptibility test by minimum inhibitory concentration < = NRG Complete urinalysis with reflex to culture - 07/02/16 08:30 Urine color determination YELLOW NRG Urine clarity determination CLEAR NRG Urine pH measurement by test strip 5 5-9 Specific gravity of urine by test strip 1.020 1.016- 1.022 Urine protein assay by test strip, semi-quantitative 1+ NEGATIVE Urine glucose detection by automated test strip NEGATIVE NEGATIVE Erythrocytes detection in urine sediment by light microscopy NEGATIVE NEGATIVE Urine ketones detection by automated test strip 1+ NEGATIVE Urine nitrite detection by test strip NEGATIVE NEGATIVE Urine total bilirubin detection by test strip 1+ NEGATIVE Urine urobilinogen measurement by automated test strip (mass/volume) 8 mg/dL NORMAL Urine leukocyte esterase detection by dipstick 1+ NEGATIVE Automated urine sediment erythrocyte count by microscopy (number/high power field) NONE NRG Automated urine sediment leukocyte count by microscopy (number/high power field ) [HPF] NRG Bacteria detection in urine sediment by light microscopy NEGATIVE NRG Squamous epithelial cells detection in urine sediment by light microscopy 5-10 NRG Crystals detection in urine sediment by light microscopy NONE NRG Casts detection in urine sediment by light microscopy NONE NRG Mucus detection in urine sediment by light microscopy NEGATIVE NRG Complete urinalysis with reflex to culture NO NRG Complete blood count (CBC) with automated white blood cell (WBC) differential - 07/02/16 08:45 Blood leukocytes automated count (number/volume) 11.6 10*3/uL 4.3-11.0 Blood erythrocytes automated count (number/volume) 4.48 10*6/uL 4.35-5.85 Venous blood hemoglobin measurement (mass/volume) 13.9 g/dL 11.5-16.0 Blood hematocrit (volume fraction) 41 % 35-52 Automated erythrocyte mean corpuscular volume 90 [foz_us] 80-99 Automated erythrocyte mean corpuscular hemoglobin (mass per erythrocyte) 31 pg 25-34 Automated erythrocyte mean corpuscular hemoglobin concentration measurement ( mass/volume) 34 g/dL 32-36 Automated erythrocyte distribution width ratio 12.9 % 10.0-14.5 Automated blood platelet count (count/volume) 251 10*3/uL 130-400 Automated blood platelet mean volume measurement 8.9 [foz_us] 7.4-10.4 Automated blood neutrophils/100 leukocytes 88 % 42-75 Automated blood lymphocytes/100 leukocytes 3 % 12-44 Blood monocytes/100 leukocytes 7 % 0-12 Automated blood eosinophils/100 leukocytes 2 % 0-10 Automated blood basophils/100 leukocytes 0 % 0-10 Blood neutrophils automated count (number/volume) 10.2 10*3 1.8-7.8 Blood lymphocytes automated count (number/volume) 0.4 10*3 1.0-4.0 Blood monocytes automated count (number/volume) 0.8 10*3 0.0-1.0 Automated eosinophil count 0.2 10*3/uL 0.0-0.3 Automated blood basophil count (count/volume) 0.0 10*3/uL 0.0-0.1 Comprehensive metabolic panel - 07/02/16 08:45 Serum or plasma sodium measurement (moles/volume) 137 mmol/L 135-145 Serum or plasma potassium measurement (moles/volume) 3.6 mmol/L 3.6-5.0 Serum or plasma chloride measurement (moles/volume) 101 mmol/L 98-107 Carbon dioxide 20 mmol/L 21-32 Serum or plasma anion gap determination (moles/volume) 16 mmol/L 5-14 Serum or plasma urea nitrogen measurement (mass/volume) 9 mg/dL 7-18 Serum or plasma creatinine measurement (mass/volume) 0.70 mg/dL 0.60-1.30 Serum or plasma urea nitrogen/creatinine mass ratio 13 NRG Serum or plasma creatinine measurement with calculation of estimated glomerular filtration rate > NRG Serum or plasma glucose measurement (mass/volume) 179 mg/dL 70-105 Serum or plasma calcium measurement (mass/volume) 9.6 mg/dL 8.5-10.1 Serum or plasma total bilirubin measurement (mass/volume) 1.6 mg/dL 0.1-1.0 Serum or plasma alkaline phosphatase measurement (enzymatic activity/volume) 150 U/L 40-136 Serum or plasma aspartate aminotransferase measurement (enzymatic activity/ volume) 198 U/L 5-34 Serum or plasma alanine aminotransferase measurement (enzymatic activity/volume ) 183 U/L 0-55 Serum or plasma protein measurement (mass/volume) 6.8 g/dL 6.4-8.2 Serum or plasma albumin measurement (mass/volume) 3.9 g/dL 3.2-4.5 Blood manual differential performed detection - 07/02/16 08:45 Blood monocytes/100 leukocytes 9 % NRG Manual blood segmented neutrophils/100 leukocytes 64 % NRG Blood band neutrophils/100 leukocytes 20 % NRG Manual blood lymphocytes/100 leukocytes 3 % NRG Manual eosinophils/100 leukocytes in nose 4 % NRG Manual blood basophils/100 leukocytes 0 % NRG Blood erythrocyte morphology finding identification NORMAL [facility] PT panel in platelet poor plasma by coagulation assay - 07/02/16 08:45 Prothrombin time (PT) in platelet poor plasma by coagulation assay 12.7 s 12.2-14.7 INR in platelet poor plasma or blood by coagulation assay 1.0 0.8-1.4 Activated partial thromboplastin time (aPTT) in platelet poor plasma bycoagulation assay - 07/02/16 08:45 Activated partial thromboplastin time (aPTT) in platelet poor plasma bycoagulation assay 27 s 24-35 Serum or plasma C reactive protein measurement (mass/volume) - 07/02/16 08:45 Serum or plasma C reactive protein measurement (mass/volume) 3.15 mg /dL 0.00-0.50 Serum or plasma creatine kinase measurement (enzymatic activity/volume) - 07/02 08:45 Serum or plasma creatine kinase measurement (enzymatic activity/volume) 81 U/L 29-168 Acute hepatitis panel - 07/02/16 08:45 Confirmatory quantitative serum or plasma hepatitis B virus surface antigen measurement Non-Reactive Non-Reactive Hepatitis A virus IgM antibody assay Non-Reactive Non- Reactive Hepatitis B virus core IgM antibody assay Non-Reactive Non-Reactive Serum hepatitis C virus antibody detection Non-Reactive Non-Reactive Streptococcus pyogenes antigen detection - 07/02/16 09:27 Streptococcus pyogenes antigen detection NEGATIVE NEGATIVE Bacterial throat culture - 07/02/16 09:27 Bacterial throat culture NBS [facility] Complete blood count (CBC) with automated white blood cell (WBC) differential - 07/02/16 19:30 Blood leukocytes automated count (number/volume) 6.7 10*3/uL 4.3-11.0 Blood erythrocytes automated count (number/volume) 4.24 10*6/uL 4.35-5.85 Venous blood hemoglobin measurement (mass/volume) 13.2 g/dL 11.5-16.0 Blood hematocrit (volume fraction) 39 % 35-52 Automated erythrocyte mean corpuscular volume 91 [foz_us] 80-99 Automated erythrocyte mean corpuscular hemoglobin (mass per erythrocyte) 31 pg 25-34 Automated erythrocyte mean corpuscular hemoglobin concentration measurement ( mass/volume) 34 g/dL 32-36 Automated erythrocyte distribution width ratio 12.8 % 10.0-14.5 Automated blood platelet count (count/volume) 246 10*3/uL 130-400 Automated blood platelet mean volume measurement 8.6 [foz_us] 7.4-10.4 Automated blood neutrophils/100 leukocytes 80 % 42-75 Automated blood lymphocytes/100 leukocytes 10 % 12-44 Blood monocytes/100 leukocytes 8 % 0-12 Automated blood eosinophils/100 leukocytes 2 % 0-10 Automated blood basophils/100 leukocytes 0 % 0-10 Blood neutrophils automated count (number/volume) 5.4 10*3 1.8-7.8 Blood lymphocytes automated count (number/volume) 0.6 10*3 1.0-4.0 Blood monocytes automated count (number/volume) 0.6 10*3 0.0-1.0 Automated eosinophil count 0.1 10*3/uL 0.0-0.3 Automated blood basophil count (count/volume) 0.0 10*3/uL 0.0-0.1 Comprehensive metabolic panel - 07/02/16 19:30 Serum or plasma sodium measurement (moles/volume) 138 mmol/L 135-145 Serum or plasma potassium measurement (moles/volume) 3.9 mmol/L 3.6-5.0 Serum or plasma chloride measurement (moles/volume) 103 mmol/L 98-107 Carbon dioxide 21 mmol/L 21-32 Serum or plasma anion gap determination (moles/volume) 14 mmol/L 5-14 Serum or plasma urea nitrogen measurement (mass/volume) 9 mg/dL 7-18 Serum or plasma creatinine measurement (mass/volume) 0.68 mg/dL 0.60-1.30 Serum or plasma urea nitrogen/creatinine mass ratio 13 NRG Serum or plasma creatinine measurement with calculation of estimated glomerular filtration rate > NRG Serum or plasma glucose measurement (mass/volume) 144 mg/dL 70-105 Serum or plasma calcium measurement (mass/volume) 9.5 mg/dL 8.5-10.1 Serum or plasma total bilirubin measurement (mass/volume) 1.4 mg/dL 0.1-1.0 Serum or plasma alkaline phosphatase measurement (enzymatic activity/volume) 141 U/L 40-136 Serum or plasma aspartate aminotransferase measurement (enzymatic activity/ volume) 208 U/L 5-34 Serum or plasma alanine aminotransferase measurement (enzymatic activity/volume ) 202 U/L 0-55 Serum or plasma protein measurement (mass/volume) 6.5 g/dL 6.4-8.2 Serum or plasma albumin measurement (mass/volume) 3.7 g/dL 3.2-4.5 Serum or plasma creatine kinase measurement (enzymatic activity/volume) - 07/02 19:30 Serum or plasma creatine kinase measurement (enzymatic activity/volume) 66 U/L 29-168 Complete urinalysis with reflex to culture - 08/03/16 07:19 Urine color determination YELLOW NRG Urine clarity determination CLEAR NRG Urine pH measurement by test strip 6 5-9 Specific gravity of urine by test strip 1.025 1.016- 1.022 Urine protein assay by test strip, semi-quantitative 1+ NEGATIVE Urine glucose detection by automated test strip NEGATIVE NEGATIVE Erythrocytes detection in urine sediment by light microscopy 3+ NEGATIVE Urine ketones detection by automated test strip NEGATIVE NEGATIVE Urine nitrite detection by test strip NEGATIVE NEGATIVE Urine total bilirubin detection by test strip NEGATIVE NEGATIVE Urine urobilinogen measurement by automated test strip (mass/volume) 1 mg/dL NORMAL Urine leukocyte esterase detection by dipstick 3+ NEGATIVE Automated urine sediment erythrocyte count by microscopy (number/high power field) [HPF] NRG Automated urine sediment leukocyte count by microscopy (number/high power field ) [HPF] NRG Bacteria detection in urine sediment by light microscopy FEW NRG Squamous epithelial cells detection in urine sediment by light microscopy 0-2 NRG Crystals detection in urine sediment by light microscopy NONE NRG Casts detection in urine sediment by light microscopy NONE NRG Mucus detection in urine sediment by light microscopy SMALL NRG Complete urinalysis with reflex to culture YES NRG Bacterial urine culture - 08/03/16 07:19 Bacterial urine culture [id number] NRG COLONY COUNT <10,000 NRG FREE TEXT ENTRY 2 AND AT LEAST 4 GRAM POSITIVE ISOLATES NRG FREE TEXT ENTRY 3 SEE COMMENTS NR Automated blood complete blood count (hemogram) panel - 08/03/16 07:30 Blood leukocytes automated count (number/volume) 8.9 10*3/uL 4.3-11.0 Blood erythrocytes automated count (number/volume) 4.73 10*6/uL 4.35-5.85 Venous blood hemoglobin measurement (mass/volume) 14.8 g/dL 11.5-16.0 Blood hematocrit (volume fraction) 43 % 35-52 Automated erythrocyte mean corpuscular volume 91 [foz_us] 80-99 Automated erythrocyte mean corpuscular hemoglobin (mass per erythrocyte) 31 pg 25-34 Automated erythrocyte mean corpuscular hemoglobin concentration measurement ( mass/volume) 34 g/dL 32-36 Automated erythrocyte distribution width ratio 12.6 % 10.0-14.5 Automated blood platelet count (count/volume) 257 10*3/uL 130-400 Automated blood platelet mean volume measurement 9.2 [foz_us] 7.4-10.4 PT panel in platelet poor plasma by coagulation assay - 08/03/16 07:30 Prothrombin time (PT) in platelet poor plasma by coagulation assay 12.2 s 12.2-14.7 INR in platelet poor plasma or blood by coagulation assay 0.9 0.8-1.4 Activated partial thromboplastin time (aPTT) in platelet poor plasma bycoagulation assay - 08/03/16 07:30 Activated partial thromboplastin time (aPTT) in platelet poor plasma bycoagulation assay 29 s 24-35 Comprehensive metabolic panel - 08/03/16 07:30 Serum or plasma sodium measurement (moles/volume) 140 mmol/L 135-145 Serum or plasma potassium measurement (moles/volume) 4.1 mmol/L 3.6-5.0 Serum or plasma chloride measurement (moles/volume) 105 mmol/L 98-107 Carbon dioxide 21 mmol/L 21-32 Serum or plasma anion gap determination (moles/volume) 14 mmol/L 5-14 Serum or plasma urea nitrogen measurement (mass/volume) 14 mg/dL 7-18 Serum or plasma creatinine measurement (mass/volume) 0.76 mg/dL 0.60-1.30 Serum or plasma urea nitrogen/creatinine mass ratio 18 NRG Serum or plasma creatinine measurement with calculation of estimated glomerular filtration rate > NRG Serum or plasma glucose measurement (mass/volume) 151 mg/dL 70-105 Serum or plasma calcium measurement (mass/volume) 9.5 mg/dL 8.5-10.1 Serum or plasma total bilirubin measurement (mass/volume) 0.6 mg/dL 0.1-1.0 Serum or plasma alkaline phosphatase measurement (enzymatic activity/volume) 73 U/L 40-136 Serum or plasma aspartate aminotransferase measurement (enzymatic activity/ volume) 27 U/L 5-34 Serum or plasma alanine aminotransferase measurement (enzymatic activity/volume ) 32 U/L 0-55 Serum or plasma protein measurement (mass/volume) 7.1 g/dL 6.4-8.2 Serum or plasma albumin measurement (mass/volume) 4.3 g/dL 3.2-4.5 Lipid 1996 panel - 08/03/16 07:30 Serum or plasma triglyceride measurement (mass/volume) 154 mg/dL <150 Serum or plasma cholesterol measurement (mass/volume) 197 mg/dL < 200 Serum or plasma cholesterol in HDL measurement (mass/volume) 43 mg/ dL 40-60 Cholesterol in LDL [mass/volume] in serum or plasma by direct assay 139 mg/dL 1-129 Serum or plasma cholesterol in VLDL measurement (mass/volume) 31 mg/ dL 5-40 Methicillin resistant Staphylococcus aureus (MRSA) screening culture - 07:30 Methicillin resistant Staphylococcus aureus (MRSA) screening culture NEG NRG Complete blood count (CBC) with automated white blood cell (WBC) differential - 09/14/16 12:08 Blood leukocytes automated count (number/volume) 8.6 10*3/uL 4.3-11.0 Blood erythrocytes automated count (number/volume) 4.46 10*6/uL 4.35-5.85 Venous blood hemoglobin measurement (mass/volume) 13.7 g/dL 11.5-16.0 Blood hematocrit (volume fraction) 40 % 35-52 Automated erythrocyte mean corpuscular volume 90 [foz_us] 80-99 Automated erythrocyte mean corpuscular hemoglobin (mass per erythrocyte) 31 pg 25-34 Automated erythrocyte mean corpuscular hemoglobin concentration measurement ( mass/volume) 34 g/dL 32-36 Automated erythrocyte distribution width ratio 12.7 % 10.0-14.5 Automated blood platelet count (count/volume) 278 10*3/uL 130-400 Automated blood platelet mean volume measurement 8.7 [foz_us] 7.4-10.4 Automated blood neutrophils/100 leukocytes 62 % 42-75 Automated blood lymphocytes/100 leukocytes 25 % 12-44 Blood monocytes/100 leukocytes 7 % 0-12 Automated blood eosinophils/100 leukocytes 5 % 0-10 Automated blood basophils/100 leukocytes 0 % 0-10 Blood neutrophils automated count (number/volume) 5.4 10*3 1.8-7.8 Blood lymphocytes automated count (number/volume) 2.2 10*3 1.0-4.0 Blood monocytes automated count (number/volume) 0.6 10*3 0.0-1.0 Automated eosinophil count 0.4 10*3/uL 0.0-0.3 Automated blood basophil count (count/volume) 0.0 10*3/uL 0.0-0.1 PT panel in platelet poor plasma by coagulation assay - 09/14/16 12:08 Prothrombin time (PT) in platelet poor plasma by coagulation assay 12.2 s 12.2-14.7 INR in platelet poor plasma or blood by coagulation assay 0.9 0.8-1.4 Comprehensive metabolic panel - 09/14/16 12:08 Serum or plasma sodium measurement (moles/volume) 139 mmol/L 135-145 Serum or plasma potassium measurement (moles/volume) 3.9 mmol/L 3.6-5.0 Serum or plasma chloride measurement (moles/volume) 105 mmol/L 98-107 Carbon dioxide 24 mmol/L 21-32 Serum or plasma anion gap determination (moles/volume) 10 mmol/L 5-14 Serum or plasma urea nitrogen measurement (mass/volume) 10 mg/dL 7-18 Serum or plasma creatinine measurement (mass/volume) 0.73 mg/dL 0.60-1.30 Serum or plasma urea nitrogen/creatinine mass ratio 14 NRG Serum or plasma creatinine measurement with calculation of estimated glomerular filtration rate > NRG Serum or plasma glucose measurement (mass/volume) 153 mg/dL 70-105 Serum or plasma calcium measurement (mass/volume) 9.3 mg/dL 8.5-10.1 Serum or plasma total bilirubin measurement (mass/volume) 0.5 mg/dL 0.1-1.0 Serum or plasma alkaline phosphatase measurement (enzymatic activity/volume) 63 U/L 40-136 Serum or plasma aspartate aminotransferase measurement (enzymatic activity/ volume) 26 U/L 5-34 Serum or plasma alanine aminotransferase measurement (enzymatic activity/volume ) 28 U/L 0-55 Serum or plasma protein measurement (mass/volume) 6.8 g/dL 6.4-8.2 Serum or plasma albumin measurement (mass/volume) 4.0 g/dL 3.2-4.5 Serum or plasma troponin i.cardiac measurement (mass/volume) - 09/14/16 12:08 Serum or plasma troponin i.cardiac measurement (mass/volume) < ng/ mL <0.30 Complete urinalysis with reflex to culture - 09/14/16 12:52 Urine color determination YELLOW NRG Urine clarity determination SLIGHTLY CLOUDY NRG Urine pH measurement by test strip 5 5-9 Specific gravity of urine by test strip 1.015 1.016- 1.022 Urine protein assay by test strip, semi-quantitative NEGATIVE NEGATIVE Urine glucose detection by automated test strip NEGATIVE NEGATIVE Erythrocytes detection in urine sediment by light microscopy 4+ NEGATIVE Urine ketones detection by automated test strip NEGATIVE NEGATIVE Urine nitrite detection by test strip NEGATIVE NEGATIVE Urine total bilirubin detection by test strip NEGATIVE NEGATIVE Urine urobilinogen measurement by automated test strip (mass/volume) NORMAL NORMAL Urine leukocyte esterase detection by dipstick 3+ NEGATIVE Automated urine sediment erythrocyte count by microscopy (number/high power field) [HPF] NRG Automated urine sediment leukocyte count by microscopy (number/high power field ) [HPF] NRG Bacteria detection in urine sediment by light microscopy TRACE NRG Squamous epithelial cells detection in urine sediment by light microscopy 10-25 NRG Crystals detection in urine sediment by light microscopy NONE NRG Casts detection in urine sediment by light microscopy NONE NRG Mucus detection in urine sediment by light microscopy NEGATIVE NRG Complete urinalysis with reflex to culture YES NRG Bacterial urine culture - 09/14/16 12:52 URINE CULTURE RESULTS <10,000/ML NRG Complete urinalysis with reflex to culture - 05/26/17 23:38 Urine color determination YELLOW NRG Urine clarity determination SLIGHTLY CLOUDY NRG Urine pH measurement by test strip 6 5-9 Specific gravity of urine by test strip 1.015 1.016- 1.022 Urine protein assay by test strip, semi-quantitative NEGATIVE NEGATIVE Urine glucose detection by automated test strip NEGATIVE NEGATIVE Erythrocytes detection in urine sediment by light microscopy 1+ NEGATIVE Urine ketones detection by automated test strip NEGATIVE NEGATIVE Urine nitrite detection by test strip NEGATIVE NEGATIVE Urine total bilirubin detection by test strip NEGATIVE NEGATIVE Urine urobilinogen measurement by automated test strip (mass/volume) NORMAL NORMAL Urine leukocyte esterase detection by dipstick 2+ NEGATIVE Automated urine sediment erythrocyte count by microscopy (number/high power field) [HPF] NRG Automated urine sediment leukocyte count by microscopy (number/high power field ) [HPF] NRG Bacteria detection in urine sediment by light microscopy TRACE NRG Squamous epithelial cells detection in urine sediment by light microscopy 10-25 NRG Crystals detection in urine sediment by light microscopy NONE NRG Casts detection in urine sediment by light microscopy NONE NRG Mucus detection in urine sediment by light microscopy MODERATE NRG Complete urinalysis with reflex to culture YES NRG Bacterial urine culture - 05/26/17 23:38 Bacterial urine culture [id number] NRG COLONY COUNT 10,000/ML - 100,000/ML NRG FREE TEXT ENTRY 2 MIXED GRAM POSITIVE INGA <10,000/ML NRG Complete blood count (CBC) with automated white blood cell (WBC) differential - 05/26/17 23:43 Blood leukocytes automated count (number/volume) 14.5 10*3/uL 4.3-11.0 Blood erythrocytes automated count (number/volume) 4.61 10*6/uL 4.35-5.85 Venous blood hemoglobin measurement (mass/volume) 14.1 g/dL 11.5-16.0 Blood hematocrit (volume fraction) 42 % 35-52 Automated erythrocyte mean corpuscular volume 91 [foz_us] 80-99 Automated erythrocyte mean corpuscular hemoglobin (mass per erythrocyte) 31 pg 25-34 Automated erythrocyte mean corpuscular hemoglobin concentration measurement ( mass/volume) 34 g/dL 32-36 Automated erythrocyte distribution width ratio 13.2 % 10.0-14.5 Automated blood platelet count (count/volume) 305 10*3/uL 130-400 Automated blood platelet mean volume measurement 8.8 [foz_us] 7.4-10.4 Automated blood neutrophils/100 leukocytes 88 % 42-75 Automated blood lymphocytes/100 leukocytes 6 % 12-44 Blood monocytes/100 leukocytes 5 % 0-12 Automated blood eosinophils/100 leukocytes 1 % 0-10 Automated blood basophils/100 leukocytes 0 % 0-10 Blood neutrophils automated count (number/volume) 12.7 10*3 1.8-7.8 Blood lymphocytes automated count (number/volume) 0.9 10*3 1.0-4.0 Blood monocytes automated count (number/volume) 0.8 10*3 0.0-1.0 Automated eosinophil count 0.1 10*3/uL 0.0-0.3 Automated blood basophil count (count/volume) 0.0 10*3/uL 0.0-0.1 PT panel in platelet poor plasma by coagulation assay - 05/26/17 23:43 Prothrombin time (PT) in platelet poor plasma by coagulation assay 12.2 s 12.2-14.7 INR in platelet poor plasma or blood by coagulation assay 0.9 0.8-1.4 Activated partial thromboplastin time (aPTT) in platelet poor plasma bycoagulation assay - 05/26/17 23:43 Activated partial thromboplastin time (aPTT) in platelet poor plasma bycoagulation assay 28 s 24-35 Blood lactic acid measurement (moles/volume) - 05/26/17 23:43 Blood lactic acid measurement (moles/volume) 1.89 mmol/L 0.50-2.00 Blood manual differential performed detection - 05/26/17 23:43 Blood monocytes/100 leukocytes 2 % NRG Manual blood segmented neutrophils/100 leukocytes 89 % NRG Blood band neutrophils/100 leukocytes 4 % NRG Manual blood lymphocytes/100 leukocytes 3 % NRG Manual eosinophils/100 leukocytes in nose 1 % NRG Manual blood basophils/100 leukocytes 0 % NRG Blood lymphocytes variant/100 leukocytes 1 % NRG Blood erythrocyte morphology finding identification [facility] Comprehensive metabolic panel - 05/26/17 23:43 Serum or plasma sodium measurement (moles/volume) 136 mmol/L 135-145 Serum or plasma potassium measurement (moles/volume) 4.2 mmol/L 3.6-5.0 Serum or plasma chloride measurement (moles/volume) 101 mmol/L 98-107 Carbon dioxide 21 mmol/L 21-32 Serum or plasma anion gap determination (moles/volume) 14 mmol/L 5-14 Serum or plasma urea nitrogen measurement (mass/volume) 11 mg/dL 7-18 Serum or plasma creatinine measurement (mass/volume) 0.71 mg/dL 0.60-1.30 Serum or plasma urea nitrogen/creatinine mass ratio 15 NRG Serum or plasma creatinine measurement with calculation of estimated glomerular filtration rate > NRG Serum or plasma glucose measurement (mass/volume) 164 mg/dL 70-105 Serum or plasma calcium measurement (mass/volume) 9.3 mg/dL 8.5-10.1 Serum or plasma total bilirubin measurement (mass/volume) 0.8 mg/dL 0.1-1.0 Serum or plasma alkaline phosphatase measurement (enzymatic activity/volume) 71 U/L 40-136 Serum or plasma aspartate aminotransferase measurement (enzymatic activity/ volume) 18 U/L 5-34 Serum or plasma alanine aminotransferase measurement (enzymatic activity/volume ) 19 U/L 0-55 Serum or plasma protein measurement (mass/volume) 7.1 g/dL 6.4-8.2 Serum or plasma albumin measurement (mass/volume) 4.0 g/dL 3.2-4.5 Bacterial blood culture - 05/26/17 23:43 Bacterial blood culture NG NRG Bacterial blood culture - 05/27/17 00:03 Bacterial blood culture NG NR Complete blood count (CBC) with automated white blood cell (WBC) differential - 08/20/17 21:00 Blood leukocytes automated count (number/volume) 10.8 10*3/uL 4.3-11.0 Blood erythrocytes automated count (number/volume) 4.44 10*6/uL 4.35-5.85 Venous blood hemoglobin measurement (mass/volume) 13.7 g/dL 11.5-16.0 Blood hematocrit (volume fraction) 41 % 35-52 Automated erythrocyte mean corpuscular volume 91 [foz_us] 80-99 Automated erythrocyte mean corpuscular hemoglobin (mass per erythrocyte) 31 pg 25-34 Automated erythrocyte mean corpuscular hemoglobin concentration measurement ( mass/volume) 34 g/dL 32-36 Automated erythrocyte distribution width ratio 12.8 % 10.0-14.5 Automated blood platelet count (count/volume) 306 10*3/uL 130-400 Automated blood platelet mean volume measurement 8.7 [foz_us] 7.4-10.4 Automated blood neutrophils/100 leukocytes 63 % 42-75 Automated blood lymphocytes/100 leukocytes 26 % 12-44 Blood monocytes/100 leukocytes 7 % 0-12 Automated blood eosinophils/100 leukocytes 5 % 0-10 Automated blood basophils/100 leukocytes 0 % 0-10 Blood neutrophils automated count (number/volume) 6.8 10*3 1.8-7.8 Blood lymphocytes automated count (number/volume) 2.8 10*3 1.0-4.0 Blood monocytes automated count (number/volume) 0.7 10*3 0.0-1.0 Automated eosinophil count 0.5 10*3/uL 0.0-0.3 Automated blood basophil count (count/volume) 0.0 10*3/uL 0.0-0.1 PT panel in platelet poor plasma by coagulation assay - 08/20/17 21:00 Prothrombin time (PT) in platelet poor plasma by coagulation assay 12.7 s 12.2-14.7 INR in platelet poor plasma or blood by coagulation assay 0.9 0.8-1.4 Activated partial thromboplastin time (aPTT) in platelet poor plasma bycoagulation assay - 08/20/17 21:00 Activated partial thromboplastin time (aPTT) in platelet poor plasma bycoagulation assay 27 s 24-35 Comprehensive metabolic panel - 08/20/17 21:00 Serum or plasma sodium measurement (moles/volume) 138 mmol/L 135-145 Serum or plasma potassium measurement (moles/volume) 3.7 mmol/L 3.6-5.0 Serum or plasma chloride measurement (moles/volume) 102 mmol/L 98-107 Carbon dioxide 24 mmol/L 21-32 Serum or plasma anion gap determination (moles/volume) 12 mmol/L 5-14 Serum or plasma urea nitrogen measurement (mass/volume) 11 mg/dL 7-18 Serum or plasma creatinine measurement (mass/volume) 0.69 mg/dL 0.60-1.30 Serum or plasma urea nitrogen/creatinine mass ratio 16 NRG Serum or plasma creatinine measurement with calculation of estimated glomerular filtration rate > NRG Serum or plasma glucose measurement (mass/volume) 132 mg/dL 70-105 Serum or plasma calcium measurement (mass/volume) 9.5 mg/dL 8.5-10.1 Serum or plasma total bilirubin measurement (mass/volume) 0.4 mg/dL 0.1-1.0 Serum or plasma alkaline phosphatase measurement (enzymatic activity/volume) 65 U/L 40-136 Serum or plasma aspartate aminotransferase measurement (enzymatic activity/ volume) 20 U/L 5-34 Serum or plasma alanine aminotransferase measurement (enzymatic activity/volume ) 17 U/L 0-55 Serum or plasma protein measurement (mass/volume) 7.2 g/dL 6.4-8.2 Serum or plasma albumin measurement (mass/volume) 4.0 g/dL 3.2-4.5 Magnesium - 08/20/17 21:00 Magnesium 2.1 mg/dL 1.8-2.4 Serum or plasma creatine kinase measurement (enzymatic activity/volume) - 08/20 21:00 Serum or plasma creatine kinase measurement (enzymatic activity/volume) 44 U/L 29-168 Serum or plasma creatine kinase MB measurement (enzymatic activity/volume) - 21:00 Serum or plasma creatine kinase MB measurement (enzymatic activity/volume) 0.7 ng/mL <6.6 Serum or plasma troponin i.cardiac measurement (mass/volume) - 08/20/17 21:00 Serum or plasma troponin i.cardiac measurement (mass/volume) < ng/ mL <0.30 Serum or plasma lithium measurement (moles/volume) - 08/20/17 21:00 BNP level 16.0 pg/mL <100.0 Serum or plasma amylase measurement (enzymatic activity/volume) - 08/20/17 21: 00 Serum or plasma amylase measurement (enzymatic activity/volume) 37 U /L 25-125 Lipase - 08/20/17 21:00 Lipase 18 U/L 8-78 Serum or plasma troponin i.cardiac measurement (mass/volume) - 08/21/17 03:15 Serum or plasma troponin i.cardiac measurement (mass/volume) < ng/ mL <0.30 Capillary blood glucose measurement by glucometer (mass/volume) - 08/21/17 05: 11 Capillary blood glucose measurement by glucometer (mass/volume) 121 mg/dL 70-110 Complete blood count (CBC) with automated white blood cell (WBC) differential - 08/21/17 05:25 Blood leukocytes automated count (number/volume) 10.3 10*3/uL 4.3-11.0 Blood erythrocytes automated count (number/volume) 4.42 10*6/uL 4.35-5.85 Venous blood hemoglobin measurement (mass/volume) 13.4 g/dL 11.5-16.0 Blood hematocrit (volume fraction) 40 % 35-52 Automated erythrocyte mean corpuscular volume 91 [foz_us] 80-99 Automated erythrocyte mean corpuscular hemoglobin (mass per erythrocyte) 30 pg 25-34 Automated erythrocyte mean corpuscular hemoglobin concentration measurement ( mass/volume) 33 g/dL 32-36 Automated erythrocyte distribution width ratio 12.8 % 10.0-14.5 Automated blood platelet count (count/volume) 250 10*3/uL 130-400 Automated blood platelet mean volume measurement 8.8 [foz_us] 7.4-10.4 Automated blood neutrophils/100 leukocytes 63 % 42-75 Automated blood lymphocytes/100 leukocytes 24 % 12-44 Blood monocytes/100 leukocytes 8 % 0-12 Automated blood eosinophils/100 leukocytes 5 % 0-10 Automated blood basophils/100 leukocytes 0 % 0-10 Blood neutrophils automated count (number/volume) 6.5 10*3 1.8-7.8 Blood lymphocytes automated count (number/volume) 2.5 10*3 1.0-4.0 Blood monocytes automated count (number/volume) 0.9 10*3 0.0-1.0 Automated eosinophil count 0.5 10*3/uL 0.0-0.3 Automated blood basophil count (count/volume) 0.0 10*3/uL 0.0-0.1 Comprehensive metabolic panel - 08/21/17 05:25 Serum or plasma sodium measurement (moles/volume) 138 mmol/L 135-145 Serum or plasma potassium measurement (moles/volume) 3.7 mmol/L 3.6-5.0 Serum or plasma chloride measurement (moles/volume) 104 mmol/L 98-107 Carbon dioxide 23 mmol/L 21-32 Serum or plasma anion gap determination (moles/volume) 11 mmol/L 5-14 Serum or plasma urea nitrogen measurement (mass/volume) 10 mg/dL 7-18 Serum or plasma creatinine measurement (mass/volume) 0.67 mg/dL 0.60-1.30 Serum or plasma urea nitrogen/creatinine mass ratio 15 NRG Serum or plasma creatinine measurement with calculation of estimated glomerular filtration rate > NRG Serum or plasma glucose measurement (mass/volume) 122 mg/dL 70-105 Serum or plasma calcium measurement (mass/volume) 9.3 mg/dL 8.5-10.1 Serum or plasma total bilirubin measurement (mass/volume) 0.6 mg/dL 0.1-1.0 Serum or plasma alkaline phosphatase measurement (enzymatic activity/volume) 62 U/L 40-136 Serum or plasma aspartate aminotransferase measurement (enzymatic activity/ volume) 16 U/L 5-34 Serum or plasma alanine aminotransferase measurement (enzymatic activity/volume ) 16 U/L 0-55 Serum or plasma protein measurement (mass/volume) 6.4 g/dL 6.4-8.2 Serum or plasma albumin measurement (mass/volume) 3.7 g/dL 3.2-4.5 Lipid 1996 panel - 08/21/17 05:25 Serum or plasma triglyceride measurement (mass/volume) 153 mg/dL <150 Serum or plasma cholesterol measurement (mass/volume) 168 mg/dL < 200 Serum or plasma cholesterol in HDL measurement (mass/volume) 46 mg/ dL 40-60 Cholesterol in LDL [mass/volume] in serum or plasma by direct assay 104 mg/dL 1-129 Serum or plasma cholesterol in VLDL measurement (mass/volume) 31 mg/ dL 5-40 Capillary blood glucose measurement by glucometer (mass/volume) - 08/21/17 11: 17 Capillary blood glucose measurement by glucometer (mass/volume) 124 mg/dL 70-110 Capillary blood glucose measurement by glucometer (mass/volume) - 08/21/17 16: 07 Capillary blood glucose measurement by glucometer (mass/volume) 192 mg/dL 70-110 Methicillin resistant Staphylococcus aureus (MRSA) screening culture - 12:44 Methicillin resistant Staphylococcus aureus (MRSA) screening culture NEG NRG Capillary blood glucose measurement by glucometer (mass/volume) - 09/14/17 07: 17 Capillary blood glucose measurement by glucometer (mass/volume) 134 mg/dL 70-110 Encounters ACCT No. Visit Date/Time Discharge Status Pt. Type Provider Facility Loc./Unit Complaint [id number] 02/16/2015 09:11:00 02/16/2015 23:59:59 CLS Outpatient DELLA AGUILAR MD [id number] 01/05/2015 13:26:00 01/05/2015 23:59:59 CLS Outpatient REESE HEBERT APRN [id number] 11/14/2014 09:48:00 11/14/2014 23:59:59 CLS Outpatient VERO VERDUGO DO [id number] 10/15/2014 11:17:00 10/15/2014 23:59:59 CLS Outpatient VERO VERDUGO DO [id number] 10/15/2014 11:17:00 10/15/2014 23:59:59 CLS Outpatient REESE HEBERT APRN [id number] 07/08/2014 09:35:00 07/08/2014 23:59:59 MICHELLE Outpatient REESE HEBERT APRN [id number] 07/08/2014 09:35:00 07/08/2014 23:59:59 CLS Outpatient VERO VERDUGO DO [id number] 06/02/2014 16:01:00 06/02/2014 23:59:59 MICHELLE Outpatient REESE HEBERT APRN [id number] 04/02/2014 10:46:00 04/02/2014 23:59:59 CLS Outpatient REESE HEBERT APRN [id number] 03/07/2014 13:14:00 03/07/2014 23:59:59 CLS Outpatient VERO VERDUGO DO Connie [id number] 02/25/2014 10:17:00 02/25/2014 23:59:59 CLS Outpatient VERO VERDUGO DO Connie [id number] 01/30/2014 10:07:00 01/30/2014 23:59:59 CLS Outpatient JUSTICE HAILE NAJERA [id number] 10/28/2013 17:30:00 10/28/2013 23:59:59 CLS Outpatient VERO VERDUGO DO Connie [id number] 10/28/2013 17:30:00 10/28/2013 23:59:59 CLS Outpatient EMILEE REESE GALEAS [id number] 08/22/2013 15:30:00 08/22/2013 23:59:59 CLS Outpatient JUSTICE HAILE NAJERA [id number] 08/14/2013 10:21:00 08/14/2013 23:59:59 CLS Outpatient KAREN VERDUGO DORadha Rosales [id number] 01/15/2013 14:41:00 01/15/2013 23:59:59 CLS Outpatient [id number] 01/09/2013 10:04:00 01/09/2013 23:59:59 CLS Outpatient JAG NEWELL MD [id number] 01/09/2013 10:04:00 01/09/2013 23:59:59 CLS Outpatient [id number] 12/18/2012 15:34:00 12/18/2012 23:59:59 CLS Outpatient [id number] 12/18/2012 15:34:00 12/18/2012 23:59:59 CLS Outpatient JAG NEWELL MD [id number] 11/14/2012 09:20:00 11/14/2012 23:59:59 CLS Outpatient [id number] 11/14/2012 09:20:00 11/14/2012 23:59:59 CLS Outpatient JAG NEWELL MD [id number] 09/13/2012 10:47:00 09/13/2012 23:59:59 CLS Outpatient JAG NEWELL MD [id number] 06/04/2013 15:18:00 Document Registration [id number] 05/07/2013 15:51:00 Document Registration [id number] 03/12/2013 10:41:00 Document Registration [id number] 01/01/2018 10:20:00 01/01/2018 23:59:59 CLS Outpatient REESE HEBERT APRN [facility] [id number] 09/14/2017 07:05:00 09/14/2017 13:28:00 DIS Outpatient JOHNIE TAYLOR MD [facility] ABDOMINAL INCISIONAL HERNIA; SCREENING [id number] 09/11/2017 12:18:00 09/11/2017 12:50:00 DIS Outpatient JOHNIE TAYLOR MD [facility] PREOP VENTRAL ABDOMINAL INCISIONAL HERNIA [id number] 08/20/2017 22:35:00 08/21/2017 20:10:00 DIS Inpatient CHADWICK العلي MD [facility] 4TH CHEST PAIN; HTN; HX OF CAD [id number] 05/26/2017 23:26:00 05/27/2017 02:08:00 DIS Emergency TRAM JENSEN MD [facility] ER VOMITING,BLOOD IN URINE,FEVER [id number] 09/20/2016 09:32:00 09/20/2016 23:59:59 CLS Outpatient REESE HEBERT CFKENRICK [facility] RAD MASS OF RT TEMPOROPARIETAL REGION [id number] 09/14/2016 11:53:00 09/14/2016 13:52:00 DIS Emergency HEATHER UMANA APRN [facility] ER LEFT FACIAL NUMBNESS/ TINGLING [id number] 08/03/2016 06:51:00 08/03/2016 14:00:00 DIS Outpatient JENIFER NELSON MD [facility] CATH ABNORMAL STRESS,CAD, CHEST PAIN,HTN,HLP [id number] 07/02/2016 18:46:00 07/02/2016 21:00:00 DIS Emergency TRAM JENSEN MD [facility] ER PAIN [id number] 07/02/2016 07:49:00 07/02/2016 13:17:00 DIS Emergency GARCÍA WHITE MD [facility] ER CHILLS, SHAKING [id number] 06/29/2016 12:35:00 06/29/2016 23:59:59 CLS Outpatient ANTIONE LALA [facility] CARD ANXIETY,CAD, CHEST PAIN [id number] 06/20/2016 22:52:00 06/21/2016 01:21:00 DIS Emergency GARCÍA WHITE MD [facility] ER ELEVATED BLOOD PRESSURE,DIZZINESS [id number] 03/09/2016 12:02:00 03/09/2016 23:59:59 CLS Outpatient ANTIONE LALA [facility] CARD ANXIETY,CAD , CHEST PAIN,HTN [id number] 12/29/2015 10:23:00 12/29/2015 23:59:59 CLS Emergency TRAM JENSEN MD [facility] ER CHEST PAIN/ANXIETY [id number] 10/23/2015 22:50:00 10/24/2015 00:49:00 DIS Emergency MARIN JIN DO [facility] ER HEADACHE,BLURRY VISION [id number] 09/08/2015 15:17:00 09/08/2015 18:00:00 DIS Emergency HEATHER UMANA APRN [facility] ER BODY ACHES, LETHARGIC [id number] 08/28/2015 20:52:00 08/28/2015 22:47:00 DIS Emergency MARIN JIN DO [facility] ER CHEST PAIN [id number] 07/03/2015 11:51:00 07/03/2015 23:59:59 CLS Outpatient ANTIONE LALA [facility] LAB CAD,HTN [id number] 10/06/2014 17:41:00 10/06/2014 23:59:59 CLS Outpatient JOHNIE TAYLOR MD [facility] LABNPT UMBILICAL WOUND [id number] 06/15/2014 18:44:00 06/15/2014 21:57:00 DIS Emergency GARCÍA WHITE MD [facility] ER COUGH [id number] 05/29/2014 06:00:00 05/29/2014 14:40:00 DIS Outpatient JOHNIE TAYLOR MD [facility] SDC UMBILICAL HERNIA [id number] 05/22/2014 12:07:00 05/22/2014 23:59:59 CLS Outpatient JOHNIE TAYLOR MD [facility] PREOP UMBILICAL HERNIA [id number] 03/27/2014 11:56:00 03/27/2014 23:59:59 CLS Outpatient JOHNIE TAYLOR MD [facility] PREOP UMBILICAL HERNIA [id number] 01/13/2014 22:00:00 01/14/2014 17:00:00 DIS Inpatient VERO VERDUGO DO [facility] CSD CHEST PAIN,HTN [id number] 10/02/2013 09:14:00 10/02/2013 23:59:59 CLS Outpatient ANTIONE LALA [facility] CARD CAD,COPD, ANXIETY,HTN [id number] 09/17/2013 09:15:00 09/17/2013 23:59:59 CLS Outpatient LINDA VELASCO APRN [facility] RAD SIX MONTH F/U [id number] 09/02/2013 20:46:00 09/02/2013 22:24:00 DIS Emergency CHRISTOPHER THIBODEAUX, GARCÍA Lorenzana [facility] ER HEARTBURN [id number] 04/16/2013 20:35:00 04/17/2013 22:30:00 DIS Outpatient JERRY THIBODEAUX, JENIFER La [facility] CATH CHEST PAIN,CHF [id number] 03/04/2013 03:49:00 03/04/2013 04:46:00 DIS Emergency GIACOMO LINDO MD [facility] ER FALL, HEAD INJ [id number] 07/03/2015 11:51:00 Document Registration [id number] 07/03/2015 11:51:00 Document Registration [id number] 07/03/2015 11:51:00 Document Registration [id number] 07/03/2015 11:51:00 Document Registration [id number] 01/21/2015 01:00:00 Document Registration [id number] 01/15/2015 06:10:00 Document Registration [id number] 01/31/2013 20:15:00 Document Registration [id number] 08/06/2012 13:54:00 Document Registration [id number] 05/25/2010 20:16:00 Document Registration [id number] 07/03/2015 11:53:45 ACT Document Registration
[2018-02-14 00:59] VITALS: BP 180/95
--- NOTE | 2018-02-14 02:08 | ED Neurological Problem ---
General Chief Complaint: Dizziness/Syncope Stated Complaint: DIZZINESS Nursing Triage Note: PT TO ED 9 PER W/C W/ DAUGHTER FOR C/O DIZZINESS ONSET EARLIER THIS EVENING AFTER "HANDLING HER PILLS". PT REPORTS SIMILAR EVENT EARLIER THIS WEEK. DENIES N/V, CP AT THIS TIME. ALSO REPORTS MIGRAINES X2 THIS WEEK WHICH PT STATES IS "UNUSUAL" FOR HER. Nursing Sepsis Screen: No Definite Risk Source: patient, family Exam Limitations: no limitations History of Present Illness Date Seen by Provider: Feb 13, 2018 Time Seen by Provider: 23:00 Initial Comments The patient presents to the ER by private conveyance with her daughter and 2 grandchildren and a chief complaint that she last couple hours has been having some dizziness feeling the room spinning tonight. She says this happened about 3 days ago she woke up feeling dizzy after rolling over. She has no history of vertigo, BPPV, ear infection, discharge from the ears, pressure, fever, nausea, chills. She says she felt a little foggy in her thinking for the past week or so. She does have a history of a cardiac stent but no history of stroke or PA. She is on aspirin but not statin secondary to a history of leg pain. She is taking her blood pressure medicines and has no other neurologic symptoms of weakness, falls, numbness, facial droop, slurred speech. She is being followed by [facility] neurologist for her right parietal meningioma and was last imaged with an MRI June 2017. She denies dysuria or discharge. Allergies and Home Medications Allergies Coded Allergies: sulfabenzamide (Unverified Allergy, Mild, 03/27/12) erythromycin base (Verified Allergy, Unknown, 10/17/06) penicillin G (Verified Allergy, Unknown, 10/17/06) nitrofurantoin (Verified Adverse Reaction, Unknown, 07/02/16) Possible cause of acute hepatitis Home Medications Acetaminophen 325 Mg Tablet, 650 MG PO Q4H PRN for PAIN-MILD, (Reported) TAKES 2 (325MG) TABLETS Albuterol Sulfate 1 Puff Puff, 2 PUFF IH QID PRN for SHORTNESS OF BREATH, ( Reported) 1 PUFF = 90 MCG Aspirin 81 Mg Tablet.dr, 81 MG PO DAILY, (Reported) Bimatoprost 2.5 Ml Drops, 1 DROP OU HS, (Reported) Calcium Carbonate 500 Mg Tablet, 500-1,000 MG PO TID PRN for INDIGESTION, ( Reported) Calcium Carbonate/Vitamin D3 1 Each Tablet, 1 TAB PO DAILY, (Reported) Carboxymethylcellulose Sodium 15 Ml Drops, 1 DROP OU BID PRN for DRY EYES, ( Reported) Diltiazem HCl 180 Mg Cap.er.24h, 180 MG PO DAILY, (Reported) Fluticasone Propionate 16 Gm Burchard.susp, 2 SPRAYS NS BID, (Reported) Hydrocodone Bit/Acetaminophen 1 Each Tablet, 0.5-1 TAB PO Q4H PRN for PAIN- MODERATE, (Reported) Hydrocodone Bit/Acetaminophen 1 Each Tablet, 1-2 EACH PO Q4H Prescribed by: JOHNIE OLIVAREZ on 09/14/17 1108 Lecithin 1,200 Mg Capsule, 1,200 MG PO BID, (Reported) Losartan Potassium 25 Mg Tablet, 25 MG PO DAILY, (Reported) Magnesium Oxide 250 Mg Tablet, 250 MG PO DAILY, (Reported) Meloxicam 15 Mg Tablet, 15 MG PO HS, (Reported) Metformin HCl 500 Mg Tablet, 750 MG PO BID WITH MEALS, (Reported) TAKES 1 & 1/2 (500MG) TABLET Montelukast Sodium 10 Mg Tablet, 10 MG PO HS, (Reported) Multivitamin 1 Each Tablet, 1 TAB PO DAILY, (Reported) Nitroglycerin 0.4 Mg Tab.subl, 0.4 MG SL UD PRN for CHEST PAIN, (Reported) Zenda 3 Polyunsat Fatty Acids 1,000 Mg Cap, 1,000 MG PO HS, (Reported) Zenda 3 Polyunsat Fatty Acids 1,000 Mg Cap, 2,000 MG PO DAILY, (Reported) TAKES 2 (1000MG) CAPSULES Pantoprazole Sodium 40 Mg Tablet.dr, 40 MG PO DAILY, (Reported) Patient Home Medication List Home Medication List Reviewed: Yes Review of Systems Constitutional: No chills; dizziness; No fever Eyes: Denies Blindness, Denies Blurred Vision Ears, Nose, Mouth, Throat: denies ear pain, denies ear discharge Respiratory: No cough, No dyspnea on exertion, No short of breath Cardiovascular: No chest pain; Hx of Intervention; No palpitations; vascular heart diseas Gastrointestinal: No abdominal pain, No constipation, No diarrhea, No nausea, No vomiting Genitourinary: No discharge, No dysuria Past [id number]-Fnkbjp Hx Patient Social History Alcohol Use: Denies Use Recreational Drug Use: No Smoking Status: Never a Smoker 2nd Hand Smoke Exposure: Yes (AT WORK) Recent Foreign Travel: No Contact w/Someone Who Travel: No Recent Infectious Disease Expo: No Recent Hopitalizations: No Physical Abuse: No Sexual Abuse: No Mistreated: No Fear: No Immunizations Up To Date Tetanus Booster (TDap): Less than 5yrs Date of Pneumonia Vaccine: Jul 18, 2012 Date of Influenza Vaccine: Sep 04, 2017 Seasonal Allergies Seasonal Allergies: Yes Past Medical History Surgeries: Yes (CATH 2011,[id number], D&C 80', CHOLY 78', UMB HERNIA REPAIR) Abdominal, Cardiac, Coronary Stent, Eye Surgery, Gallbladder Respiratory: Yes (WEARS CPAP SOMETIMES AT HOME) Asthma, Sleep Apnea, COPD Currently Using CPAP: Yes Cardiac: Yes (STENT x1) Coronary Artery Disease, High Cholesterol, Hypertension Neurological: No Headaches /Migraines 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 Disorders: No Female 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 Disorders: 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 Sexually Transmitted Disease: No HIV/AIDS: No Genitourinary: No Gastrointestinal: Yes (SOME CONSTIPATION) Abdominal Hernia, Gastroesophageal Reflux Musculoskeletal: Yes Arthritis, Rheumatoid Arthritis Endocrine: Yes Diabetes, Non-Insulin dep HEENT: Yes Cataract, Glaucoma Cancer: No Psychosocial: No Nursing Suicide Risk Score: 0 Integumentary: Yes Psoriasis Blood Disorders: No Adverse Reaction/Blood Tranf: No Family Medical History Cancer 03 MOTHER, Cataract 03 MOTHER, Chest pain 03 FATHER, Congenital heart disease 03 FATHER, Congestive heart failure 03 FATHER, Family history: Arthritis 03 MOTHER, Family history: Asthma 03 MOTHER, Family history: Cardiovascular disease 03 FATHER, Family history: Coronary thrombosis 03 MOTHER, Family history: Diabetes mellitus 09 SISTER Family history: Hypertension 03 FATHER, 03 MOTHER, 09 SISTER 09 SISTER 09 SISTER 09 SISTER Family history: Thyroid disorder 03 MOTHER, Headache 03 FATHER, 03 MOTHER, 09 SISTER 09 SISTER 09 SISTER 09 SISTER Hearing loss 09 SISTER Heart disease 03 FATHER, Hypercholesterolemia 03 FATHER, 09 SISTER Myocardial infarction 03 FATHER, Parkinson's disease 03 MOTHER, Psychotic disorder 09 SISTER Stroke 09 SISTER Visual impairment 03 FATHER, 03 MOTHER, 09 SISTER 09 SISTER 09 SISTER 09 SISTER No Family History of: Abdominal aortic aneurysm Benigno's disease Alcoholism Aphasia Aphasia Cancer of colon Cystic fibrosis Dementia Dysphagia Family history: Allergy Family history: Alzheimer's disease Family history: Breast disease Family history: Gastrointestinal disease Family history: Glaucoma Family history: Osteoporosis Hereditary disease History of - anemia History of - disorder History of - respiratory disease History of drug abuse Human immunodeficiency virus (HIV) seropositivity Infertile Kidney disease Malignant neoplasm of lung Prostate cancer Seizure disorder Tuberculosis Physical Exam Vital Signs Vital Signs - First Documented 02/13/18 22:42 Temp 97.6 Pulse 79 Resp 18 B/P (MAP) 153/88 (109) Pulse Ox 96 O2 Delivery Room Air Capillary Refill : Less Than 3 Seconds General Appearance: WD/WN, no apparent distress HEENT: PERRL/EOMI, pharynx normal Neck: non-tender, supple, normal inspection Respiratory: chest non-tender, lungs clear, normal breath sounds, no respiratory distress, no accessory muscle use Cardiovascular: normal peripheral pulses, regular rate, rhythm Peripheral Pulses: 2+ Radial Pulses (R), 2+ Radial Pulses (L) Gastrointestinal: normal bowel sounds, non tender, soft 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, no motor/sensory deficits, alert, normal mood/affect, oriented x 3 Crainal Nerves: normal hearing, normal speech, PERRL; No abnormal speech, No facial asymmetry, No facial droop Coordination/Gait: normal finger to nose, normal gait, negative Romberg's sign Motor/Sensory: no motor deficit, no sensory deficit, no pronator drift, other ( negative for cerebellar deficits) Reflexes: 2+ Knee (R), 2+ Knee (L) Skin: normal color, warm/dry Progress/Results/Core Measures My Orders Orders - [facility] [address] Head Wo (02/13/18 23:25) Vital Signs/I&O 02/13/18 22:42 Temp 97.6 Pulse 79 Resp 18 B/P (MAP) 153/88 (109) Pulse Ox 96 O2 Delivery Room Air Blood Pressure Mean: 109 Progress Note : Time: 02:06 Progress Note Recent onset vertigo with no cerebellar or other neurologic symptoms. Her meningiomas not in the place where it would probably affect her cerebellum however given her age, comorbidities history of stent and being on Plavix we would go ahead and image her head to make sure there is not a bleed. If the CT imaging is normal and she can follow up outpatient for more workup of her peripheral vertigo. Urinalysis did demonstrate she has a urinary tract infection which could also be contributing to her vertigo as well as mental fogginess for the last week. Lawtell-Hallpike maneuver failed to read demonstrate any vertigo symptoms. She has not had any vertigo since entering the ER. Diagonstic Imaging: CT Plain Films/CT/US/NM/MRI: head Comments No acute findings on a noncontrast study. Reviewed: Reviewed by Me Departure Impression Primary Impression: Vertigo Additional Impression: Urinary tract infection Qualified Codes: N30.00 - Acute cystitis without hematuria Disposition: HOME, SELF-CARE Condition: Stable Departure-Patient Inst. Decision time for Depature: 02:07 Referrals: [facility] (PCP) Primary Care Physician Patient Instructions: Vertigo (a Type of Dizziness) (DC) Add. Discharge Instructions: Follow-up with your primary care provider this week or early next week. Take your antibiotics, Macrobid, as prescribed one capsule twice a day to completion. If you begin to have facial droop, slurred speech, numbness, worsening symptoms please return to the ER immediately. All discharge instructions reviewed with patient and/or family. Voiced understanding. Copy Copies To 1: VERO VERDUGO TITUS J Feb 14, 2018 02:08
[2018-02-14 02:10] LABS: BILIRUBIN,URINE NEGATIVE (NEGATIVE); CLARITY,URINE SLIGHTLY CLOUDY; COLOR,URINE AMBER; GLUCOSE, URINE (UA) NEGATIVE (NEGATIVE); KETONES,URINE NEGATIVE (NEGATIVE); LEUKOCYTE ESTERASE ,URINE 3+ (NEGATIVE); NITRITE,URINE NEGATIVE (NEGATIVE); PH,URINE 5 (5-9); PROTEIN,URINE 1+ (NEGATIVE); UROBILINOGEN,URINE NORMAL (NORMAL)
[2018-02-14 02:11] LABS: BACTERIA,URINE MODERATE /HPF; WBC,URINE 50-100 /HPF
--- NOTE | 2018-02-14 06:48 | Diagnostic Imaging Report ---
PROCEDURE: CT head without contrast. TECHNIQUE: Multiple contiguous axial images were obtained through the brain without the use of intravenous contrast. INDICATION: Dizziness COMPARISON: 09/14/2016 FINDINGS: The ventricles and cortical sulci are diffusely prominent. There is no midline shift or mass effect identified. There is no extra axial or intraparenchymal hemorrhage seen. Focal areas of decreased attenuation are seen in the subcortical and periventricular white matter. These likely represent chronic small vessel ischemic changes. The bony calvarium is intact. A 1.6 cm calcified meningioma is seen underlying the right parietal bone laterally. The paranasal sinuses are clear. IMPRESSION: 1. No acute intracranial hemorrhage. No CT evidence of acute territorial ischemia. 2. Nonspecific white matter changes most likely representing small vessel ischemic disease. 3. Generalized parenchymal volume loss. Dictated by: Dictated on workstation # [id number]
== END 2018-02-14 00:59 | disposition home or self-care (01) ==
LOC: EDUNIT# 22:33 → ER 22:34
DX: R42 Dizziness and giddiness (principal); N39.0 Urinary tract infection, site not specified; E11.9 Type 2 diabetes mellitus without complications; D32.0 Benign neoplasm of cerebral meninges; J44.9 Chronic obstructive pulmonary disease, unspecified; G43.909 Migraine, unspecified, not intractable, without status migrainosus; G47.30 Sleep apnea, unspecified; Z87.2 Personal history of diseases of the skin and subcutaneous tissue; Z87.19 Personal history of other diseases of the digestive system; Z79.82 Long term (current) use of aspirin; Z79.51 Long term (current) use of inhaled steroids; Z79.84 Long term (current) use of oral hypoglycemic drugs; Z95.5 Presence of coronary angioplasty implant and graft; Z88.2 Allergy status to sulfonamides; Z88.1 Allergy status to other antibiotic agents; Z88.0 Allergy status to penicillin
CPT/HCPCS: 70450; 81000; 87088

== ENCOUNTER 2018-04-18 05:51 | Outpatient (CLI) | payer MEDICARE, MEDICAID ==
[~2018-04-18] VITALS: Ht 165.1 cm; Wt 113.4 kg
[~2018-04-18 05:51] MED LIST changes: +CARB15DR OU; -CARB15DR74 OU; +METF500T5 PO
== END 2018-04-18 13:07 ==
LOC: PREOP 05:51
PROVIDERS: ATTEND Specialist
DX: Z01.818 Encounter for other preprocedural examination (principal)

== ENCOUNTER 2018-04-20 08:16 | Day surgery (SDC) | payer MEDICARE, MEDICAID ==
[~2018-04-20] VITALS: Ht 165.1 cm; Wt 113.4 kg
[2018-04-20 08:40] VITALS: BP 130/69
[2018-04-20] MEDS ORDERED: TROPICAMIDE 1% OPH SOLN (MYDRIACYL) 15 ML BTL OU ONE (08:45)
[2018-04-20] MEDS ORDERED: TETRACAINE 0.5% OPHTH SOLN 4 ML BTL (SINGLE DOSE ONLY) OU ONE (08:45)
[2018-04-20] MEDS ORDERED: PHENYLEPHRINE 10% OPHTH (NEO-SYN) 5 ML BTL OU ONE (08:45)
[2018-04-20] MEDS: TETRACAINE 0.5% OPHTH SOLN 4 ML BTL (SINGLE DOSE ONLY) OU PRN ×3 (08:48→08:55)
[2018-04-20] MEDS: TROPICAMIDE 1% OPH SOLN (MYDRIACYL) 15 ML BTL OU PRN ×3 (08:48→08:55)
[2018-04-20] MEDS: PHENYLEPHRINE 10% OPHTH (NEO-SYN) 5 ML BTL OU PRN ×3 (08:49→08:55)
--- OUTSIDE RECORDS SUMMARY | 2018-04-20 08:55 | XMS REPORT | Encounter Summary ---
Author Author [facility] Organization [facility] Address Unknown Phone Unavailable Care Team Providers Care Supervisor Blast Furnace Name Role Phone Aroldo Rios NP PCP Encounter Details Date Type Department Care Team Description 06/13/2017 Procedure [facility] Neuro[facility] [address] [place] [address] Social History Tobacco Use Types [...]
--- OUTSIDE RECORDS SUMMARY | 2018-04-20 08:55 | XMS REPORT | Clinical Summary ---
Author Author [facility] Organization [facility] Address Unknown Phone Unavailable Care Team Providers Care Wood Hacker Name Role Phone Aroldo Rios NP PCP Source Comments Some departments are not documenting in the electronic medical record. 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
--- OUTSIDE RECORDS SUMMARY | 2018-04-20 08:57 | XMS REPORT ---
Author Author REESE HEBERT [facility] Address [address] [place] [address] Care Team Providers Care Insurance Loss Assessor Name Role Phone REESE HEBERT Unavailable PROBLEMS Type Condition ICD9-CM Code WRE11-YT Code Onset Dates Condition Status SNOMED Code Problem DM w/o complication type II E11.9 Active 33976911 Problem Other seasonal allergic rhinitis J30.2 Active 959036251 Problem Essential hypertension I10 Active 89314402 Problem Type 2 diabetes mellitus without complication, unspecified intermediate manager insulin use status E11.9 Active 831407887 Problem Mass of right temporoparietal region G93.9 Active 454146191 Problem Chronic obstructive pulmonary disease, unspecified COPD type J44.9 Active 36187692 Problem Coronary artery disease involving kaibab coronary artery of kaibab heart without angina pectoris I25.10 Active 4633631624049 Problem Facial paresthesia R20.9 Active 02524730 Problem Elevated LFTs R79.89 Active 972048463 Problem Umbilical hernia without mention of obstruction or gangrene 553.1 Active 827602940 Problem Nontoxic multinodular goiter 241.1 Active 55977185 Problem Arthritis M19.90 Active 0537716 Problem Asthma, unspecified, with (acute) exacerbation 493.92 Active 013425214 Problem Facial contusion, initial encounter S00.83XA Active 153075503 Problem Other and unspecified hyperlipidemia 272.4 Active 13187879 Problem Abdominal pain, generalized R10.84 Active [id number] ALLERGIES No Information ENCOUNTERS Encounter Location Date Diagnosis [facility] [address] [facility] [id number] [place] [address] Jan, [facility] [address] [facility] [id number][place] [id number] Jan, DM w/o complication type II E11.9 [facility] [address] [facility] [id number][place] [id number] Dec, DM w/o complication type II E11.9 and Coronary artery disease involving kaibab coronary artery of kaibab heart without angina pectoris I25.[address] [place] [address] [id number] Sep, [place] [id number] [place] [address] [id number] Sep, Hypertension I10 ; Cardiomegaly I51.7 ; Athscl heart disease of kaibab coronary artery w/o ang pctrs I25.10 ; Hyperlipidemia E78.5 ; Encounter for screening colonoscopy Z12.11 ; BMI 40.0-44.9, adult Z68.41 and Encounter for immunization Z23 [facility] [id number] [id number] Aug, [address] [place] [address] [id number] Jul, DM w/o complication type II E11.9 [place] [id number] [place] [address] [id number] Jun, DM w/o complication type II E11.9 ; Type 2 diabetes mellitus without complication, unspecified intermediate manager insulin use status E11.9 ; Mass of right temporoparietal region G93.9 ; Essential hypertension I10 and Arthritis M19.90 [address] [place] [address] [id number] Jun, Type 2 diabetes mellitus without complication, unspecified senior care insulin use status E11.9 and Mass of right temporoparietal region G93.9 [address] [place] [address] [id number] Jan, Mass of right temporoparietal region G93.9 [address] [place] [address] [id number] Jan, [place] [id number] [place] [address] [id number] Nov, Chronic obstructive pulmonary disease, unspecified COPD type J44.9 ; Essential hypertension I10 and DM w/o complication type II E11.9 [place] [id number] [place] [address] [id number] Oct, UTI symptoms R39.9 ; Encounter for immunization Z23 ; Acute low back pain without sciatica, unspecified back pain laterality M54.5 and Hematuria, gross R31.0 [facility] [address] [id number] Sep, Facial paresthesia R20.9 [facility] [address] [id number] Sep, Mass of right temporoparietal region G93.9 [facility] [address] [id number] Sep, 2016 [facility] [address] [id number] Sep, Mass of right temporoparietal region G93.9 [facility] [address] [id number] Sep, [facility] [address] [id number] Jul, Essential hypertension I10 ; DM w/o complication type II E11.9 ; Chronic obstructive pulmonary disease, unspecified COPD type J44.9 and Elevated LFTs R79.89 [facility] [address] [address] Jul, [facility] [address] [place] [id number] [place] [address] [id number] Jun, Transaminitis R74.0 [facility] [address] [id number] 5414 Jun, Transaminitis R74.0 [facility] [address] [id number] [place] [address] [id number] Apr, Essential hypertension I10 ; DM w/o complication type II E11.9 ; Other seasonal allergic rhinitis J30.2 ; Chronic obstructive pulmonary disease, unspecified COPD type J44.9 and Coronary artery disease involving kaibab coronary artery of kaibab heart without angina pectoris I25.10 [facility] [address] [place] [id number] [place] [address] [id number] Apr, Essential hypertension I10 and Atherosclerosis of kaibab coronary artery of kaibab heart without angina pectoris I25.10 [facility] [place] [id number], [place] [id number] Jan, [facility] [place] [address] [id number] [place] [address] [id number] Dec, DM w/o complication type II E11.9 ; Arthritis M19.90 ; Atherosclerosis of kaibab coronary artery of kaibab heart without angina pectoris I25.10 and Essential hypertension I10 [facility] [address] [place] [id number] [place] [address] [id number] Dec, [facility] [id number] [place] [address] [id number] Nov, [facility] [address] [place] [id number] [place] [address] [id number] Nov, [facility] [address] [place] [id number] [place] [address] [id number] Nov, [facility] [address] [address] [address] [id number] [place] [address] [id number] Oct, [address] [place] [address] [id number] Oct, Diabetes mellitus without mention of complication, type II or unspecified type, not stated as uncontrolled 250.00 [facility] [address] [address] [facility] [id number] [place] [address] [id number] Sep, [address] [place] [address] [id number] Aug, Abdominal pain, generalized R10.84 and DM w/o complication type II E11.9 [facility] [id number] [place] [address] [id number] Aug, [address] [place] [address] [id number] Aug, Diabetes mellitus without mention of complication, type II or unspecified type, not stated as uncontrolled 250.00 ; Encounter for immunization Z23 and Facial contusion, initial encounter S00.83XA [facility] [place] [id number] [place] [address] [id number] Aug, Facial contusion, initial encounter S00.83XA ; Left wrist pain M25.532 and Arthritis M19.90 [facility] [place] [id number], [place] [id number] Jun, [facility] [place] [address] [place] [id number] [place] [address] [id number] Jun, [facility] [place] [id number] [place] [address] [id number] May, Diabetes mellitus without mention of complication, type II or unspecified type, not stated as uncontrolled 250.00 ; Rhinitis 472.0 and HTN (hypertension) 401.9 [facility] [place] [id number] [place] [address] [id number] Apr, [facility] [place] [address] [place] [id number] [place] [address] [id number] Feb, [facility] [address] [id number] [place] [address] 27710- 2546 Feb, [facility] [address] [id number] [place] [address]- 2356 Feb, [facility] [place] [id number] [place] [address] [id number] Jan, [facility] [address] [id number] [place] [address] 25707- 9296 Jan, [facility] [address] [id number] [place] [address] [id number] Jan, [facility] [address] [place] [address] 75824- 2546 Jan, [facility] [place] [id number], [place] [id number] Nov, [facility] [address] [place] [id number] [place] [address] 72836- 2546 Nov, [facility] [id number] [place] [address] [id number] Nov, [facility] [address] [place] [id number] [place] [address] 70838- 7816 Nov, [facility] [address] [id number] [place] [address] 51890- 3096 Nov, [facility] [place] [facility] [address] [facility] [id number] [place] [address] 38[address] Nov, [facility] [place] [address] [id number], [place] [id number] Oct, [facility] [place] [facility] [address] [facility] [id number] [place] [address]- 8196 Oct, [facility] [place] [address] [id number], [place] [id number] Oct, [facility] [place] [facility] [address] [facility] [id number] [place] [address]- 0406 Oct, [facility] [place] [facility] [address] [facility] [id number] [place] [address]- 6235 Sep, [facility] [place] [address] [facility] [id number], [place] [id number] Sep, [facility] [place] [facility] [address] [facility] [id number] [place] [address]- 4806 Sep, [facility] [place] [address] [facility] [id number], [place] [id number] Aug, [facility] [place] [facility] [address] [facility] [id number] [place] [address]- 9[address] Aug, [facility] [place] [address] [facility] [id number], [place] [id number] Aug, [facility] [place] [facility] [address] [facility] [id number] [place] [address]- 4760 Aug, [facility] [place] [facility] [address] [facility] [id number] [place] [address]- 7564 Jul, [facility] [place] [address] [facility] [id number], [place] [id number] Jul, [facility] [place] [facility] [address] [facility] [id number] [place] [address]- 6806 Jul, [facility] [place] [address] [facility] [id number], [place] [id number] Jul, [facility] [place] [facility] [address] [facility] [id number] [place] [address]- 8886 Jul, [facility] [place] [facility] [address] [facility] [id number] [place] [address]- 3942 Jun, [facility] [place] [facility] [address] [facility] [id number] [place] [address]- 7906 Jun, [facility] [place] [address] [facility] [id number] [place] [id number] Jun, [facility] [place] [facility] [address] [facility] [id number] [place] [address]- 3286 Jun, [facility] [place] [address] [facility] [id number] [place] [id number] May, [facility] [place] [facility] [address] [facility] [id number] [place] [address]- 9316 May, [facility] [place] [address] [facility] [id number], [place] [id number] May, [facility] [place] [facility] [address] [facility] [id number] [place] [address]- 1311 May, [facility] [place] [facility] [address] [facility] [id number] [place] [address]- 3231 May, [facility] [place] [address] [facility] [id number], [place] [id number] Apr, [facility] [place] [facility] [address] [facility] [id number] [place] [address]- 4636 Apr, [facility] [place] [address] [facility] [id number], [place] [id number] March, [facility] [place] [facility] [address] [facility] [id number] [place] [address]- 3389 March, [facility] [place] [facility] [address] [facility] [id number] [place] [address]- 4876 March, [facility] [place] [facility] [address] [facility] [id number] [place] [address]- 4996 March, [facility] [place] [address] [facility] [id number], [place] [id number] March, [facility] [place] [facility] [address] [facility] [id number] [place] [address]- 7916 March, [facility] [place] [address] [facility] [id number] [place] [id number] March, [facility] [place] [facility] [address] [facility] [id number] [place] [address]- 2596 March, [facility] [place] [address] [facility] [id number] [place] [id number] Feb, [facility] [place] [facility] [address] [facility] [id number] [place] [address]- 3154 Feb, [facility] [place] [address] [facility] [id number] [place] [id number] Feb, [facility] [place] [facility] [address] [place] [id number] [address]- 4726 Feb, [facility] [place] [address] [facility] [id number], [place] [id number] Feb, [facility] [place] [facility] [address] [facility] [id number] [place] [address]- 8975 Feb, [facility] [place] [address] [facility] [id number], [place] [id number] Jan, [facility] [place] [facility] [address] [facility] [id number] [place] [address]- 0896 Jan, [facility] [place] [address] [facility] [id number], [place] [id number] Dec, [facility] [place] [facility] [address] [facility] [id number] [place] [address]- 6976 Dec, [facility] [place] [facility] [address] [facility] [id number] [place] [address]- 0915 Dec, [facility] [place] [address] [facility] [id number], [place] [id number] Nov, [facility] [place] [facility] [address] [facility] [id number] [place] [address]- 3025 Nov, [facility] [place] [address] [facility] [id number], [place] 776284340 Nov, [facility] [address] [facility] [id number] [place] [address]- 2726 Nov, [facility] [place] [facility] [address] [facility] [id number] [place] [address]- 6626 Nov, [facility] [place] [address] [facility] [id number], [place] [id number] Nov, [facility] [place] [facility] [address] [facility] [id number] [place] [address]- 7156 Nov, [facility] [place] [address] [facility] [id number], [place] 628831669 Oct, [facility] [place] [facility] [address] [facility] [id number] [place] [address]- 5936 Oct, [facility] [place] [facility] [address] [facility] [id number] [place] [address]- 2456 Oct, [facility] [place] [facility] [address] [facility] [id number] [place] [address]- 4166 Oct, [facility] [place] [facility] [address] [facility] [id number] [place] [address]- 8606 Oct, [facility] [place] [address] [facility] [id number], [place] [id number] Oct, [facility] [place] [facility] [address] [facility] [id number] [place] [address]- 2546 Oct, [facility] [place] [address] [facility] [id number], [place] [id number] Oct, [facility] [place] [facility] [address] [id number] [place] [address]- 2546 Oct, [facility] [place] [address] [facility] [id number], [place] [id number] Sep, [facility] [place] [facility] [address] [facility] [id number] [place] [address]- 2546 Sep, [facility] [place] [facility] [address] [facility] [id number] [place] [address]- 2546 Aug, [facility] [place] [address] [id number] [place] [id number] Aug, [facility] [address] [facility] [id number] [place] [address]- 9220 Aug, [facility] [address] [facility] [id number] [place] [address]- 9844 Aug, [facility] [address] [facility] [id number] [place] [address]- 3647 Aug, [facility] [place] [address] [id number], [place] [id number] Aug, [facility] [address] [facility] [id number] [place] [address]- 3805 Aug, [facility] [place] [address] [id number] [place] [id number] Aug, [facility] [address] [facility] [id number] [place] [address]- 0163 Aug, [facility] [place] [address] [id number] [place] [id number] Jul, [facility] [place] [address] [id number] [place] [id number] Jul, [facility] [place] [address] [id number] [place] [id number] May, [facility] [place] [address] [id number] [place] [id number] May, [facility] [place] [address] [id number] [place] [id number] May, [facility] [place] [address] [id number] [place] [id number] May, [facility] [place] [address] [id number] [place] 692125987 Apr, [facility] [place] [address] [id number] [place] [id number] Apr, [facility] [place] [address] [id number] [place] [id number] March, [facility] [place] [address] [id number] [place] [id number] March, [facility] [place] [address] [id number] [place] [id number] March, [facility] [address] [facility] [id number] [place] [address]- 2546 Feb, [facility] [place] [address] [id number] [place] [id number] Feb, [facility] [place] [address] [id number] [place] [id number] Feb, [facility] [place] [address] [id number] [place] [id number] Jan, [facility] [place] [address] [id number] [place] [id number] Jan, [facility] [place] [address] [id number] [place] 680900068 Jan, [facility] [place] [address] [id number] [place] 465082460 Jan, [facility] [place] [address] [id number] [place] 857807942 Jan, [facility] [place] [address] [id number] [place] 459803890 Dec, [facility] [place] [address] [id number] [place] [id number] Dec, [facility] [address]00565100[place] [address]- 3315 15 Dec, 2012 [facility] [address]65100[place] [address]- 2541 14 Dec, 2012 [facility] [place] [address] [id number] [place] [id number] Dec, [facility] [place] [address] [id number] [place] 035984594 Dec, [facility] [place] [address] [id number] [place] [id number] Nov, [facility] [place] [address] [id number] [place] [id number] Nov, [facility] [place] [address] [id number] [place] [id number] Nov, [facility] [place] [address] [id number] [place] [id number] Nov, [facility] [place] [facility] [address] [id number] [place] [address]- 2038 Oct, [facility] [place] [facility] [address] [facility] [id number] [place] [address]- 5856 Sep, [facility] [place] [address] [id number] [place] 736010039 Sep, [facility] [place] [address] [id number] [place] [id number] Sep, [facility] [place] [facility] [address] [id number] [place] [address]- 5829 Sep, [facility] [place] [address] [id number] [place] [id number] Sep, [facility] [place] [address] [id number] [place] [id number] Sep, [facility] [place] [facility] [address] [facility] [id number] [place] [address]- 4845 Sep, [facility] [place] [facility] [address] [facility] [id number] [place] [address]- 1045 Sep, [facility] [place] [address] [id number], [place] [id number] Sep, [facility] [place] [address] [id number], [place] [id number] Sep, [facility] [place] [address] [id number], [place] [id number] Sep, [facility] [place] [facility] [address] [facility] [id number] [place] [address]- 8487 Sep, [facility] [place] [facility] [address] [facility] [id number] [place] [address]- 7635 Sep, [facility] [place] [facility] [address] [facility] [id number] [place] [address]- 3822 Sep, [facility] [place] [address] [id number] [place] [id number] Aug, [facility] [address] [id number] [place] [address]- 2893 Aug, [facility] [place] [address] [id number] [place] [id number] Aug, [facility] [address] [facility] [id number] [place] [address]- 8827 Aug, [facility] [place] [address] [id number] [place] [id number] Aug, [facility] [address] [id number] [place] [address]- 6802 Aug, [facility] [place] [address] [id number] [place] [id number] Aug, [facility] [address] [id number] [place] [id number] Aug, [facility] [address] [id number] [place] [id number] Jul, [facility] [address] [id number] [place] [id number] Jul, [facility] [address] [id number] [place] [id number] Jun, [facility] [address] [id number] [place] [id number] Jun, [facility] [address] [id number] [place] [id number] May, [facility] [address] [id number][place] [id number] May, [facility] [address] [id number] [place] [id number] May, [facility] [address] [facility] [id number] [place] [address] Apr, [facility] [address] [id number] [place] [id number] March, [facility] [address] [id number] [place] [id number] March, [facility] [address] [id number] [place] [id number] Mar, 2012 [facility] [address] [id number] [place] [id number] 15 Jan, 2012 [facility] [address] [id number] [place] [id number] 13 Nov, 2011 [facility] [place] [facility] [address] [id number] [place] [address] 23 Oct, 2011 [facility] [place] [facility] [address] [id number] [place] [address] 16 Oct, 2011 [facility] [place] [facility] [address] [id number] [place] [address] 16 Oct, 2011 [facility] [place] [facility] [address] [id number] [place] [address] Sep, [facility] [place] [facility] [address] [facility] [id number] [place] [address] Sep, [facility] [place] [facility] [address] [id number] [place] [address] Jan, [facility] [place] [facility] [address] [id number] [place] [address] March, [facility] [place] [facility] [address] [id number] [place] [address] Jan, [facility] [place] [facility] [address] [id number] [place] [address] 18 Oct, 2009 [facility] [place] [facility] [address] [id number] [place] [address] 15 Oct, 2009 [facility] [place] [facility] [address] [id number] [place] [address] [address] 17 Sep, 2009 [facility] [place] [facility] [address] [facility] [id number] [place] [address] Sep, [facility] [place] [facility] [address] [id number] [place] Sep, [facility] [place] [facility] [address] [facility] [id number] [place] [id number] Sep, [facility] [address] [facility] [id number] [place] [address] Sep, [facility] [address] [facility] [id number] [place] [address] Sep, [facility] [address] [facility] [id number] [place] [address] March, IMMUNIZATIONS No Known Immunizations SOCIAL HISTORY Never Assessed REASON FOR VISIT lab faxed for MRI PLAN OF CARE VITAL SIGNS MEDICATIONS Unknown Medications RESULTS No Results PROCEDURES Procedure Date Ordered Result Body Site LAB NOT BILLED BY [facility] Jun 12, 2017 INSTRUCTIONS MEDICATIONS ADMINISTERED No Known Medications MEDICAL (GENERAL) HISTORY Type Description Date Medical History hyperlipidemia Medical History type II diabetes Medical History chronic obstructive pulmonary disease (COPD) Medical History hernia-umbilical Medical History obesity Medical History Arthritis Medical History sleep apnea-DX: 02/[address] Storey Medical History Thyroid disorder-found 2--8 mm nodules-favored to be realted to multinodular goiter in 04/18 Medical History coronary artery disease-s/p stenting of the diagonal cornorary artery-03/27/[address] 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 To) 04/18 Surgical History Heart cath-EF-65% (Dr. Gagnon/Les[facility]) April & 2012 Surgical History cholecystectomy 1977 Surgical History Breast biopsy-fibrous tumor removed 1967 Surgical History umbilical hernia 09/2017 Surgical History colonoscopy 09/2017 Hospitalization History umbilical hernia surgery x's, didn't heel correctly June 03 2014 Hospitalization History Hosptialized at [facility] and DX with COPD 07/18 Hospitalization History [facility] for a UTI 05/2017 Hospitalization History Chest pain-[facility] 08/20/17
--- OUTSIDE RECORDS SUMMARY | 2018-04-20 08:58 | XMS REPORT ---
Author Author RENARD SEXTON Organization [facility] Address [address] [place] [address] Care Team Providers Care Finance Specialist Name Role Phone RENARD SEXTON Unavailable PROBLEMS Type Condition ICD9-CM Code NNS03-UR Code Onset Dates Condition Status SNOMED Code Problem DM w/o complication type II E11.9 Active 60992659 Problem Other seasonal allergic rhinitis J30.2 Active 060672756 Problem Essential hypertension I10 Active 81711089 Problem Type 2 diabetes mellitus without complication, unspecified prison insulin use status E11.9 Active 992765890 Problem Mass of right temporoparietal region G93.9 Active 112602124 Problem Chronic obstructive pulmonary disease, unspecified COPD type J44.9 Active 69934236 Problem Coronary artery disease involving [place] coronary artery of [place] heart without angina pectoris I25.10 Active 5580971674922 Problem Facial paresthesia R20.9 Active 50589176 Problem Elevated LFTs R79.89 Active 594142094 Problem Asthma, unspecified, with (acute) exacerbation 493.92 Active 989380862 Problem Facial contusion, initial encounter S00.83XA Active 412288761 Problem Arthritis M19.90 Active 3572955 Problem Umbilical hernia without mention of obstruction or gangrene 553.1 Active 090608623 Problem Abdominal pain, generalized R10.84 Active 196976513 ALLERGIES Substance Reaction Event Type Date Status SulfADIAZINE rash Drug Allergy Sep, Active Lisinopril cough Drug Allergy Sep, Active Erythromycin rash Drug Allergy Sep, Active Ampicillin rash Drug Allergy Sep, Active ENCOUNTERS Encounter Location Date Diagnosis [facility] [address] [facility] [id number] [id number] March, DM w/o complication type II E11.[address] [id number][place] [phone] March, Medicare annual wellness visit, initial Z00.00 ; Chronic obstructive pulmonary disease, unspecified COPD type J44.9 ; Type 2 diabetes mellitus without complication, unspecified prison insulin use status E11.9 ; Coronary artery disease involving [place] coronary artery of [place] heart without angina pectoris I25.10 ; Essential hypertension I10 ; Arthritis M19.90 ; BMI 40.0-44.9 , adult Z68.41 and Encounter for immunization Z23 [facility] [id number] [place] [address] [id number] Feb, [facility] [id number] [place] [address]- [address] Jan, [place] [id number] [place] [address] [id number] Jan, DM w/o complication type II E11.9 [facility] [id number] [place] [address] [id number] Dec, DM w/o complication type II E11.9 and Coronary artery disease involving [place] coronary artery of [place] heart without angina pectoris I25.10 [facility] [id number], [place] [id number] Sep, [place] [id number] [place] [address] [id number] Sep, Hypertension I10 ; Cardiomegaly I51.7 ; Athscl heart disease of [place] coronary artery w/o ang pctrs I25.10 ; Hyperlipidemia E78.5 ; Encounter for screening colonoscopy Z12.11 ; BMI 40.0-44.9, adult Z68.41 and Encounter for immunization Z23 [facility] [id number], [place] [id number] Aug, [facility] [address] [place] [id number][place] [id number] Jul, DM w/o complication type II E11.9 [facility] [id number] [place] [address] [id number] Jun, DM w/o complication type II E11.9 ; Type 2 diabetes mellitus without complication, unspecified prison insulin use status E11.9 ; Mass of right temporoparietal region G93.9 ; Essential hypertension I10 and Arthritis M19.90 [facility] [id number], [place] [id number] Jun, 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 diabetes mellitus without complication, 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 and Mass of right temporoparietal region G93.9 [facility] [address] [place] [id number] [place] [address] [id number] Jan, Mass of right temporoparietal region G93.9 [facility] [id number] [place] [address] [id number] Jan, [facility] [id number] [place] [address] [id number] Nov, Chronic obstructive pulmonary disease, unspecified COPD type J44.9 ; Essential hypertension I10 and DM w/o complication type II E11.9 [facility] [address] [place] [id number] [place] [address] [id number] Oct, UTI symptoms R39.9 ; Encounter for immunization Z23 ; Acute low back pain without sciatica, unspecified back pain laterality M54.5 and Hematuria, gross R31.0 [facility] [id number] [place] [address] [id number] Sep, Facial paresthesia R20.9 [facility] [id number] [place] [address] [id number] Sep, Mass of right temporoparietal region G93.9 [facility] [id number] [place] [address] [id number] Sep, [facility] [id number] [place] [address] [id number] Sep, Mass of right temporoparietal region G93.9 [facility] [id number] [place] [address] [id number] Sep, [facility] [id number] [place] [address] [id number] Jul, Essential hypertension I10 ; DM w/o complication type II E11.9 ; Chronic obstructive pulmonary disease, unspecified COPD type J44.9 and Elevated LFTs R79.89 [facility] [address] [place] [address] [id number], [place] [address] Jul, [facility] [address] [id number], [place] [id number] Jun, Transaminitis R74.0 [facility] [address] [place] [address] [id number] [address]- [address] Jun, Transaminitis R74.0 [facility] [id number], [place] [id number] Apr, Essential hypertension I10 ; DM w/o complication type II E11.9 ; Other seasonal allergic rhinitis J30.2 ; Chronic obstructive pulmonary disease, unspecified COPD type J44.9 and Coronary artery disease involving [place] coronary artery of [place] heart without angina pectoris I25.10 [facility] [id number], [place] [id number] Apr, Essential hypertension I10 and Atherosclerosis of [place] coronary artery of [place] heart without angina pectoris I25.10 [facility] [id number], [place] [id number] Jan, [facility] [id number], [place] [id number] Dec, DM w/o complication type II E11.9 ; Arthritis M19.90 ; Atherosclerosis of [place] coronary artery of [place] heart without angina pectoris I25.10 and Essential hypertension I10 [facility] [address] [id number], [place] [id number] Dec, [facility] [id number], [place] [id number] Nov, [facility] [id number], [place] [id number] Nov, [facility] [address] [facility] [id number], [place] [phone] Nov, [facility] [place] [address] [facility] [id number] [place] [id number] Oct, [facility] [address] [facility] [id number], [place] [id number] Oct, Diabetes mellitus without mention of complication, type II or unspecified type, not stated as uncontrolled 250.[address] [facility] [address] [id number] [id number] Sep, [address] [place] [address] [id number] Aug, Abdominal pain, generalized R10.84 and DM w/o complication type II E11.[id number] [place] [address] [id number] Aug, [place] [id number] [place] [address] [id number] Aug, Diabetes mellitus without mention of complication, type II or unspecified type, not stated as uncontrolled 250.00 ; Encounter for immunization Z23 and Facial contusion, initial encounter S00.83XA [place] [id number] [place] [address] [id number] Aug, Facial contusion, initial encounter S00.83XA ; Left wrist pain M25.532 and Arthritis M19.[address] [place] [address] [id number] Jun, [address] [place] [address] [id number] Jun, [place] [id number] [place] [address] [id number] May, Diabetes mellitus without mention of complication, type II or unspecified type, not stated as uncontrolled 250.00 ; Rhinitis 472.0 and HTN (hypertension) 401.[address] [place] [address] [id number] Apr, [place] [id number] [place] [address] [id number] Feb, [facility] [id number] [place] [address] 7[address]- 6[address] Feb, [facility] [id number] [place] [address]- 2541 Feb, [id number] [place] [address] [id number] Jan, [facility] [address] [place] [address]- 25[address] Jan, [facility] [place] [address] [facility] [id number] [place] [id number] Jan, [facility] [place] [facility] [address] [facility] [id number], [place] [address]- 2546 Jan, [facility] [place] [address] [facility] [id number], [place] [id number] Nov, [facility] [place] [facility] [address] [facility]NOTE 3] [id number][place] [address]- 3916 Nov, [facility] [place] [address] [facility] [id number], [place] [id number] Nov, [facility] [place] [facility] [address] [facility]NOTE 3] [id number], [place] [address]- 2546 Nov, [facility] [place] [facility] [id number], [place] [address] 2546 Nov, [facility] [place] [facility] [address]00565100[place], [place] [address]- 4536 Nov, [facility] [place] [address] [facility] [id number], [place] [phone] Oct, [facility] [place] [facility] [address]00565100[place], [place] [address]- 7136 Oct, [facility] [place] [address] [place] [address] [id number], [place] [id number] Oct, [facility] [place] [facility] [address]00565100[place], [place] [address]- 2546 Oct, [facility] [place] [facility] [address] [facility] 3] [id number][place] [address]- 2546 Sep, [facility] [place] [address] [facility] [id number], [place] [id number] Sep, [facility] [place] [facility] [address] [facility]NOTE 3] [id number], [place] [address]- 2546 Sep, [facility] [place] [address] [facility] [id number], [place] [id number] Aug, [facility] [place] [facility] [address] [id number] [place] [address]- 3380 Aug, [facility] [place] [address] [facility] [id number] [place] [id number] Aug, [facility] [place] [facility] [address] [facility]NOTE 3] [id number] [place] [address]- 2342 Aug, [facility] [place] [facility] [address] [facility] 3] [id number] [place] [address]- 0492 Jul, [facility] [place] [address] [facility] [id number] [place] [id number] Jul, [facility] [place] [facility] [address] [facility] 3] [id number] [place]- 5578 Jul, [facility] [place] [address] [facility] [id number] [place] [id number] Jul, [facility] [place] [facility] [address] [facility]NOTE 3] [id number][place] [address]- 7[address] Jul, [facility] [place] [facility] [address] [facility] 3] [id number], [place] [address]- 0519 Jun, [facility] [place] [facility] [address] [facility]NOTE 3] [id number], [place] [address]- 5353 Jun, [facility] [place] [address] [facility] [id number], [place] [id number] Jun, [facility] [place] [facility] [address] [facility] 3] [id number], [place] [address]- 5132 Jun, [facility] [place] [address] [facility] [id number], [place] [id number] May, [facility] [place] [facility] [address] [facility]NOTE 3] [id number] [place] [address]- 3327 May, [facility] [place] [address] [facility] [id number], [place] [id number] May, [facility] [place] [facility] [address] [facility] 3] [id number][place] [address]- 2143 May, [facility] [place] [facility] [address] [facility] 3] [id number], [place] 95684940- 5594 May, [facility] [place] [address] [id number] [place] [id number] Apr, [facility] [place] [facility] [address] [id number] [place] [address]- 6816 Apr, [facility] [place] [address] [id number] [place] [id number] March, [facility] [place] [facility] [address] [id number] [place] [address]- 6740 March, [facility] [place] [facility] [address] [id number] [place] [address]- 0886 March, [facility] [place] [facility] [address] [id number] [place] [address]- 6849 March, [facility] [place] [address] [id number] [place] [id number] March, [facility] [place] [facility] [address] [facility]NOTE 3] [id number] [place] [address]- 1604 March, [facility] [place] [address] [id number] [place] [id number] March, [facility] [place] [facility] [address] [id number], [place] [address]- 6406 March, [facility] [place] [address] [id number], [place] [id number] Feb, [facility] [place] [facility] [address] [id number], [place] [address]- 3848 Feb, [facility] [place] [address] [id number] [place] [id number] Feb, [facility] [place] [facility] [address] [id number], [place] [address]- 5106 Feb, [facility] [place] [address] [id number] [place] [id number] Feb, [facility] [place] [facility] [address] [id number] [place] [address]- 3416 Feb, [facility] [place] [address] [id number], [place] [id number] Jan, [facility] [place] [facility] [address] [facility]NOTE 3] [id number] [place] [address]- 2546 Jan, [facility] [place] [address] [facility] [id number] [place] [id number] Dec, [facility] [place] [facility] [address] [place] [address] [id number] [place] [address]- 4656 Dec, [facility] [place] [facility] [address] [facility]NOTE 3] [id number] [place] [address]- 2546 Dec, [facility] [place] [address] [facility] [id number] [place] [id number] Nov, [facility] [place] [facility] [address] [facility]NOTE 3] [id number] [place] [address]- 0556 Nov, [facility] [place] [address] [address] [id number] [place] [id number] Nov, [facility] [place] [facility] [address] [id number], [place] [address]- 2976 Nov, [facility] [place] [facility] [address] [place] [address] [id number] [place] [address]- 4748 Nov, [facility] [place] [address] [facility] [id number] [place] [id number] Nov, [facility] [place] [facility] [address] [id number], [place] [address]- 4379 Nov, [facility] [place] [address] [id number], [place] [id number] Oct, [facility] [place] [facility] [address] [facility][NOTE 3] [id number], [place] [address]- 7366 Oct, [facility] [place] [facility] [address] [facility][NOTE 3] [id number] [place] [address]- 7349 Oct, [facility] [place] [facility] [address] [facility]NOTE 3] [id number] [place] [address]- 6846 Oct, [facility] [place] [facility] [address] [place] [address] [id number] [place] [address]- 6916 Oct, [facility] [place] [address] [facility] [id number], [place] 427710583 Oct, [facility] [place] [facility] [address] [facility][NOTE 3] [id number], [place] [address]- 2546 Oct, [facility] [place] [address] [facility] [id number], [place] 155514328 Oct, [facility] [address] [facility]NOTE 3] [id number][place] [address]- 2546 Oct, [facility] [place] [address] [facility] [id number], [place] 919901779 Sep, [facility] [place] [facility] [address] [facility]NOTE 3] [id number], [place] [address]- 2546 Sep, [facility] [place] [facility] [address] [id number], [place] [address]- 2546 Aug, [facility] [place] [id number], [place] 402420242 Aug, [facility] [place] [facility] [address]00565100[place], [place] [address]- 2546 Aug, [facility] [place] [facility] [address]00565100[place], [place] [address]- 7836 Aug, [facility] [place] [facility] [address]00565100[place], [place] [address]- 2546 Aug, [facility] [place] [address] [id number], [place] 135227793 Aug, [facility] [place] [facility] [address] [facility]NOTE 3] [id number], [place] [address]- 2546 Aug, [facility] [place] [address] [facility] [id number], [place] [id number] Aug, [facility] [place] [facility] [address] [facility][NOTE 3] [id number], [place] [address]- 2546 Aug, [facility] [place] [address] [facility] [id number], [place] [id number] Jul, [facility] [address] [facility] [id number], [place] [id number] Jul, [facility] [place] [address] [id number] [place] [id number] May, [facility] [place] [address] [id number] [place] [id number] May, [facility] [place] [address] [id number] [place] 048214631 May, [facility] [place] [address] [id number] [place] [id number] May, [facility] [place] [address] [id number] [place] 246955653 Apr, [facility] [place] [address] [id number] [place] [id number] Apr, [facility] [place] [address] [id number] [place] 145147692 March, [facility] [place] [address] [id number] [place] [id number] March, [facility] [place] [address] [id number] [place] [id number] March, [facility] [address] [facility]NOTE 3] [id number][place] [address]- 4106 Feb, [facility] [place] [address] [id number] [place] 506184210 Feb, [facility] [place] [address] [id number] [place] [id number] Feb, [facility] [place] [address] [id number] [place] [id number] Jan, [facility] [place] [address] [id number] [place] 397900451 Jan, [facility] [place] [address] [id number] [place] [id number] Jan, [facility] [place] [address] [id number] [place] 769754199 Jan, [facility] [place] [address] [id number] [place] 819963728 Jan, [facility] [place] [address] [id number] [place], [place] [id number] Dec, [facility] [place] [address] [id number] [place] 328525671 Dec, [facility] [place] [facility] [address]00565100[place], [place] [address]- 8063 Dec, [facility] [place] [facility] [address] [id number], [place] [address]- 2088 Dec, [facility] [place] [address] [id number] [place] [id number] Dec, [facility] [place] [address] [id number] [place] 110962686 Dec, [facility] [place] [address] [id number] [place] [id number] Nov, [facility] [place] [address] [id number] [place] 785472199 Nov, [facility] [place] [address] [id number] [place] 439738464 Nov, [facility] [place] [address] [id number], [place] 910724803 Nov, [facility] [place] [facility] [address]00565100[place], [place] [address]- 3290 Oct, [facility] [place] [facility] [address]00565100[place], [place] [address]- 0123 Sep, [facility] [place] [address] [id number], [place] 587254818 Sep, [facility] [place] [id number], [place] 728706771 Sep, [facility] [place] [facility] [address] [facility]NOTE 3] [id number], [place] [address]- 7935 Sep, [facility] [place] [address] [facility] [id number], [place] [id number] Sep, [facility] [place] [address] [facility] [id number], [place] 780969386 Sep, [facility] [place] [facility] [address]00565100[place], [place] [address]- 2881 Sep, [facility] [place] [facility] [address] [id number], [place] [address]- 2546 Sep, [facility] [place] [address] [id number], [place] [id number] Sep, [facility] [place] [address] [id number], [place] 860153037 Sep, [facility] [place] [address] [id number], [place] 995199591 Sep, [facility] [address] [facility]NOTE 3] [id number], [place] [address] Sep, [facility] [address] [facility][NOTE 3] [id number], [place] [address] Sep, [facility] [address] [facility][NOTE 3] [id number], [place] [address] Sep, [facility] [place] [address] [id number][place] [id number] Aug, [facility] [address] [facility][NOTE 3] [id number][place] [address] Aug, [facility] [place] [address] [facility] [id number][place] [id number] Aug, [facility] [address] [facility][NOTE 3] [id number], [place] [address] Aug, [facility] [place] [address] [id number][place] [id number] Aug, [facility] [address] [facility][NOTE 3] [id number], [place] [address] Aug, [facility] [place] [address] [id number], [place] [id number] Aug, [facility] [place] [address] [id number], [place] [id number] Aug, [facility] [place] [address] [id number], [place] [id number] Jul, [facility] [place] [address] [id number], [place] [id number] Jul, [facility] [place] [address] [id number], [place] [id number] Jun, [facility] [place] [address] [id number] [place] [id number] Jun, [facility] [place] [address] [id number] [place] [id number] May, [facility] [place] [address] [id number] [place] [id number] May, [facility] [place] [address] [id number] [place] [id number] May, [facility] [address] [facility][NOTE 3] [id number], [place] [address] Apr, [facility] [place] [address] [id number] [place] [id number] March, [facility] [place] [address] [id number] [place] [id number] March, [facility] [place] [address] [id number] [place] [id number] March, [facility] [place] [address] [id number] [place] [id number] Jan, [facility] [place] [address] [id number] [place] [id number] Nov, [facility] [id number], [place] [address] Oct, [facility] [id number], [place] [address] Oct, [facility] [id number] [place] [address] Oct, [facility] [address] [facility][NOTE 3] [id number], [place] [address] Sep, [facility] [id number] [place] [address] Sep, [facility] [id number], [place] [address] Jan, [facility] [id number] [place] [address] March, [facility] [id number], [place] [address] Jan, [facility] [id number], [place] [address] Oct, [facility] [id number], [place] [address] Oct, [facility] [id number], [place] [address] Sep, [facility] [id number], [place] [address] Sep, [facility] [id number] [place] [address] Sep, [facility] [facility] [id number] [address] Sep, [facility] [id number], [place] [address] Sep, [facility] [id number], [place] [address] Sep, [facility] [id number], [place] [address] March, IMMUNIZATIONS Vaccine Route Administration Date Status FLUARIX QUAD (3 AND UP) 2016 IM Intramuscular Sep 08, 2017 Administered SOCIAL HISTORY Never Assessed REASON FOR VISIT [facility] follow up-admitted for [id number]--chest pain/HTN--LILLI Carlin PLAN OF CARE Activity Details Follow Up 4 Weeks with PCP Johnson Reason:CHM HTN VITAL SIGNS Height 65 in 2017-09-08 Weight 254.4 lbs 2017-09-08 Temperature 98.7 degrees Fahrenheit 2017-09-08 Heart Rate 84 bpm 2017-09-08 Respiratory Rate 20 2017-09-08 BMI 42.33 kg/m2 2017-09-08 Blood pressure systolic 162 mmHg 2017-09-08 Blood pressure diastolic 80 mmHg 2017-09-08 MEDICATIONS Medication Instructions Dosage Frequency Start Date End Date Duration Status Lecithin 400 mg 3 Capsule by Oral route 1 time per day 12h 08 Sep, 2012 Active Metformin HCl 500 mg Orally 2 times a day 1 1/2 tablets 12h 0 days Active Diltiazem HCl ER Coated Beads 180 MG Orally Once a day 1 capsule 24h Active Magnesium 200 mg 1 Tablet by Oral route 1 time per day Sep, Active Flonase 50 mcg/actuation 1-2 sprays by Nasal route 2 times per day in each nostril 12h Jul, Active Acetaminophen 325 MG Orally every 4 hours 2 tablet as needed 4h Dec, Active Protonix 40 mg Orally Once a day 1 tablet 24h Jan, 0 days Active Multivitamin Adult - Active ProAir HFA 90 mcg/actuation inhale 2 puffs by Inhalation route every 4 hours as needed PRN shortness of breath/cough March, Active Meloxicam 15 mg Orally Once a day 1 tablet 24h Active Montelukast Sodium 10 MG Orally Once a day 1 tablet in the evening 24h Active Test strips ... as directed 24h Dec, Active Refresh Tears 0.5 % Ophthalmic 2 times a day 1 drop into affected eye as needed 12h Active Losartan Potassium 25 MG Orally Once a day 1 tablet 24h Active Fish Oil 300-1,000 mg 3 Tablet March, Active Bimatoprost 0.03 % Ophthalmic at bedtime 1 drop into both eyes Active Aspirin 81 MG Orally Once a day 1 Tablet 24h March, Active Nitroglycerin 0.4 mg Sep, Active RESULTS No Results PROCEDURES Procedure Date Ordered Result Body Site [facility] ESTABLISHED PATIENT Sep 08, 2017 SINGLE IMMUNIZATION ADMIN Sep 08, 2017 FLUARIX QUAD (3 AND UP) 2016Sep 08, 2017 INSTRUCTIONS MEDICATIONS ADMINISTERED No Known Medications [...] MRSA Medical History Pneumococcal given at [facility]-07/18 Medical History Monfilament 11/2016 Surgical History EGD-mild gastritis (Dr. To) 04/18 Surgical History Heart cath-EF-65% (Dr. Gagnon/Leslie) April & 2012 Surgical History cholecystectomy 1977 Surgical History Breast biopsy-fibrous tumor removed 1967 Surgical History umbilical hernia 09/2017 Surgical History colonoscopy 09/2017 Hospitalization History umbilical hernia surgery x's, didn't heel correctly June 03 2014 Hospitalization History Hosptialized at [facility] and DX with COPD 07/18 Hospitalization History [facility] for a UTI 05/2017 Hospitalization History Chest pain-VC 08/20/17
--- OUTSIDE RECORDS SUMMARY | 2018-04-20 09:05 | XMS REPORT | Continuity of Care Document ---
Author Author [facility] Address Unknown Phone Unavailable Allergies Active Description Code Type Severity Reaction Onset Reported/Identified Relationship to Patient Clinical Status Yes erythromycin base [id number] Drug Allergy Unknown N/A 10/17/2006 Yes penicillin G [id number] Drug Allergy Unknown N/A 10/17/2006 Yes ampicillin Drug Allergy N/A N/A 03/23/2009 Yes erythromycin Drug Allergy N/ A N/A 03/23/2009 Yes ampicillin Drug Allergy 03/23/2009 Yes erythromycin Drug Allergy 03/23/2009 Yes sulfa drug Drug Allergy 05/13/2011 Yes sulfabenzamide [id number] Drug Allergy Mild N/A 03/27/2012 Yes nitrofurantoin [id number] Drug Allergy Unknown N/A 07/02/2016 Medications There is no data. Problems Date Dx Coded Attending Type Code Diagnosis Diagnosed By 08/07/2008 JAG NEWELL MD 401.1 ESSENTIAL HYPERTENSION BENIGN 08/07/2008 JAG NEWELL MD 786.07 WHEEZING 08/07/2008 JAG NEWELL MD 840.9 SPRAIN/STRAIN SHOULDER/ARM 08/07/2008 JAG NEWELL MD 401.1 ESSENTIAL HYPERTENSION BENIGN 08/07/2008 JGA NEWELL MD 786.07 WHEEZING 08/07/2008 JAG NEWELL [...] VERO K 786.07 WHEEZING 08/07/2008 VERDUGO DO VEOR K 840.9 SPRAIN/STRAIN SHOULDER/ARM 08/07/2008 REESE HEBERT [...] VERO K 493.90 ASTHMA UNSPECIFIED 11/21/2008 HEBERT METAL FABRICATOR WELDER, REESE R 477.9 RHINITIS ALLERGIC 11/21/2008 HEBERT METAL FABRICATOR WELDER, REESE R 493.90 ASTHMA UNSPECIFIED 11/21/2008 JUSTICE DDS, HAILE D 477.9 RHINITIS ALLERGIC 11/21/2008 JUSTICE DDS, HAILE D 493.90 ASTHMA UNSPECIFIED 11/21/2008 VERDUGO DO, VERO K 477.9 RHINITIS ALLERGIC 11/21/2008 VERDUGO DO, VERO K 493.90 ASTHMA UNSPECIFIED 11/21/2008 VERDUGO DO, VERO K 477.9 RHINITIS ALLERGIC 11/21/2008 VERDUGO DO, VERO K 493.90 ASTHMA UNSPECIFIED 11/21/2008 HEBERT METAL FABRICATOR WELDER, REESE R 477.9 RHINITIS ALLERGIC 11/21/2008 HEBERT METAL FABRICATOR WELDER, REESE R 493.90 ASTHMA UNSPECIFIED 11/21/2008 HEBERT METAL FABRICATOR WELDER, REESE R 477.9 RHINITIS ALLERGIC 11/21/2008 HEBERT METAL FABRICATOR WELDER, REESE R 493.90 ASTHMA UNSPECIFIED 11/21/2008 VERDUGO DO, VERO K 477.9 RHINITIS ALLERGIC 11/21/2008 VERDUGO DO, VERO K 493.90 ASTHMA UNSPECIFIED 11/21/2008 HEBERT METAL FABRICATOR WELDER, REESE R 477.9 RHINITIS ALLERGIC 11/21/2008 HEBERT METAL FABRICATOR WELDER, REESE R 493.90 ASTHMA UNSPECIFIED 11/21/2008 VERDUGO DO, VERO K 477.9 RHINITIS ALLERGIC 11/21/2008 VERDUGO DO, VERO K 493.90 ASTHMA UNSPECIFIED 11/21/2008 HEBERT METAL FABRICATOR WELDER, REESE R 477.9 RHINITIS ALLERGIC 11/21/2008 HEBERT METAL FABRICATOR WELDER, REESE R 493.90 ASTHMA UNSPECIFIED 11/21/2008 VERDUGO DO, VERO K 477.9 RHINITIS ALLERGIC 11/21/2008 VERDUGO DO, VERO K 493.90 ASTHMA UNSPECIFIED 11/21/2008 HEBERT METAL FABRICATOR WELDER, REESE R 477.9 RHINITIS ALLERGIC 11/21/2008 HEBERT METAL FABRICATOR WELDER, REESE R 493.90 ASTHMA UNSPECIFIED 11/21/2008 LAUREN [...] DO K 682.9 CELLULITIS 03/27/2009 JUSTICE NAJERA, HIALE Rivero 682.9 CELLULITIS 03/27/2009 VERDUGO VERO GREY [...] OR REMOVAL OF NONSURGICAL WOUND DRESSING 04/06/2009 AJG NEWELL MD V58.30 ENCOUNTER FOR CHANGE OR [...] OR REMOVAL OF NONSURGICAL WOUND DRESSING 04/06/2009 VREO VERDUGO DO V58.30 ENCOUNTER FOR CHANGE OR [...] NEWELL MD 401.9 ESSENTIAL HYPERTENSION 05/05/2009 JAG NWEELL MD 599.0 URINARY TRACT INFECTION 05/05/2009 JAG [...] DO, VERO K 401.9 ESSENTIAL HYPERTENSION 05/05/2009 EVRDUGO DO, VERO K 599.0 URINARY TRACT INFECTION 05/05/2009 VERDUGO DO, VERO K 788.41 URINARY FREQUENCY 05/05/2009 VERDUGO DO, VERO K 788.63 URINARY URGENCY 05/05/2009 JUSTICE DDS, AHILE D 401.9 ESSENTIAL HYPERTENSION 05/05/2009 JUSTICE DDS, [...] VERO K 788.63 URINARY URGENCY 05/05/2009 HEBERT METAL FABRICATOR WELDER, REESE R 401.9 ESSENTIAL HYPERTENSION 05/05/2009 HEBERT METAL FABRICATOR WELDER, REESE R 599.0 URINARY TRACT INFECTION 05/05/2009 HEBERT METAL FABRICATOR WELDER, REESE R 788.41 URINARY FREQUENCY 05/05/2009 HEBERT METAL FABRICATOR WELDER, REESE R 788.63 URINARY URGENCY 05/05/2009 HEBERT METAL FABRICATOR WELDER, REESE R 401.9 ESSENTIAL HYPERTENSION 05/05/2009 HEBERT METAL FABRICATOR WELDER, REESE R 599.0 URINARY TRACT INFECTION 05/05/2009 HEBERT METAL FABRICATOR WELDER, REESE R 788.41 URINARY FREQUENCY 05/05/2009 HEBERT METAL FABRICATOR WELDER, REESE R 788.63 URINARY URGENCY 05/05/2009 VERDUGO DO, VERO K 401.9 ESSENTIAL HYPERTENSION 05/05/2009 VERDUGO DO, VERO K 599.0 URINARY TRACT INFECTION 05/05/2009 VERDUGO DO, VERO K 788.41 URINARY FREQUENCY 05/05/2009 VERDUGO DO, VERO K 788.63 URINARY URGENCY 05/05/2009 HEBERT METAL FABRICATOR WELDER, REESE R 401.9 ESSENTIAL HYPERTENSION 05/05/2009 HEBERT METAL FABRICATOR WELDER, REESE R 599.0 URINARY TRACT INFECTION 05/05/2009 HEBERT METAL FABRICATOR WELDER, REESE R 788.41 URINARY FREQUENCY 05/05/2009 HEBERT METAL FABRICATOR WELDER, REESE R 788.63 URINARY URGENCY 05/05/2009 VERDUGO DO, VERO K 401.9 ESSENTIAL HYPERTENSION 05/05/2009 VERDUGO DO, VERO K 599.0 URINARY TRACT INFECTION 05/05/2009 VERDUGO DO, VERO K 788.41 URINARY FREQUENCY 05/05/2009 VERDUGO DO, VERO K 788.63 URINARY URGENCY 05/05/2009 HEBERT METAL FABRICATOR WELDER, REESE R 401.9 ESSENTIAL HYPERTENSION 05/05/2009 HEBERT METAL FABRICATOR WELDER, REESE R 599.0 URINARY TRACT INFECTION 05/05/2009 HEBERT METAL FABRICATOR WELDER, REESE R 788.41 URINARY FREQUENCY 05/05/2009 HEBERT METAL FABRICATOR WELDER, REESE R 788.63 URINARY URGENCY 05/05/2009 VERDUGO DO, VERO K 401.9 ESSENTIAL HYPERTENSION 05/05/2009 VERDUGO DO, VERO K 599.0 URINARY TRACT INFECTION 05/05/2009 VERDUGO DO, VERO K 788.41 URINARY FREQUENCY 05/05/2009 VERDUGO DO, VERO K 788.63 URINARY URGENCY 05/05/2009 HEBERT METAL FABRICATOR WELDER, REESE R 401.9 ESSENTIAL HYPERTENSION 05/05/2009 HEBERT METAL FABRICATOR WELDER, REESE R 599.0 URINARY TRACT INFECTION 05/05/2009 HEBERT METAL FABRICATOR WELDER, REESE R 788.41 URINARY FREQUENCY 05/05/2009 HEBERT METAL FABRICATOR WELDER, REESE R 788.63 URINARY URGENCY 05/05/2009 DELLA AGUILAR MD 401.9 ESSENTIAL HYPERTENSION 05/05/2009 DELLA AGUILAR MD 599.0 URINARY TRACT INFECTION 05/05/2009 DELLA AGUILAR MD 788.41 URINARY FREQUENCY 05/05/2009 DELLA AGUILAR MD 788.63 URINARY URGENCY 01/14/2010 JAG NEWELL MD 46Matilde TONSILLITIS 01/14/2010 JAG NEWELL MD 719.41 joint pain, localized in the shoulder 01/14/2010 JAG NEWELL MD 786.2 cough 01/14/2010 JAG NEWELL MD 46Matilde [...] DO, VERO K 786.2 cough 01/14/2010 HEBERT METAL FABRICATOR WELDER, REESE R 463 TONSILLITIS 01/14/2010 HEBERT METAL FABRICATOR WELDER, REESE R 719.41 joint pain, localized in the shoulder 01/14/2010 HEBERT METAL FABRICATOR WELDER, REESE R 786.2 cough 01/14/2010 HEBERT METAL FABRICATOR WELDER, REESE R 463 TONSILLITIS 01/14/2010 HEBERT METAL FABRICATOR WELDER, REESE R 719.41 joint pain, localized in the shoulder 01/14/2010 HEBERT METAL FABRICATOR WELDER, REESE R 786.2 cough 01/14/2010 VERDUGO DO, VERO K 463 TONSILLITIS 01/14/2010 VERDUGO DO, VERO K 719.41 joint pain, localized in the shoulder 01/14/2010 VERDUGO DO, VERO K 786.2 cough 01/14/2010 HEBERT METAL FABRICATOR WELDER, REESE R 463 TONSILLITIS 01/14/2010 HEBERT METAL FABRICATOR WELDER, REESE R 719.41 joint pain, localized in the shoulder 01/14/2010 HEBERT METAL FABRICATOR WELDER, REESE R 786.2 cough 01/14/2010 VERDUGO DO, VERO K 463 TONSILLITIS 01/14/2010 VERDUGO DO, VERO K 719.41 joint pain, localized in the shoulder 01/14/2010 VERDUGO DO, VERO K 786.2 cough 01/14/2010 HEBERT METAL FABRICATOR WELDER, REESE R 463 TONSILLITIS 01/14/2010 HEBERT METAL FABRICATOR WELDER, REESE R 719.41 joint pain, localized in the shoulder 01/14/2010 HEBERT METAL FABRICATOR WELDER, REESE R 786.2 cough 01/14/2010 VERDUGO DO, [...] K 780.4 DIZZINESS AND VERTIGO 03/23/2010 HEBERT METAL FABRICATOR WELDER, REESE R 278.00 OBESITY UNSPECIFIED 03/23/2010 HEBERT METAL FABRICATOR WELDER, REESE R 780.4 DIZZINESS AND VERTIGO 03/23/2010 JUSTICE DDS, HAILE D 278.00 OBESITY UNSPECIFIED 03/23/2010 JUSTICE DDS, HAILE D 780.4 DIZZINESS AND VERTIGO 03/23/2010 VERDUGO DO, VERO K 278.00 OBESITY UNSPECIFIED 03/23/2010 VERDUGO DO, VERO K 780.4 DIZZINESS AND VERTIGO 03/23/2010 VERDUGO DO, VERO K 278.00 OBESITY UNSPECIFIED 03/23/2010 VERDUGO DO, VERO K 780.4 DIZZINESS AND VERTIGO 03/23/2010 HEBERT METAL FABRICATOR WELDER, REESE R 278.00 OBESITY UNSPECIFIED 03/23/2010 HEBERT METAL FABRICATOR WELDER, REESE R 780.4 DIZZINESS AND VERTIGO 03/23/2010 HEBERT METAL FABRICATOR WELDER, REESE R 278.00 OBESITY UNSPECIFIED 03/23/2010 HEBERT METAL FABRICATOR WELDER, REESE R 780.4 DIZZINESS AND VERTIGO 03/23/2010 VERDUGO DO, VERO K 278.00 OBESITY UNSPECIFIED 03/23/2010 VERDUGO DO, VERO K 780.4 DIZZINESS AND VERTIGO 03/23/2010 HEBERT METAL FABRICATOR WELDER, REESE R 278.00 OBESITY UNSPECIFIED 03/23/2010 HEBERT METAL FABRICATOR WELDER, REESE R 780.4 DIZZINESS AND VERTIGO 03/23/2010 VERDUGO DO, VERO K 278.00 OBESITY UNSPECIFIED 03/23/2010 VERDUGO DO, VERO K 780.4 DIZZINESS AND VERTIGO 03/23/2010 HEBERT METAL FABRICATOR WELDER, REESE R 278.00 OBESITY UNSPECIFIED 03/23/2010 HEBERT METAL FABRICATOR WELDER, REESE R 780.4 DIZZINESS AND VERTIGO 03/23/2010 VERDUGO DO, VERO K 278.00 OBESITY UNSPECIFIED 03/23/2010 VERDUGO DO, VERO K 780.4 DIZZINESS AND VERTIGO 03/23/2010 HEBERT METAL FABRICATOR WELDER, REESE R 278.00 OBESITY UNSPECIFIED 03/23/2010 HEBERT METAL FABRICATOR WELDER, REESE R 780.4 DIZZINESS AND VERTIGO 03/23/2010 [...] VERO K 388.70 EAR ACHE 04/26/2010 HEBERT METAL FABRICATOR WELDER, REESE R 388.70 EAR ACHE 04/26/2010 HAILE RENDON DDS 388.70 EAR ACHE 04/26/2010 VERDUGO DO, VERO K 388.70 EAR ACHE 04/26/2010 VERDUGO DO, VERO K 388.70 EAR ACHE 04/26/2010 HEBERT METAL FABRICATOR WELDER, REESE R 388.70 EAR ACHE 04/26/2010 HEBERT METAL FABRICATOR WELDER, REESE R 388.70 EAR ACHE 04/26/2010 VERDUGO DO, VERO K 388.70 EAR ACHE 04/26/2010 HEBERT METAL FABRICATOR WELDER, REESE R 388.70 EAR ACHE 04/26/2010 VERDUGO DO, VERO K 388.70 EAR ACHE 04/26/2010 HEBERT METAL FABRICATOR WELDER, REESE R 388.70 EAR ACHE 04/26/2010 VERDUGO DO, VERO K 388.70 EAR ACHE 04/26/2010 HEBERT METAL FABRICATOR WELDER, REESE R 388.70 EAR ACHE 04/26/2010 DELLA [...] K 465.9 UPPER RESPIRATORY INFECTION 10/21/2011 HEBERT METAL FABRICATOR WELDER, REESE R 465.9 UPPER RESPIRATORY INFECTION 10/21/2011 JUSTICE DDS, HAILE D 465.9 UPPER RESPIRATORY INFECTION 10/21/2011 VERDUGO DO, VERO K 465.9 UPPER RESPIRATORY INFECTION 10/21/2011 VERDUGO DO, VERO K 465.9 UPPER RESPIRATORY INFECTION 10/21/2011 HEBERT METAL FABRICATOR WELDER, REESE R 465.9 UPPER RESPIRATORY INFECTION 10/21/2011 HEBERT METAL FABRICATOR WELDER, REESE R 465.9 UPPER RESPIRATORY INFECTION 10/21/2011 VERDUGO DO, VERO K 465.9 UPPER RESPIRATORY INFECTION 10/21/2011 HEBERT METAL FABRICATOR WELDER, REESE R 465.9 UPPER RESPIRATORY INFECTION 10/21/2011 VERDUGO DO, VERO K 465.9 UPPER RESPIRATORY INFECTION 10/21/2011 HEBERT METAL FABRICATOR WELDER, REESE R 465.9 UPPER RESPIRATORY INFECTION 10/21/2011 VERDUGO DO, VERO K 465.9 UPPER RESPIRATORY INFECTION 10/21/2011 HEBERT METAL FABRICATOR WELDER, REESE R 465.9 UPPER RESPIRATORY INFECTION 10/21/2011 [...] NOS 03/28/2012 Ot 414.01 CORONARY ATHEROSCLEROSIS OF [place] CORON 03/28/2012 Ot 477.9 ALLERGIC RHINITIS NOS [...] DOKARENA K 787.91 diarrhea 05/11/2012 VERDUGO DO VERO K 786.09 difficulty breathing (dyspnea) 05/11/2012 [...] NOS 08/09/2012 Ot 414.01 CORONARY ATHEROSCLEROSIS OF [place] CORON 08/09/2012 Ot 496 CHR AIRWAY OBSTRUCT [...] TOENAILS 11/14/2012 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 11/14/2012 REECE THIBODEAUX, JAG 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 11/14/2012 [...] APRN 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 11/14/2012 REESE HBEERT APRN 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 11/14/2012 VERO [...] GREY, VERO K 782.7 Ecchymosis Spontaneous 01/09/2013 ERESE HEBERT APRN 782.7 Ecchymosis Spontaneous 01/09/2013 HAILE [...] 03/04/2013 GIACOMO LINDO MD Ot 794.09 ABN DAIRY WORKER FUNCT STUDY NEC 03/04/2013 GIACOMO LINDO MD Ot 842.10 SPRAIN OF HAND NOS 03/04/2013 GIACOMO LINDO MD Ot 959.01 HEAD INJURY, NOS 03/04/2013 GIACOMO LINDO MD Ot E000.8 OTHER EXTERNAL CAUSE STATUS 03/04/2013 IGACOMO LINDO MD Ot E849.0 ACCIDENT IN HOME [...] NELSON MD Ot 414.01 CORONARY ATHEROSCLEROSIS OF [place] CORON 04/17/2013 JENIFER NELSON MD Ot 496 [...] VERDUGO DO 241.1 NONTOXIC MULTINODULAR GOITER 05/07/2013 HAILE RENDON DDS 241.1 NONTOXIC MULTINODULAR GOITER 05/07/2013 VERO VERDUGO DO 241.1 NONTOXIC MULTINODULAR GOITER 05/07/2013 REESE HEBERT APRN 241.1 NONTOXIC MULTINODULAR GOITER 05/07/2013 HAILE RENDON DDS 241.1 NONTOXIC MULTINODULAR GOITER 05/07/2013 VERO VERDUGO DO 241.1 NONTOXIC MULTINODULAR GOITER 05/07/2013 VERO VERDUGO DO 241.1 NONTOXIC MULTINODULAR GOITER 05/07/2013 HEBERTREESE Moya APRN R 241.1 NONTOXIC MULTINODULAR GOITER 05/07/2013 HEBERT METAL FABRICATOR WELDER, REESE R 241.1 NONTOXIC MULTINODULAR GOITER 05/07/2013 VERDUGO , VERO K 241.1 NONTOXIC MULTINODULAR GOITER 05/07/2013 HEBERT ADAL, REESE R 241.1 NONTOXIC MULTINODULAR GOITER 05/07/2013 KARTIK GREY VERO K 241.1 NONTOXIC MULTINODULAR GOITER 05/07/2013 HEBERT REESE GALEAS R 241.1 NONTOXIC MULTINODULAR GOITER 05/07/2013 VERDUGO DO VERO K 241.1 NONTOXIC MULTINODULAR GOITER 05/07/2013 HEBERT METAL FABRICATOR WELDERREESE Paez R 241.1 NONTOXIC MULTINODULAR GOITER 05/07/2013 [...] FAM HX-ISCHEM HEART DIS 01/14/2014 KARTIK GREY VERO K Ot V45.82 PERCUTANEOUS TRANSLUM CORON ANGIOPLASTY [...] WHITE MD Ot 414.01 CORONARY ATHEROSCLEROSIS OF [place] CORON 06/15/2014 GARCÍA WHITE MD Ot 486 PNEUMONIA, ORGANISM NOS 06/15/2014 GARCÍA WHITE MD Ot 496 CHR AIRWAY OBSTRUCT NEC 06/15/2014 GARCÍA WHITE MD Ot 530.81 ESOPHAGEAL REFLUX 06/15/2014 GARCÍA WHITE MD Ot 682.2 CELLULITIS OF [place] 06/15/2014 GARCÍA WHITE MD Ot 696.1 OTHER PSORIASIS 06/15/2014 GARCÍA WHITE MD Ot 714.0 RHEUMATOID ARTHRITIS 06/15/2014 GARCÍA WHITE MD Ot 780.57 UNSPECIFIED SLEEP APNEA 06/15/2014 GACRÍA WHITE MD Ot 786.2 COUGH 06/15/2014 GARCÍA [...] NOS 01/15/2015 Ot 414.01 CORONARY ATHEROSCLEROSIS OF [place] CORON 01/15/2015 Ot 530.81 ESOPHAGEAL REFLUX 01/15/2015 Ot 996.69 INFEC INFLAM REACT DUE INTRN PROSTHTIC D 01/15/2015 Ot V45.82 PERCUTANEOUS TRANSLUM CORON ANGIOPLASTY 01/21/2015 Ot 250.00 DIAB NIKITA WO COMPL, TYPE II OR UNSPEC TY 01/21/2015 Ot 272.4 HYPERLIPIDEMIA NEC/NOS 01/21/2015 Ot 278.00 OBESITY, NOS 01/21/2015 Ot 365.9 GLAUCOMA NOS 01/21/2015 Ot 414.01 CORONARY ATHEROSCLEROSIS OF [place] CORON 01/21/2015 Ot 496 CHR AIRWAY OBSTRUCT [...] OF ASPIRIN, INITIAL ENCOU 09/08/2015 HEATHER UMANA METAL FABRICATOR WELDER Ot I10 ESSENTIAL (PRIMARY) HYPERTENSION 09/08/2015 HEATHER [...] LALA Ot I25.10 ATHSCL HEART DISEASE OF [place] CORONARY 03/10/2016 ANTIONE LALA Ot R07.89 OTHER CHEST PAIN 03/10/2016 ANTIONE LALA Ot F41.8 OTHER SPECIFIED ANXIETY DISORDERS 03/10/2016 ANTIONE LALA Ot I10 ESSENTIAL (PRIMARY) HYPERTENSION 03/10/2016 ANTIONE LALA Ot I25.10 ATHSCL HEART DISEASE OF [place] CORONARY 03/10/2016 ANTIONE LALA Ot R07.89 OTHER CHEST PAIN 03/29/2016 ANTIONE LALA Ot F41.8 OTHER SPECIFIED ANXIETY DISORDERS 03/29/2016 ANTIONE LALA Ot I10 ESSENTIAL (PRIMARY) HYPERTENSION 03/29/2016 ANTIONE LALA Ot I25.10 ATHSCL HEART DISEASE OF [place] CORONARY 03/29/2016 ANTIONE LALA Ot R07.89 OTHER CHEST PAIN 04/06/2016 ANTIONE LALA Ot F41.8 OTHER SPECIFIED ANXIETY DISORDERS 04/06/2016 ANTIONE LALA Ot I10 ESSENTIAL (PRIMARY) HYPERTENSION 04/06/2016 ANTIONE LALA Ot I25.10 ATHSCL HEART DISEASE OF [place] CORONARY 04/06/2016 ANTIONE LALA Ot R07.89 OTHER [...] NEC/NOS 06/21/2016 Ot 414.01 CORONARY ATHEROSCLEROSIS OF [place] CORON 06/21/2016 ANTIONE LALA Ot 272.4 HYPERLIPIDEMIA [...] LALA Ot I25.10 ATHSCL HEART DISEASE OF [place] CORONARY 06/21/2016 ANTIONE LALA Ot R07.89 OTHER CHEST PAIN 06/21/2016 Ot 272.4 HYPERLIPIDEMIA NEC/NOS 06/21/2016 Ot 401.9 HYPERTENSION NOS 06/21/2016 Ot 414.00 CORON ATHEROSCLER NOS TYPE VESSEL, NATIV 06/21/2016 Ot 272.4 HYPERLIPIDEMIA NEC/NOS 06/21/2016 Ot 414.01 CORONARY ATHEROSCLEROSIS OF [place] CORON 06/21/2016 ANTIONE LALA Ot 272.4 HYPERLIPIDEMIA [...] Ot V72.63 PRE-PROCEDURAL LABORATORY EXAMINATION 06/21/2016 JOHNIE TYALOR MD Ot V74.8 SCREEN-BACTERIAL DIS NEC 06/21/2016 [...] LALA Ot I25.10 ATHSCL HEART DISEASE OF [place] CORONARY 06/21/2016 ANTIONE LALA Ot R07.89 OTHER [...] NEC/NOS 06/29/2016 Ot 414.01 CORONARY ATHEROSCLEROSIS OF [place] CORON 06/29/2016 ANTIONE LALA Ot 272.4 HYPERLIPIDEMIA [...] V74.8 SCREEN-BACTERIAL DIS NEC 06/29/2016 SHER THIBODEAUX, JOHNIE Ot 250.00 DIAB NIKITA WO COMPL, TYPE [...] LALA Ot I25.10 ATHSCL HEART DISEASE OF [place] CORONARY 06/29/2016 ANTIONE LALA Ot R07.89 OTHER CHEST PAIN 06/30/2016 Ot 272.4 HYPERLIPIDEMIA NEC/NOS 06/30/2016 Ot 401.9 HYPERTENSION NOS 06/30/2016 Ot 414.00 CORON ATHEROSCLER NOS TYPE VESSEL, NATIV 06/30/2016 Ot 272.4 HYPERLIPIDEMIA NEC/NOS 06/30/2016 Ot 414.01 CORONARY ATHEROSCLEROSIS OF [place] CORON 06/30/2016 ANTIONE LALA Ot 272.4 HYPERLIPIDEMIA [...] K Ot I25.10 ATHSCL HEART DISEASE OF [place] CORONARY 06/30/2016 QUINTIN LEON ANTIONE K Ot R07.89 OTHER CHEST PAIN 07/01/2016 QUINTIN LEON ANTIONE K Ot F41.8 OTHER SPECIFIED ANXIETY DISORDERS 07/01/2016 QUINTIN LEON ANTIONE K Ot I10 ESSENTIAL (PRIMARY) HYPERTENSION 07/01/2016 QUINTIN LEON ANTIONE K Ot I25.10 ATHSCL HEART DISEASE OF [place] CORONARY 07/01/2016 QUINTIN LEON ANTIONE K Ot R07.89 OTHER CHEST PAIN 07/02/2016 Ot 272.4 HYPERLIPIDEMIA NEC/NOS 07/02/2016 Ot 401.9 HYPERTENSION NOS 07/02/2016 Ot 414.00 CORON ATHEROSCLER NOS TYPE VESSEL, NATIV 07/02/2016 Ot 272.4 HYPERLIPIDEMIA NEC/NOS 07/02/2016 Ot 414.01 CORONARY ATHEROSCLEROSIS OF [place] CORON 07/02/2016 QUINTIN LEON ANTIONE K Ot [...] LALA Ot I25.10 ATHSCL HEART DISEASE OF [place] CORONARY 07/02/2016 ANTIONE LALA Ot R07.89 OTHER CHEST PAIN 07/02/2016 ANTIONE LALA Ot F41.8 OTHER SPECIFIED ANXIETY DISORDERS 07/02/2016 ANTIONE LALA Ot I10 ESSENTIAL (PRIMARY) HYPERTENSION 07/02/2016 ANTIONE LALA Ot I25.10 ATHSCL HEART DISEASE OF [place] CORONARY 07/02/2016 ANTIONE LALA Ot R07.89 OTHER CHEST PAIN 07/02/2016 GARCÍA WHITE MD Ot B17.9 ACUTE VIRAL HEPATITIS, UNSPECIFIED 07/02/2016 GARCÍA WHITE MD Ot J02.9 ACUTE PHARYNGITIS, UNSPECIFIED 07/02/2016 GARCÍA WHITE MD Ot K42.9 UMBILICAL HERNIA WITHOUT OBSTRUCTION OR 07/02/2016 GARCÍA WHITE MD Ot K57.10 DVRTCLOS OF [...] LALA Ot I25.10 ATHSCL HEART DISEASE OF [place] CORONARY 07/12/2016 ANTIONE LALA Ot R07.89 OTHER CHEST PAIN 07/14/2016 TRAM JENSEN MD Ot B17.9 ACUTE VIRAL HEPATITIS, UNSPECIFIED 07/14/2016 TRAM JENSEN MD Ot B34.9 VIRAL INFECTION, UNSPECIFIED 07/14/2016 TRAM JENSEN MD Ot M79.1 MYALGIA 07/20/2016 ANTIONE LALA Ot F41.8 OTHER SPECIFIED ANXIETY DISORDERS 07/20/2016 ANTIONE LALA Ot I10 ESSENTIAL (PRIMARY) HYPERTENSION 07/20/2016 ANTIONE LALA Ot I25.10 ATHSCL HEART DISEASE OF [place] CORONARY 07/20/2016 ANTIONE LALA Ot R07.89 OTHER CHEST PAIN 08/03/2016 ANTIONE LALA Ot F41.8 OTHER SPECIFIED ANXIETY DISORDERS 08/03/2016 ANTIONE LALA Ot I10 ESSENTIAL (PRIMARY) HYPERTENSION 08/03/2016 ANTIONE LALA Ot I25.10 ATHSCL HEART DISEASE OF [place] CORONARY 08/03/2016 ANTIONE LALA Ot R07.89 OTHER [...] MD Ot I25.10 ATHSCL HEART DISEASE OF [place] CORONARY 08/03/2016 JENIFER NELSON MD Ot J44.9 CHRONIC OBSTRUCTIVE PULMONARY DISEASE, U 08/03/2016 JENIFER NELSON MD Ot R07.89 OTHER CHEST PAIN 08/03/2016 JENIFER NELSON MD Ot R94.39 ABNORMAL RESULT OF OTHER CARDIOVASCULAR 08/03/2016 JENIFER NELSON MD Ot Z68.42 BODY MASS INDEX (BMI) 45.0-49.9, ADULT 08/03/2016 JENIFER NELSON MD Ot Z79.899 OTHER DETENTION (CURRENT) DRUG THERAPY 08/03/2016 JENIFER NELSON MD [...] MD Ot I25.10 ATHSCL HEART DISEASE OF [place] CORONARY 08/18/2016 JENIFER NELSON MD Ot J44.9 CHRONIC OBSTRUCTIVE PULMONARY DISEASE, U 08/18/2016 JENIFER NELSON MD Ot R07.89 OTHER CHEST PAIN 08/18/2016 JENIFER NELSON MD Ot R94.39 ABNORMAL RESULT OF OTHER CARDIOVASCULAR 08/18/2016 JENIFER NELSON MD Ot Z68.42 BODY MASS INDEX (BMI) 45.0-49.9, ADULT 08/18/2016 JENIFER NELSON MD Ot Z79.899 OTHER DETENTION (CURRENT) DRUG THERAPY 08/18/2016 JENIFER NELSON MD [...] MD Ot I25.10 ATHSCL HEART DISEASE OF [place] CORONARY 08/18/2016 JENIFER NELSON MD Ot J44.9 CHRONIC OBSTRUCTIVE PULMONARY DISEASE, U 08/18/2016 JENIFER NELSON MD Ot R07.89 OTHER CHEST PAIN 08/18/2016 JENIFER NELSON MD Ot R94.39 ABNORMAL RESULT OF OTHER CARDIOVASCULAR 08/18/2016 JENIFER NELSON MD Ot Z68.42 BODY MASS INDEX (BMI) 45.0-49.9, ADULT 08/18/2016 JENIFER NELSON MD Ot Z79.899 OTHER DETENTION (CURRENT) DRUG THERAPY 08/18/2016 JENIFER NELSON MD Ot Z95.5 PRESENCE OF CORONARY ANGIOPLASTY IMPLANT 09/14/2016 HEATHER UMANA APRN Ot D32.9 BENIGN NEOPLASM OF MENINGES, UNSPECIFIED 09/14/2016 HEATHER UMANA APRN Ot E11.9 TYPE 2 DIABETES MELLITUS WITHOUT COMPLIC 09/14/2016 HEATHER UMANA METAL FABRICATOR WELDER Ot I10 ESSENTIAL (PRIMARY) HYPERTENSION 09/14/2016 HEATHER UMANA METAL FABRICATOR WELDER Ot I16.0 HYPERTENSIVE URGENCY 09/14/2016 HEATHER UAMNA APRN Ot J44.9 CHRONIC OBSTRUCTIVE PULMONARY DISEASE, U 09/14/2016 HEATHER UMANA APRN Ot N39.0 URINARY TRACT INFECTION, SITE NOT SPECIF 09/14/2016 HEATHER UMANA APRN Ot R20.0 ANESTHESIA OF SKIN 09/14/2016 HEATHER UMANA METAL FABRICATOR WELDER Ot Z79.82 PIPEMAN (CURRENT) USE OF ASPIRIN 09/14/2016 HEATHER UMANA APRN Ot Z79.899 OTHER PIPEMAN (CURRENT) DRUG THERAPY 09/15/2016 HEATHER UMANA APRN Ot D32.9 BENIGN NEOPLASM OF [place]ENINGES, UNSPECIFIED 09/15/2016 HEATHER UMANA APRN Ot E11.9 TYPE 2 DIABETES MELLITUS WITHOUT COMPLIC 09/15/2016 HEATHER UMANA METAL FABRICATOR WELDER Ot I10 ESSENTIAL (PRIMARY) HYPERTENSION 09/15/2016 HEATHER UMANA APRN Ot I16.0 HYPERTENSIVE URGENCY 09/15/2016 HEATHER UMANA APRN Ot J44.9 CHRONIC OBSTRUCTIVE PULMONARY DISEASE, U 09/15/2016 HEATHER UMANA APRN Ot N39.0 URINARY TRACT INFECTION, SITE NOT SPECIF 09/15/2016 HEATHER UMANA APRN Ot R20.0 ANESTHESIA OF SKIN 09/15/2016 HEATHER UMANA METAL FABRICATOR WELDER Ot Z79.82 DETENTION (CURRENT) USE OF ASPIRIN 09/15/2016 HEATHER UMANA APRN Ot Z79.899 OTHER DETENTION (CURRENT) DRUG THERAPY 09/21/2016 REESE HEBERT Ot [...] NEOPLASM OF [place]ENINGES, UNSPECIFIED 09/24/2016 HEATHER UMANA METAL FABRICATOR WELDER Ot E11.9 TYPE 2 DIABETES MELLITUS WITHOUT COMPLIC 09/24/2016 HEATHER UMANA METAL FABRICATOR WELDER Ot I10 ESSENTIAL (PRIMARY) HYPERTENSION 09/24/2016 HEATHER UMANA METAL FABRICATOR WELDER Ot I16.0 HYPERTENSIVE URGENCY 09/24/2016 HEATHER UMANA METAL FABRICATOR WELDER Ot J44.9 CHRONIC OBSTRUCTIVE PULMONARY DISEASE, U 09/24/2016 HEATHER UMANA APRN Ot N39.0 URINARY TRACT INFECTION, SITE NOT SPECIF 09/24/2016 HEATHER UMANA APRN Ot R20.0 ANESTHESIA OF SKIN 09/24/2016 HEATHER UMANA METAL FABRICATOR WELDER Ot Z79.82 PIPEMAN (CURRENT) USE OF ASPIRIN 09/24/2016 HEATHER UMANA METAL FABRICATOR WELDER Ot Z79.899 OTHER DETENTION (CURRENT) DRUG THERAPY 09/27/2016 HEATHER UMANA APRN Ot D32.9 BENIGN NEOPLASM OF MENINGES, UNSPECIFIED 09/27/2016 HEATHER UMANA METAL FABRICATOR WELDER Ot E11.9 TYPE 2 DIABETES MELLITUS WITHOUT COMPLIC 09/27/2016 HEATHER UMANA METAL FABRICATOR WELDER Ot I10 ESSENTIAL (PRIMARY) HYPERTENSION 09/27/2016 HEATHER UMANA METAL FABRICATOR WELDER Ot I16.0 HYPERTENSIVE URGENCY 09/27/2016 HEATHER UMANA APRN Ot J44.9 CHRONIC OBSTRUCTIVE PULMONARY DISEASE, U 09/27/2016 HEATHER UMANA METAL FABRICATOR WELDER Ot N39.0 URINARY TRACT INFECTION, SITE NOT SPECIF 09/27/2016 HEATHER UMANA METAL FABRICATOR WELDER Ot R20.0 ANESTHESIA OF SKIN 09/27/2016 HEATHER UMANA METAL FABRICATOR WELDER Ot Z79.82 PIPEMAN (CURRENT) USE OF ASPIRIN 09/27/2016 HEATHER UMANA METAL FABRICATOR WELDER Ot Z79.899 OTHER DETENTION (CURRENT) DRUG THERAPY 10/11/2016 REESE HEBERT CFNP Ot G93.9 DISORDER OF BRAIN, UNSPECIFIED 10/25/2016 HEBERTREESE CFNP Ot G93.9 DISORDER OF BRAIN, UNSPECIFIED 05/26/2017 Ot 272.4 HYPERLIPIDEMIA NEC/NOS 05/26/2017 Ot 401.9 HYPERTENSION NOS 05/26/2017 Ot 414.00 CORON ATHEROSCLER NOS TYPE VESSEL, NATIV 05/26/2017 Ot 272.4 HYPERLIPIDEMIA NEC/NOS 05/26/2017 Ot 414.01 CORONARY ATHEROSCLEROSIS OF [place] CORON 05/26/2017 ANTIONE LALA Ot 272.4 HYPERLIPIDEMIA [...] LALA Ot I25.10 ATHSCL HEART DISEASE OF [place] CORONARY 05/26/2017 NATIONE LALA Ot R07.89 OTHER CHEST PAIN 05/26/2017 ANTIONE LALA Ot F41.8 OTHER SPECIFIED ANXIETY DISORDERS 05/26/2017 ANTIONE LALA Ot I10 ESSENTIAL (PRIMARY) HYPERTENSION 05/26/2017 ANTIONE LALA Ot I25.10 ATHSCL HEART DISEASE OF [place] CORONARY 05/26/2017 ANTIONE LALA Ot R07.89 OTHER [...] MD Ot I25.10 ATHSCL HEART DISEASE OF [place] CORONARY 05/27/2017 TRAM JENSEN MD, Ot J44.9 CHRONIC OBSTRUCTIVE PULMONARY DISEASE, U 05/27/2017 TRAM JENSEN MD, Ot K21.9 GASTRO-ESOPHAGEAL REFLUX DISEASE WITHOUT 05/27/2017 TRAM JENSEN MD Ot M06.9 RHEUMATOID ARTHRITIS, UNSPECIFIED 05/27/2017 TRAM JENSEN MD Ot N39.0 URINARY TRACT INFECTION, SITE NOT SPECIF 05/27/2017 TRAM JENSEN MD Ot R11.2 NAUSEA WITH VOMITING, UNSPECIFIED 05/27/2017 TRAM JENSEN MD Ot Z79.82 PIPEMAN (CURRENT) USE OF ASPIRIN 05/27/2017 TRAM JENSEN [...] MD Ot I25.10 ATHSCL HEART DISEASE OF [place] CORONARY 05/30/2017 TRAM JENSEN MD, Ot J44.9 CHRONIC OBSTRUCTIVE PULMONARY DISEASE, U 05/30/2017 TRAM JENSEN MD Ot K21.9 GASTRO-ESOPHAGEAL REFLUX DISEASE WITHOUT 05/30/2017 TRAM JENSEN MD Ot M06.9 RHEUMATOID ARTHRITIS, UNSPECIFIED 05/30/2017 TRAM JENSEN MD Ot N39.0 URINARY TRACT INFECTION, SITE NOT SPECIF 05/30/2017 TRAM JENSEN MD Ot R11.2 NAUSEA WITH VOMITING, UNSPECIFIED 05/30/2017 TRAM JENSEN MD Ot Z79.82 PIPEMAN (CURRENT) USE OF ASPIRIN 05/30/2017 TRAM JENSEN MD, Ot Z82.49 FAMILY HX OF ISCHEM HEART DIS AND OTH DI 05/30/2017 TRAM JENSEN MD, Ot Z87.19 PERSONAL HISTORY OF OTHER DISEASES OF TH 05/30/2017 TRAM JENSEN MD, Ot Z95.5 PRESENCE OF CORONARY ANGIOPLASTY IMPLANT 08/21/2017 CHADWICK العلي MD Ot E11.9 TYPE 2 DIABETES MELLITUS WITHOUT COMPLIC 08/21/2017 CHADWICK العلي MD Ot E66.9 OBESITY, UNSPECIFIED 08/21/2017 CHADWICK العلي MD, Ot E78.5 HYPERLIPIDEMIA, UNSPECIFIED 08/21/2017 CHADWICK العلي MD, Ot G47.30 SLEEP APNEA, UNSPECIFIED 08/21/2017 CHADWICK العلي MD, Ot I10 ESSENTIAL (PRIMARY) HYPERTENSION 08/21/2017 CHADWIKC العلي MD Ot I25.10 ATHSCL HEART DISEASE OF [place] CORONARY 08/21/2017 CHADWICK العلي MD Ot I51.7 CARDIOMEGALY 08/21/2017 CHADWICK العلي MD, Ot J44.9 CHRONIC OBSTRUCTIVE PULMONARY DISEASE, U 08/21/2017 CHADWICK العلي MD, Ot K21.9 GASTRO-ESOPHAGEAL REFLUX DISEASE WITHOUT 08/21/2017 CHADWICK العلي MD, Ot K42.9 UMBILICAL HERNIA WITHOUT OBSTRUCTION OR 08/21/2017 CHADWICK العلي MD Ot R07.9 CHEST PAIN, UNSPECIFIED 08/21/2017 CHADWICK العلي MD, Ot Z79.82 DETENTION (CURRENT) USE OF ASPIRIN 08/21/2017 CHADWICK العلي MD, Ot Z79.899 OTHER DETENTION (CURRENT) DRUG THERAPY 08/21/2017 CHADWICK العلي MD, [...] MD, Ot I25.10 ATHSCL HEART DISEASE OF [place] CORONARY 08/21/2017 CHADWICK العلي MD Ot I51.7 CARDIOMEGALY 08/21/2017 CHADWICK العلي MD, Ot J44.9 CHRONIC OBSTRUCTIVE PULMONARY DISEASE, U 08/21/2017 CHADWICK العلي MD Ot K21.9 GASTRO-ESOPHAGEAL REFLUX DISEASE WITHOUT 08/21/2017 CHADWICK العلي MD, Ot K42.9 UMBILICAL HERNIA WITHOUT OBSTRUCTION OR 08/21/2017 CHADWICK العلي MD Ot R07.9 CHEST PAIN, UNSPECIFIED 08/21/2017 CHADWICK العلي MD, Ot Z79.82 PIPEMAN (CURRENT) USE OF ASPIRIN 08/21/2017 CHADWICK العلي MD Ot Z79.899 OTHER PIPEMAN (CURRENT) DRUG THERAPY 08/21/2017 CHADWICK العلي MD Ot Z95.5 PRESENCE OF CORONARY ANGIOPLASTY IMPLANT 09/11/2017 JOHNIE TAYLOR MD Ot K43.9 VENTRAL HERNIA WITHOUT OBSTRUCTION OR GA 09/11/2017 JOHNIE TAYLOR MD Ot Z01.818 ENCOUNTER FOR OTHER PREPROCEDURAL EXAMIN 09/12/2017 JOHNIE TAYLOR MD, Ot K43.9 VENTRAL [...] MD, Ot I25.10 ATHSCL HEART DISEASE OF [place] CORONARY 09/14/2017 JOHNIE TAYLOR MD, Ot J44.9 [...] ADULT 09/14/2017 JOHNIE TAYLOR MD, Ot Z79.84 PIPEMAN (CURRENT) USE OF ORAL HYPOGLYC 09/14/2017 JOHNIE TAYLOR MD, Ot Z79.899 OTHER DETENTION (CURRENT) DRUG THERAPY 09/14/2017 JOHNIE TAYLOR MD, Ot Z95.5 PRESENCE OF CORONARY ANGIOPLASTY IMPLANT 09/17/2017 JOHNIE TAYLOR MD, Ot D32.0 BENIGN NEOPLASM OF CEREBRAL MENINGES 09/17/2017 JOHNIE TAYLOR MD Ot E11.9 TYPE 2 DIABETES MELLITUS WITHOUT COMPLIC 09/17/2017 JOHNIE TAYLOR MD Ot E66.01 MORBID (SEVERE) OBESITY DUE TO EXCESS CA 09/17/2017 JOHNIE TAYLOR MD, Ot E78.00 PURE HYPERCHOLESTEROLEMIA, UNSPECIFIED 09/17/2017 JOHNIE TAYLOR MD, Ot G43.909 MIGRAINE, UNSP, NOT INTRACTABLE, WITHOUT 09/17/2017 JOHNIE TAYLOR MD, Ot G47.33 OBSTRUCTIVE SLEEP APNEA (ADULT) (PEDIATR 09/17/2017 JOHNIE TAYLOR MD, Ot I10 ESSENTIAL (PRIMARY) HYPERTENSION 09/17/2017 JOHNIE TAYLOR MD, Ot I25.10 ATHSCL HEART DISEASE OF [place] CORONARY 09/17/2017 JOHNIE TAYLOR MD, Ot J44.9 [...] ADULT 09/17/2017 JOHNIE TAYLOR MD, Ot Z79.84 DETENTION (CURRENT) USE OF ORAL HYPOGLYC 09/17/2017 JOHNIE TAYLOR MD, Ot Z79.899 OTHER DETENTION (CURRENT) DRUG THERAPY 09/17/2017 JOHNIE TAYLOR MD, Ot Z95.5 PRESENCE OF CORONARY ANGIOPLASTY IMPLANT 10/05/2017 JOHNIE TAYLOR MD, Ot D32.0 BENIGN NEOPLASM OF CEREBRAL MENINGES 10/05/2017 JOHNIE TAYLOR MD, Ot E11.9 TYPE 2 DIABETES MELLITUS WITHOUT COMPLIC 10/05/2017 JOHNIE TAYLOR MD Ot E66.01 MORBID (SEVERE) OBESITY DUE TO EXCESS CA 10/05/2017 JOHNIE TAYLOR MD Ot E78.00 PURE HYPERCHOLESTEROLEMIA, UNSPECIFIED 10/05/2017 JOHNIE TAYLOR MD, Ot G43.909 MIGRAINE, UNSP, NOT INTRACTABLE, WITHOUT 10/05/2017 JOHNIE TAYLOR MD Ot G47.33 OBSTRUCTIVE SLEEP APNEA (ADULT) (PEDIATR 10/05/2017 JOHNIE TAYLOR MD Ot I10 ESSENTIAL (PRIMARY) HYPERTENSION 10/05/2017 JOHNIE TAYLOR MD, Ot I25.10 ATHSCL HEART DISEASE OF [place] CORONARY 10/05/2017 JOHNIE TAYLOR MD, Ot J44.9 [...] ADULT 10/05/2017 JOHNIE TAYLOR MD, Ot Z79.84 PIPEMAN (CURRENT) USE OF ORAL HYPOGLYC 10/05/2017 JOHNIE TAYLOR MD, Ot Z79.899 OTHER PIPEMAN (CURRENT) DRUG THERAPY 10/05/2017 JOHNIE TAYLOR MD, Ot Z95.5 PRESENCE OF CORONARY ANGIOPLASTY IMPLANT 02/14/2018 HOLLY MOSELEY MD Ot D32.0 BENIGN NEOPLASM OF CEREBRAL MENINGES 02/14/2018 HOLLY MOSELEY MD Ot E11.9 TYPE 2 DIABETES MELLITUS WITHOUT COMPLIC 02/14/2018 HOLLY MOSEELY MD Ot G43.909 MIGRAINE, UNSP, NOT INTRACTABLE, WITHOUT 02/14/2018 HOLLY MOSELEY MD Ot G47.30 SLEEP APNEA, UNSPECIFIED 02/14/2018 HOLLY MOSELEY MD, Ot J44.9 CHRONIC OBSTRUCTIVE PULMONARY DISEASE, U 02/14/2018 HOLLY MOSELEY MD Ot N39.0 URINARY TRACT INFECTION, SITE NOT SPECIF 02/14/2018 HOLLY MOSELEY MD Ot R42 DIZZINESS AND GIDDINESS 02/14/2018 HOLLY MOSELEY MD Ot Z79.51 PIPEMAN (CURRENT) USE OF INHALED STERO 02/14/2018 HOLLY MOSELEY MD Ot Z79.82 PIPEMAN (CURRENT) USE OF ASPIRIN 02/14/2018 HOLLY MOSELEY MD Ot Z79.84 DETENTION (CURRENT) USE OF ORAL HYPOGLYC 02/14/2018 HOLLY MOSELEY MD Ot Z87.19 PERSONAL HISTORY OF OTHER DISEASES OF TH 02/14/2018 HOLLY MOSELEY MD, Ot Z87.2 PERSONAL HISTORY OF DISEASES OF THE SKIN 02/14/2018 HOLLY MOSELEY MD Ot Z88.0 ALLERGY STATUS TO PENICILLIN 02/14/2018 LORELEI THIBODEAUX, HOLLY La Ot Z88.1 ALLERGY STATUS TO OTHER ANTIBIOTIC AGENT 02/14/2018 LORELEI THIBODEAUX, HLOLY La Ot Z88.2 ALLERGY STATUS TO SULFONAMIDES STATUS 02/14/2018 LORELEI THIBODEAUX, HOLLY La Ot Z95.5 PRESENCE OF CORONARY ANGIOPLASTY IMPLANT 02/14/2018 Ot 272.4 HYPERLIPIDEMIA NEC/NOS 02/14/2018 Ot 414.01 CORONARY ATHEROSCLEROSIS OF [place] CORON 02/14/2018 ANTIONE LALA Ot 272.4 HYPERLIPIDEMIA NEC/NOS 02/14/2018 ANTIONE LALA Ot 278.00 OBESITY, NOS 02/14/2018 ANTIONE LALA Ot 401.9 HYPERTENSION NOS 02/14/2018 ANTIONE LALA Ot 414.00 CORON ATHEROSCLER NOS TYPE VESSEL, NATIV 02/14/2018 ANTIONE LALA Ot 424.0 MITRAL VALVE DISORDER 02/14/2018 ANTIONE LALA Ot 496 CHR AIRWAY OBSTRUCT NEC 02/14/2018 LINDA VELASCO APRN Ot 225.2 DALIA MERI CEREBR MENINGES 02/14/2018 JOHNIE TAYLOR MD Ot 553.1 UMBILICAL HERNIA 02/14/2018 JOHNIE TAYLOR MD Ot V72.83 EXAM PRE-OPERATIVE NEC 02/14/2018 JOHNIE TAYLOR MD Ot V74.8 SCREEN-BACTERIAL DIS NEC 02/14/2018 JOHNIE TAYLOR MD Ot 250.00 DIAB NIKITA WO COMPL, TYPE II OR UNSPEC TY 02/14/2018 JOHNIE TAYLOR MD Ot 553.1 UMBILICAL HERNIA 02/14/2018 JOHNIE TAYLOR MD Ot 791.9 ABN URINE FINDINGS NEC 02/14/2018 JOHNIE TAYLOR MD Ot V72.63 PRE-PROCEDURAL LABORATORY EXAMINATION 02/14/2018 JOHNIE TAYLOR MD Ot V74.8 SCREEN-BACTERIAL DIS NEC 02/14/2018 JOHNIE TAYLOR MD Ot 879.2 OPN WND ANTERIOR ABDOMEN 02/14/2018 JOHNIE TAYLOR MD Ot E000.8 OTHER EXTERNAL CAUSE STATUS 02/14/2018 JOHNIE TAYLOR MD Ot E928.9 ACCIDENT NOS 02/14/2018 Ot 998.83 NON-HEALING SURG WOUND 02/14/2018 Ot V72.63 PRE- PROCEDURAL LABORATORY EXAMINATION 02/14/2018 Ot V72.83 EXAM PRE- OPERATIVE NEC 02/14/2018 Ot V74.8 SCREEN- BACTERIAL DIS NEC 02/14/2018 ANTIONE LALA Ot 272.4 HYPERLIPIDEMIA NEC/NOS 02/14/2018 ANTIONE LALA Ot 327.23 OBSTRUCTIVE SLEEP APNEA (ADULT) (PEDIATR 02/14/2018 ANTIONE LALA Ot 401.9 HYPERTENSION NOS 02/14/2018 ANTIONE LALA Ot 414.00 CORON ATHEROSCLER NOS TYPE VESSEL, NATIV 02/14/2018 ANTIONE LALA Ot F41.8 OTHER SPECIFIED ANXIETY DISORDERS 02/14/2018 ANTIONE LALA Ot I10 ESSENTIAL (PRIMARY) HYPERTENSION 02/14/2018 ANTIONE LALA Ot I25.10 ATHSCL HEART DISEASE OF [place] CORONARY 02/14/2018 ANTIONE LALA Ot R07.89 OTHER CHEST PAIN 02/14/2018 ANTIONE LALA Ot F41.8 OTHER SPECIFIED ANXIETY DISORDERS 02/14/2018 ANTIONE LALA Ot I10 ESSENTIAL (PRIMARY) HYPERTENSION 02/14/2018 ANTIONE LALA Ot I25.10 ATHSCL HEART DISEASE OF [place] CORONARY 02/14/2018 ANTIONE LALA Ot R07.89 OTHER CHEST PAIN 02/14/2018 REESE HEBERT Ot G93.9 DISORDER OF BRAIN, UNSPECIFIED 02/15/2018 HOLLY MOSELEY MD Ot D32.0 BENIGN NEOPLASM OF CEREBRAL MENINGES 02/15/2018 HOLLY MOSELEY MD Ot E11.9 TYPE 2 DIABETES MELLITUS WITHOUT COMPLIC 02/15/2018 LORELEI THIBODEAUX, HOLLY La Ot G43.909 MIGRAINE, UNSP, NOT INTRACTABLE, WITHOUT 02/15/2018 HOLLY MOSELEY MD Ot G47.30 SLEEP APNEA, UNSPECIFIED 02/15/2018 HOLLY MOSELEY MD Ot J44.9 CHRONIC OBSTRUCTIVE PULMONARY DISEASE, U 02/15/2018 HOLLY MOSELEY MD Ot N39.0 URINARY TRACT INFECTION, SITE NOT SPECIF 02/15/2018 HOLLY MOSELEY MD Ot R42 DIZZINESS AND GIDDINESS 02/15/2018 HOLLY MOSELEY MD, Ot Z79.51 PIPEMAN (CURRENT) USE OF INHALED STERO 02/15/2018 HOLLY MOSELEY MD, Ot Z79.82 DETENTION (CURRENT) USE OF ASPIRIN 02/15/2018 HOLLY MOSELEY MD, Ot Z79.84 PIPEMAN (CURRENT) USE OF ORAL HYPOGLYC 02/15/2018 HOLLY MOSELEY MD, Ot Z87.19 PERSONAL HISTORY OF OTHER DISEASES OF TH 02/15/2018 HOLLY MOSELEY MD, Ot Z87.2 PERSONAL HISTORY OF DISEASES OF THE SKIN 02/15/2018 HOLLY MOSELEY MD, Ot Z88.0 ALLERGY STATUS TO PENICILLIN 02/15/2018 HOLLY MOSELEY MD, Ot Z88.1 ALLERGY STATUS TO OTHER ANTIBIOTIC AGENT 02/15/2018 HOLLY MOSELEY MD, Ot Z88.2 ALLERGY STATUS TO SULFONAMIDES STATUS 02/15/2018 HOLLY MOSELEY MD, Ot Z95.5 PRESENCE OF CORONARY ANGIOPLASTY [...] ANGIOCARDIOGRAM 08/08/2012 88.56 CORONAR ARTERIOGR-2 CATH 08/08/2012 41830 I/D SIMPLE ABSCESS 12/18/2012 13513 CULTURE WOUND (AEROBIC) 12/18/2012 10090 ROUTINE VENIPUNCTURE 01/09/2013 98467 CBC 01/09/2013 68011 INR (IN HOUSE) 01/09/2013 23923 ROUTINE VENIPUNCTURE 01/15/2013 85547 CBC 01/15/2013 05589 MRI BRAIN W/O & W/DYE 08/22/2013 Neurology Guicho Delarosa 08/22/2013 General S Salas Taylor 10/28/2013 82357 A1C (IN-HOUSE) 10/28/2013 46346 A1C (IN-HOUSE) 02/24/2014 69102 ROUTINE VENIPUNCTURE 02/25/2014 58254 CBC 02/25/2014 [id number] GFR CALC (RESULT ONLY) 02/25/2014 70798 CMP 02/25/2014 46104 LIPID PANEL 02/25/2014 Cardiolog Jenifer Nelson 03/27/2014 49781 A1C (IN-HOUSE) 07/08/2014 33896 A1C (IN-HOUSE) 10/15/2014 61459 INFLUENZA A & B (IN-HOUSE) 11/14/2014 54.3 DESTRUCT ABD WALL LESION 01/15/2015 62437 A1C (IN-HOUSE) 02/04/2015 Results Test Result Range [...] culture - 06/21/16 00:35 Bacterial urine culture [id number] NRG COLONY COUNT 10,000/ML - 100,000/ML NRG FTX;REPORTABLE SENSITIVITY REPORTED AT 09, -16 NRG URINE CULTURE RESULTS PLUS NRG Bacterial susceptibility [...] NRG Blood erythrocyte morphology finding identification NORMAL NRG PT panel in platelet poor plasma by [...] - 07/02/16 09:27 Bacterial throat culture NBS [facility] Complete blood count (CBC) with automated white [...] culture - 08/03/16 07:19 Bacterial urine culture [id number] NRG COLONY COUNT <10,000 NRG FREE TEXT ENTRY 2 AND AT LEAST 4 GRAM POSITIVE ISOLATES NRG FREE TEXT ENTRY 3 SEE COMMENTS NRG Automated blood complete blood count (hemogram) panel [...] culture - 05/26/17 23:38 Bacterial urine culture [id number] NRG COLONY COUNT 10,000/ML - 100,000/ML NRG [...] 05/26/17 23:43 Blood monocytes/100 leukocytes 2 % NR Manual blood segmented neutrophils/100 leukocytes 89 % NRG Blood band neutrophils/100 leukocytes 4 % NRG Manual blood lymphocytes/100 leukocytes 3 % NRG Manual eosinophils/100 leukocytes in nose 1 % NRG Manual blood basophils/100 leukocytes 0 % NRG Blood lymphocytes variant/100 leukocytes 1 % NRG Blood erythrocyte morphology finding identification NORMAL [facility] Comprehensive metabolic panel - 05/26/17 23:43 Serum [...] measurement by glucometer (mass/volume) 134 mg/dL 70-110 Complete urinalysis with reflex to culture - 02/13/18 23:40 Urine color determination BRANNON NRG Urine clarity determination SLIGHTLY CLOUDY NRG Urine pH measurement by test strip 5 5-9 Specific gravity of urine by test strip 1.030 1.016- 1.022 Urine protein assay by test [...] detection in urine sediment by light microscopy LARGE NRG Complete urinalysis with reflex to culture YES NRG Bacterial urine culture - 02/13/18 23:40 Bacterial urine culture [id number] NRG COLONY COUNT >100,000/ML NRG FTX;REPORTABLE SEE COMMENT NRG URINE CULTURE RESULTS PLUS NRG CBC - 03/19/18 10:00 WHITE BLOOD CELL COUNT 8.6 Thousand/uL 3.8-10.8 RED BLOOD CELL COUNT 4.64 Million/uL 3.80-5.10 HEMOGLOBIN 14.2 g/dL 11.7-15.5 HEMATOCRIT 42.8 % 35.0-45.0 MCV 92.2 fL 80.0-100.0 MCH 30.6 pg 27.0-33.0 MCHC 33.2 g/dL 32.0-36.0 RDW 12.5 % 11.0-15.0 PLATELET COUNT 284 Thousand/uL 140-400 MPV 9.4 fL 7.5-12.5 ABSOLUTE NEUTROPHILS 4644 cells/uL 4556-0692 ABSOLUTE LYMPHOCYTES 2795 cells/uL 850-3900 ABSOLUTE MONOCYTES 585 cells/uL 200-950 ABSOLUTE EOSINOPHILS 550 cells/uL 15-500 ABSOLUTE BASOPHILS 26 cells/uL 0-200 NEUTROPHILS 54 % NRG LYMPHOCYTES 32.5 % NRG MONOCYTES 6.8 % NRG EOSINOPHILS 6.4 % NRG BASOPHILS 0.3 % NRG Encounters ACCT No. Visit Date/Time Discharge Status Pt. Type Provider Facility Loc./Unit Complaint [id number] 02/16/2015 09:11:00 02/16/2015 23:59:59 CLS Outpatient DELLA AGUILAR MD [id number] 01/05/2015 13:26:00 01/05/2015 23:59:59 CLS Outpatient REESE HEBERT APRN [id number] 11/14/2014 09:48:00 11/14/2014 23:59:59 CLS Outpatient VERO VERDUGO DO [id number] 10/15/2014 11:17:00 10/15/2014 23:59:59 CLS Outpatient VERO VERDUGO DO [id number] 10/15/2014 11:17:00 10/15/2014 23:59:59 CLS Outpatient REESE HEBERT APRN [id number] 07/08/2014 09:35:00 07/08/2014 23:59:59 CLS Outpatient REESE HEBERT APRN Wilda [id number] 07/08/2014 09:35:00 07/08/2014 23:59:59 CLS Outpatient VERO VERDUGO DO Connie [id number] 06/02/2014 16:01:00 06/02/2014 23:59:59 CLS Outpatient EMILEE GALEAS REESE Astudillo [id number] 04/02/2014 10:46:00 04/02/2014 23:59:59 CLS Outpatient EMILEE GALEAS REESE Astudillo [id number] 03/07/2014 13:14:00 03/07/2014 23:59:59 CLS Outpatient KARTIK GREY VERO Rosales [id number] 02/25/2014 10:17:00 02/25/2014 23:59:59 CLS Outpatient VERDUGO VERO [id number] 01/30/2014 10:07:00 01/30/2014 23:59:59 CLS Outpatient HAILE RENDON DDS [id number] 10/28/2013 17:30:00 10/28/2013 23:59:59 CLS Outpatient VERDUGO VERO [id number] 10/28/2013 17:30:00 10/28/2013 23:59:59 CLS Outpatient EMILEE GALEAS REESE Astudillo [id number] 08/22/2013 15:30:00 08/22/2013 23:59:59 CLS Outpatient HAILE RENDON DDS [id number] 08/14/2013 10:21:00 08/14/2013 23:59:59 CLS Outpatient VERO VERDUGO DO [id number] 01/15/2013 14:41:00 01/15/2013 23:59:59 CLS Outpatient [id number] 01/09/2013 10:04:00 01/09/2013 23:59:59 CLS Outpatient JAG NEWELL MD [id number] 01/09/2013 10:04:00 01/09/2013 23:59:59 CLS Outpatient [id number] 12/18/2012 15:34:00 12/18/2012 23:59:59 CLS Outpatient [id number] 12/18/2012 15:34:00 12/18/2012 23:59:59 CLS Outpatient JAG NEWELL MD [id number] 11/14/2012 09:20:00 11/14/2012 23:59:59 CLS Outpatient [id number] 11/14/2012 09:20:00 11/14/2012 23:59:59 CLS Outpatient JAG NEWELL MD [id number] 09/13/2012 10:47:00 09/13/2012 23:59:59 CLS Outpatient JAG NEWELL MD [id number] 06/04/2013 15:18:00 Document Registration [id number] 05/07/2013 15:51:00 Document Registration [id number] 03/12/2013 10:41:00 Document Registration [id number] 03/19/2018 09:40:00 03/19/2018 23:59:59 [id number] 03/19/2018 09:40:00 Document Registration [id number] 02/13/2018 22:34:00 02/14/2018 00:59:00 DIS Emergency HOLLY MOSELEY MD [facility] ER DIZZINESS [id number] 09/14/2017 07:05:00 09/14/2017 13:28:00 DIS Outpatient JOHNIE TAYLOR MD [facility] ABDOMINAL INCISIONAL HERNIA; SCREENING [id number] 09/11/2017 12:18:00 09/11/2017 12:50:00 DIS Outpatient JOHNIE TAYLOR MD [facility] PREOP VENTRAL ABDOMINAL INCISIONAL HERNIA [id number] 08/20/2017 22:35:00 08/21/2017 20:10:00 DIS Inpatient CHADWICK العلي MD [facility] 4TH CHEST PAIN; HTN; HX OF CAD [id number] 05/26/2017 23:26:00 05/27/2017 02:08:00 DIS Emergency TRAM JENSEN MD [facility] ER VOMITING,BLOOD IN URINE,FEVER [id number] 09/20/2016 09:32:00 09/20/2016 23:59:59 CLS Outpatient REESE HEBERT [facility] RAD MASS OF RT TEMPOROPARIETAL REGION [id number] 09/14/2016 11:53:00 09/14/2016 13:52:00 DIS Emergency HEATHER UMANA APRN [facility] ER LEFT FACIAL NUMBNESS/ TINGLING [id number] 08/03/2016 06:51:00 08/03/2016 14:00:00 DIS Outpatient JENIFER NELSON MD [facility] CATH ABNORMAL STRESS,CAD, CHEST PAIN,HTN,HLP [id number] 07/02/2016 18:46:00 07/02/2016 21:00:00 DIS Emergency TRAM JENSEN MD [facility] ER PAIN [id number] 07/02/2016 07:49:00 07/02/2016 13:17:00 DIS Emergency GARCÍA WHITE MD [facility] ER CHILLS, SHAKING [id number] 06/29/2016 12:35:00 06/29/2016 23:59:59 CLS Outpatient ANTIONE LALA [facility] CARD ANXIETY,CAD, CHEST PAIN [id number] 06/20/2016 22:52:00 06/21/2016 01:21:00 DIS Emergency GARCÍA WHITE MD [facility] ER ELEVATED BLOOD PRESSURE,DIZZINESS [id number] 03/09/2016 12:02:00 03/09/2016 23:59:59 CLS Outpatient ANTIONE LALA [facility] CARD ANXIETY,CAD , CHEST PAIN,HTN [id number] 12/29/2015 10:23:00 12/29/2015 23:59:59 CLS Emergency TRAM JENSEN MD [facility] ER CHEST PAIN/ANXIETY [id number] 10/23/2015 22:50:00 10/24/2015 00:49:00 DIS Emergency MARIN JIN DO [facility] ER HEADACHE,BLURRY VISION [id number] 09/08/2015 15:17:00 09/08/2015 18:00:00 DIS Emergency HEATHER UMANA APRN [facility] ER BODY ACHES, LETHARGIC [id number] 08/28/2015 20:52:00 08/28/2015 22:47:00 DIS Emergency MARIN JIN DO [facility] ER CHEST PAIN [id number] 07/03/2015 11:51:00 07/03/2015 23:59:59 CLS Outpatient ANTIONE LALA [facility] LAB CAD,HTN [id number] 10/06/2014 17:41:00 10/06/2014 23:59:59 CLS Outpatient JOHNIE TAYLOR MD [facility] LABNPT UMBILICAL WOUND [id number] 06/15/2014 18:44:00 06/15/2014 21:57:00 DIS Emergency GARCÍA WHITE MD [facility] ER COUGH [id number] 05/29/2014 06:00:00 05/29/2014 14:40:00 DIS Outpatient JOHNIE TAYLOR MD [facility] SDC UMBILICAL HERNIA [id number] 05/22/2014 12:07:00 05/22/2014 23:59:59 CLS Outpatient JOHNIE TAYLOR MD [facility] PREOP UMBILICAL HERNIA [id number] 03/27/2014 11:56:00 03/27/2014 23:59:59 CLS Outpatient JOHNIE TAYLOR MD [facility] PREOP UMBILICAL HERNIA [id number] 01/13/2014 22:00:00 01/14/2014 17:00:00 DIS Inpatient VERO EVRDUGO DO [facility] CSD CHEST PAIN,HTN [id number] 10/02/2013 09:14:00 10/02/2013 23:59:59 CLS Outpatient ANTIONE LALA [facility] CARD CAD,COPD, ANXIETY,HTN [id number] 09/17/2013 09:15:00 09/17/2013 23:59:59 CLS Outpatient LINDA VELASCO APRN [facility] RAD SIX MONTH F/U [id number] 09/02/2013 20:46:00 09/02/2013 22:24:00 DIS Emergency GARCÍA WHITE MD [facility] ER HEARTBURN [id number] 04/16/2013 20:35:00 04/17/2013 22:30:00 DIS Outpatient JERRY MD, JENIFER La [facility] CATH CHEST PAIN,CHF [id number] 03/04/2013 03:49:00 03/04/2013 04:46:00 DIS Emergency GUICHO THIBODEAUX, GIACOMO Garcia [facility] ER FALL, HEAD INJ [id number] 07/03/2015 11:51:00 Document Registration [id number] 07/03/2015 11:51:00 Document Registration [id number] 07/03/2015 11:51:00 Document Registration [id number] 07/03/2015 11:51:00 Document Registration [id number] 01/21/2015 01:00:00 Document Registration [id number] 01/15/2015 06:10:00 Document Registration [id number] 01/31/2013 20:15:00 Document Registration [id number] 08/06/2012 13:54:00 Document Registration [id number] 05/25/2010 20:16:00 Document Registration [id number] 07/03/2015 11:53:45 ACT Document Registration
--- NOTE | 2018-04-20 09:15 | Ophthalmologist Pre-Op Note ---
Pre-Operative Progress Note H&P Reviewed The H&P was reviewed, patient examined and no changes noted. Date H&P Reviewed: Apr 20, 2018 Time H&P Reviewed: 09:15 Pre-Op Dx Secondary Cataract, Right Eye ABHIJIT DESOUZA MD Apr 20, 2018 09:15
[2018-04-20 09:20] VITALS: BP 130/69
--- NOTE | 2018-04-20 09:42 | Ophthalmology Operative Report ---
YAG Capsulotomy PREOPERATIVE DIAGNOSIS: Secondary Cataract Left Eye POSTOPERATIVE DIAGNOSIS: Secondary Cataract Left Eye PROCEDURE: YAG Capsulotomy, left eye SURGEON: Galileo Desouza ANESTHESIA: Topical anesthesia COMPLICATIONS: None ESTIMATED BLOOD LOSS: Minimal DESCRIPTION OF PROCEDURE: After proper informed consent was obtained, the patient's, a 72 female left eye received one drop of Tropicamide and one drop of Tetracaine. The patient was then placed at the YAG laser and using a power of [ 3.8] millijoules and [ 18] bursts were used to fashion a central capsulotomy. The patient tolerated the procedure well without complications and the patient's pressure was [ 11] shortly after the laser. GALILEO DESOUZA MD Apr 20, 2018 09:42
== END 2018-04-20 09:20 | disposition home or self-care (01) ==
LOC: SDC 08:16
PROVIDERS: ATTEND Specialist
DX: H26.40 Unspecified secondary cataract (principal); E11.36 Type 2 diabetes mellitus with diabetic cataract; I25.10 Atherosclerotic heart disease of native coronary artery without angina pectoris; I10 Essential (primary) hypertension; J44.9 Chronic obstructive pulmonary disease, unspecified; Z95.5 Presence of coronary angioplasty implant and graft; Z79.82 Long term (current) use of aspirin; Z79.84 Long term (current) use of oral hypoglycemic drugs; Z79.899 Other long term (current) drug therapy

== ENCOUNTER 2021-04-12 22:22 | Emergency (ER) | payer MEDICARE, MEDICAID ==
[~2021-04-12] VITALS: Ht 162.6 cm; Wt 113.4 kg
[~2021-04-12 22:22] MED LIST changes: +ASPI-1238 PO; -ASPI-983 PO; -CALC500T3 PO; +CALC500T64 PO; -CIPR500T4 PO; +CIPR500T5 PO; +DILT180C85 PO; -LOSA25TA21 PO; +LOSA25TA41 PO; +METF-397 PO; -METF500T5 PO; -MONT10TA24 PO; +MONT10TA32 PO; -PANT40TA3 PO; +PANT40TA52 PO
--- NOTE | 2021-04-12 23:29 | ED Hip Pain/Injury ---
General Chief Complaint: Hip/Pelvic Problems Stated Complaint: R LEG PAIN Nursing Triage Note: PT TO ROOM 06 VIA W/C WITH C/O RIGHT HIP PAIN. PT REPORTS RIGHT HIP ACHING X3 WEEKS AND THAT HIP STARTED HURTING TODAY. PT REPORTS SHE HAS NOT SEEN HER PCP FOR THIS C/O. PT STATES THAT SHE WAS GOING TO GO TO HER CHIROPRACTOR AND "HAD BEEN JUST PUTTING IT OFF". Source: patient ([place]AG[place], LIMITED HISTORIAN) History of Present Illness Date Seen by Provider: Apr 12, 2021 Time Seen by Provider: 22:40 Initial Comments PT ARRIVES VIA POV FROM HOME, DAUGHTER MARTHA HARDY DROVE HER HERE C/O RIGHT HIP PAIN--CHRONIC PROBLEM FOR YEARS, WORSE FOR THE LAST 9 MONTHS OR MORE, AND HAS BEEN ACHING MORE THE LAST FEW WEEKS, BUT STATES THAT AROUND 2029 TONIGHT, SHE WAS CHANGING HER PANTS, AND WHEN SHE LIFTED UP HER RIGHT LEG, SHE BEGAN HAVING MORE PAIN IN RIGHT HIP C/O BILATERAL LEG "WEAKNESS" --CHRONIC PROBLEM FOR YEARS, AND IS NO DIFFERENT TODAY NO FALL OR ANY DIRECT TRAUMA NO PARESTHESIAS OR MOTOR DEFICITS NO CHANGE IN BOWEL/BLADDER CONTROL--HAS CHRONIC URINARY INCONTINENCE STATES NORMALLY SHE USES A WALKER, BUT HAS NOT USED IT LATELY STATES NORMALLY SHE DOES NOT GO OUT, AND IS VERY SEDENTARY STATES THIS WEEKEND, SHE PICKED HER 3 GRANDSONS UP AND DROVE THEM TO A FISHING TOURNAMENT IN [place], [place]. 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 THIS IS MUCH MORE ACTIVITY THAN SHE NORMALLY DOES. HAS NOT SOUGHT CARE BY HER PCP FOR THIS PROBLEM HAS NOT TAKEN ANYTHING FOR PAIN AT ANY TIME TODAY STATES SHE DID NOT GET UP UNTIL NOON, AND TOOK HER MORNING MEDICATIONS AT NOON HAS NOT TAKEN ANY OTHER MEDICATIONS TODAY PT DOES NOT KNOW ANY OF HER MEDICATIONS, BUT STATES THAT SHE DOES HAVE A PILL FOR ARTHRITIS THAT SHE IS SUPPOSED TO TAKE 3 TIMES A DAY BUT ONLY TAKES ONCE A DAY, AND DOES NOT THINK SHE HAS TAKEN ONE TODAY--HAS NO IDEA WHAT THE NAME OF THE MEDICATION IS, AND DOES NOT HAVE ANY OF HER MEDICATIONS OR A LIST OF HER MEDICATIONS WITH HER. Other PCP; [facility] Allergies and Home Medications Allergies Coded Allergies: sulfabenzamide (Unverified Allergy, Mild, 03/27/12) erythromycin base (Verified Allergy, Unknown, 10/17/06) penicillin G (Verified Allergy, Unknown, 10/17/06) nitrofurantoin (Verified Adverse Reaction, Unknown, 07/02/16) Possible cause of acute hepatitis Home Medications Acetaminophen 325 Mg Tablet, 650 MG PO Q4H PRN for PAIN-MILD, (Reported) TAKES 2 (325MG) TABLETS Albuterol Sulfate 1 Puff Puff, 2 PUFF IH QID PRN for SHORTNESS OF BREATH, (Reported) 1 PUFF = 90 MCG Aspirin 81 Mg Tablet.dr, 81 MG PO DAILY, (Reported) Bimatoprost 2.5 Ml Drops, 1 DROP OU HS, (Reported) Calcium Carbonate 500 Mg Tablet, 500-1,000 MG PO TID PRN for INDIGESTION, (Reported) Calcium Carbonate/Vitamin D3 1 Each Tablet, 1 TAB PO DAILY, (Reported) Carboxymethylcellulose Sodium 15 Ml Drops, 1 DROP OU BID PRN for DRY EYES, (Reported) Diltiazem HCl 180 Mg Cap.er.24h, 180 MG PO DAILY, (Reported) Fluticasone Propionate 16 Gm [place].susp, 2 SPRAYS NS BID, (Reported) Hydrocodone Bit/Acetaminophen 1 Each Tablet, 0.5-1 TAB PO Q4H PRN for PAIN- MODERATE, (Reported) Losartan Potassium 25 Mg Tablet, 25 MG PO DAILY, (Reported) Magnesium Oxide 250 Mg Tablet, 250 MG PO DAILY, (Reported) Meloxicam 15 Mg Tablet, 15 MG PO HS, (Reported) Metformin HCl 500 Mg Tablet, 750 MG PO BID WITH MEALS, (Reported) TAKES 1 & 1/2 (500MG) TABLET Montelukast Sodium 10 Mg Tablet, 10 MG PO HS, (Reported) Multivitamin 1 Each Tablet, 1 TAB PO DAILY, (Reported) Nitroglycerin 0.4 Mg Tab.subl, 0.4 MG SL UD PRN for CHEST PAIN, (Reported) [place] 3 Polyunsat Fatty Acids 1,000 Mg Cap, 1,000 MG PO HS, (Reported) [place] 3 Polyunsat Fatty Acids 1,000 Mg Cap, 2,000 MG PO DAILY, (Reported) TAKES 2 (1000MG) CAPSULES Pantoprazole Sodium 40 Mg Tablet.dr, 40 MG PO DAILY, (Reported) Patient Home Medication List Home Medication List Reviewed: Yes Review of Systems Constitutional: no symptoms reported Musculoskeletal: see HPI, other (STATES LEFT KNEE "ALWAYS GIVES OUT" BUT HAS NOT FALLEN OR HAD ANY TRAUMA RECENTLY) Skin: no symptoms reported Psychiatric/Neurological: No Symptoms Reported Past Svvijyl-Snzjfn-Mrmucc Hx Past Med/Social Hx: Reviewed and Corrections made Patient Social History Alcohol Use: Denies Use Smoking Status: Never a Smoker 2nd Hand Smoke Exposure: Yes (AT WORK) Recent Infectious Disease Expo: No Recent Hopitalizations: No Immunizations Up To Date Tetanus Booster (TDap): Less than 5yrs Date of Pneumonia Vaccine: Jul 18, 2012 Date of Influenza Vaccine: Sep 04, 2017 Seasonal Allergies Seasonal Allergies: Yes Past Medical History Surgeries: Yes (CATH 2011,[id number], D&C 80', SUZY 78', UMB HERNIA REPAIR) Abdominal, Cardiac, Coronary Stent, Eye Surgery, Gallbladder Respiratory: Yes (WEARS CPAP SOMETIMES AT HOME, COPD) Asthma, Sleep Apnea, COPD Currently Using CPAP: Yes Cardiac: Yes (STENT x1) Coronary Artery Disease, High Cholesterol, Hypertension Neurological: Yes Headaches /Migraines 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 Disorders: No Female 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 Sexually Transmitted Disease: No HIV/AIDS: No Genitourinary: No Gastrointestinal: Yes (SOME CONSTIPATION) Abdominal Hernia, Gastroesophageal Reflux, Chronic Constipation Musculoskeletal: Yes Arthritis, Rheumatoid Arthritis, Chronic Back Pain Endocrine: Yes (OBESITY) Diabetes, Non-Insulin dep HEENT: Yes Cataract, Glaucoma Cancer: No Psychosocial: No Integumentary: Yes Psoriasis Blood Disorders: No Adverse Reaction/Blood Tranf: No Family Medical History Cancer 03 MOTHER, Cataract 03 MOTHER, Chest pain 03 FATHER, Congenital heart disease 03 FATHER, Congestive heart failure 03 FATHER, Family history: Arthritis 03 MOTHER, Family history: Asthma 03 MOTHER, Family history: Cardiovascular disease 03 FATHER, Family history: Coronary thrombosis 03 MOTHER, Family history: Diabetes mellitus 09 SISTER Family history: Hypertension 03 FATHER, 03 MOTHER, 09 SISTER 09 SISTER 09 SISTER 09 SISTER Family history: Thyroid disorder 03 MOTHER, Headache 03 FATHER, 03 MOTHER, 09 SISTER 09 SISTER 09 SISTER 09 SISTER Hearing loss 09 SISTER Heart disease 03 FATHER, Hypercholesterolemia 03 FATHER, 09 SISTER Myocardial infarction 03 FATHER, Parkinson's disease 03 MOTHER, Psychotic disorder 09 SISTER Stroke 09 SISTER Visual impairment 03 FATHER, 03 MOTHER, 09 SISTER 09 SISTER 09 SISTER 09 SISTER No Family History of: Abdominal aortic aneurysm [place]'s disease Alcoholism Aphasia Aphasia Cancer of colon Cystic fibrosis Dementia Dysphagia Family history: Allergy Family history: Alzheimer's disease Family history: Breast disease Family history: Gastrointestinal disease Family history: Glaucoma Family history: Osteoporosis Hereditary disease History of - anemia History of - disorder History of - respiratory disease History of drug abuse Human immunodeficiency virus (HIV) seropositivity Infertile Kidney disease Malignant neoplasm of lung Prostate cancer Seizure disorder Tuberculosis Physical Exam Vital Signs Vital Signs - First Documented 04/12/21 04/13/21 22:40 00:22 Temp 36.4 Pulse 86 Resp 18 B/P (MAP) 188/110 (136) Pulse Ox 100 O2 Delivery Room Air Capillary Refill : Less Than 3 Seconds Height, Weight, BMI Height: 5'5.00" Weight: 250lbs. 0.0oz. 113.250032ng; 42.00 BMI Method:Stated General Appearance: No Apparent Distress, WD/WN, Obese Cardiovascular: Regular Rate, Rhythm, No Edema, No Murmur, Normal Peripheral Pulses Respiratory: Normal Breath Sounds Gastrointestinal: Non Tender, Soft Back: No Vertebral Tenderness Extremity: Other (TENDERNESS TO RIGHT > LEFT HIP. MOTOR/SENSORY/VASCULAR INTACT. ) Neurologic/Psychiatric: Alert, Oriented x3, No Motor/Sensory Deficits, Normal Mood/Affect, pan shover II-XII Norm as Tested Skin: Normal Color, Warm/Dry; No Rash Progress/Results/Core Measures Results/Orders My Orders Orders - KATT PAGAN DO Femur, Right, 2 Views (04/12/21 22:45) Pelvis With Right Hip 2-3views (04/12/21 22:45) Lumbar Spine - 2-3 Views (04/12/21 22:45) Ketorolac Injection (Toradol Injection) (04/13/21 00:15) Medications Given in ED Current Medications Medications Dose Ordered Sig/Tyra Route Start Time Stop Time Status Last Admin Dose Admin Ketorolac Tromethamine 60 mg ONCE ONCE IM 04/13/21 00:15 04/13/21 00:16 DC 04/13/21 00:20 60 MG Vital Signs/I&O 04/12/21 04/13/21 22:40 00:22 Temp 36.4 36.4 Pulse 86 86 Resp 18 18 B/P (MAP) 188/110 (136) 188/110 (136) Pulse Ox 100 O2 Delivery Room Air Room Air Blood Pressure Mean: 136 Diagnostic Imaging Comments XRAYS: ALL PENDING RADIOLOGIST REVIEW LUMBAR SPINE--DEGENERATIVE CHANGES, NO ACUTE PROCESS PELVIS/RIGHT HIP--NO ACUTE PROCESS RIGHT FEMUR--NO ACUTE PROCESS Reviewed: Reviewed by Me Departure Impression Primary Impression: Hip pain Disposition: HOME, SELF-CARE Condition: Stable Departure-Patient Inst. Decision time for Depature: 00:01 Referrals: [facility] (PCP) Primary Care Physician REESE HEBERT (Family) Primary Care Physician Patient Instructions: Hip Pain (DC), Hip Pain in Older People Add. Discharge Instructions: ALTERNATE ICE AND HEAT TO AREA AT 20 MINUTE INTERVALS USE YOUR WALKER AT ALL TIMES TAKE YOUR PRESCRIBED MEDICATION FOR ARTHRITIS FOLLOW UP WITH YOUR DR IN A FEW DAYS IF NO BETTER All discharge instructions reviewed with patient and/or family. Voiced understanding. KATT PAGAN DO Apr 12, 2021 23:29
[2021-04-13] MEDS ORDERED: KETOROLAC 60 MG/2 ML VIAL IM ONE (00:15)
[2021-04-13 00:22] VITALS: BP 188/110
--- NOTE | 2021-04-13 05:33 | Diagnostic Imaging Report ---
INDICATION: Right hip pain COMPARISON: None. FINDINGS: Multiple radiographic views of the right femur were obtained and show no fractures, dislocations, or other acute bony abnormalities. Moderate osteoarthritic changes of the right knee are noted. Otherwise, joint spaces are well maintained throughout. The soft tissues appear unremarkable. No radiopaque foreign bodies are identified. IMPRESSION: Moderate osteoarthritic changes of the right knee, but no evidence of acute fracture or dislocation of the right femur. Dictated by: Dictated on workstation # [id number]
--- NOTE | 2021-04-13 05:46 | Diagnostic Imaging Report ---
INDICATION: Right hip pain COMPARISON: None. FINDINGS: AP view of the pelvis and 2 dedicated radiographic views of the right hip were obtained. There is no fracture, dislocation, bone destruction, or radiopaque foreign body. The visualized pelvic osseous structures and the SI joints demonstrate no acute fracture or dislocation. There is no bone destruction or radiopaque foreign body. The surrounding soft tissue structures are unremarkable. IMPRESSION: 1. No acute fracture or dislocation in the pelvis or right hip. Dictated by: Dictated on workstation # [id number]
--- NOTE | 2021-04-13 05:46 | Diagnostic Imaging Report ---
INDICATION: Fall. Back pain. COMPARISON: None FINDINGS: Frontal and lateral views of the lumbar spine were obtained. Evaluation of the static alignment shows slight grade 1 retrolisthesis at the L2-L3 level. There is no evidence of jumped facets. Vertebral body heights are maintained. There is no acute fracture. Advanced degenerative changes are present. This consists of intervertebral disc height loss with prominent anterior and posterior disc osteophyte complex formations, as well as multilevel facet arthropathy. No unexpected radiopaque foreign bodies are seen. IMPRESSION: 1. No acute fracture or dislocation of the lumbar spine. 2. Advanced degenerative changes. Dictated by: Dictated on workstation # [id number]
== END 2021-04-13 00:22 | disposition home or self-care (01) ==
LOC: EDUNIT# 22:22 → ER 22:23
DX: M25.551 Pain in right hip (principal); E66.9 Obesity, unspecified; J44.9 Chronic obstructive pulmonary disease, unspecified; I10 Essential (primary) hypertension; K21.9 Gastro-esophageal reflux disease without esophagitis; G89.29 Other chronic pain; M54.9 Dorsalgia, unspecified; H40.9 Unspecified glaucoma; E11.9 Type 2 diabetes mellitus without complications; Z77.22 Contact with and (suspected) exposure to environmental tobacco smoke (acute) (chronic); Z68.41 Body mass index [BMI] 40.0-44.9, adult; Z88.2 Allergy status to sulfonamides; Z88.1 Allergy status to other antibiotic agents; Z88.0 Allergy status to penicillin; Z88.8 Allergy status to other drugs, medicaments and biological substances; Z79.82 Long term (current) use of aspirin; Z79.891 Long term (current) use of opiate analgesic; Z79.899 Other long term (current) drug therapy; Z79.84 Long term (current) use of oral hypoglycemic drugs
CPT/HCPCS: 72100; 73552